=== PATIENT | female | born 1945 | race Caucasian/White ===

== ENCOUNTER 2018-11-17 06:34 | Emergency (ER) | payer MEDICARE, SELFPAY ==
--- NOTE | 2018-11-17 | DI.MRI.S_ITS ---
PROCEDURE: MR ANGIO HEAD WO CON INDICATIONS: VERTIGO TECHNIQUE: Noncontrast axial 3-D [id number] MR angiogram, with 3-dimensional maximum intensity projection (MIP) reformats of the internal carotid arteries and posterior circulation then performed. COMPARISON: [facility], CT, CT HEAD/BRAIN WO CON, 11/17/2018, 6:58. [facility], MR, MR HEAD/BRAIN WO CON, 11/17/2018, 10:27. FINDINGS: Image quality: Excellent. Anterior circulation: Intracranial internal carotid arteries demonstrate normal size and intraluminal flow signal. The flow within the paired anterior cerebral arteries is normal and symmetric. The flow within the middle cerebral arteries is normal and symmetric. The anterior communicating artery appears patent. No focal stenoses, occlusions, or aneurysms. Posterior circulation: Visualized portions of the vertebral arteries demonstrate normal caliber, and join to form a normal appearing basilar artery. The flow within the posterior cerebral arteries is normal and symmetric. No focal stenoses, occlusions, or aneurysms. IMPRESSION: 1. No focal stenosis or occlusion of the central intracranial arteries. Dictated by: Mk Whaley M.D. on 11/17/2018 at 11:25 Approved by: Mk Whaley M.D. on 11/17/2018 at 11:28
[2018-11-17 06:42] VITALS: BP 143/73; PULSE 62; RESP 15; TEMP 37.4; O2SAT 100; BMI 24.8
[2018-11-17 07:04] LABS: Add Manual Diff / Slide Review NO; Basophils Absolute Auto 100 /uL (0-100); Basophils Percent Auto 1.2 % (0-2); Eosinophils Absolute Auto 100 /uL (0-450); Eosinophils Percent Auto 2.1 % (2-4); Hematocrit 41.3 % (36-46); Hemoglobin 13.8 g/dL (12.0-16.0); Lymphocytes Absolute Auto 1400 /uL (1100-4500); Lymphocytes Percent Auto 26.2 % (25-40); Mean Corpuscular HGB Conc 33.4 % (30-36); Mean Corpuscular Hemoglobin 31.5 PG (26-34); Mean Corpuscular Volume 94.5 fL (80-100); Monocytes Absolute Auto 500 /uL (0-900); Monocytes Percent Auto 8.8 % (3-14); Neutrophils Absolute Auto 3300 /uL (1500-7000); Neutrophils Percent Auto 61.7 % (50-75); Platelet Count 207 X10^3/uL (150-400); Red Blood Cell Count 4.37 X10^6/uL (4.0-5.2); Red Cell Distribution Width 13.1 % (11.6-14.8); White Blood Cell Count 5.3 X10^3/uL (4.5-11.0)
[2018-11-17 07:05] LABS: Prothrombin Time 11.2 SECONDS (10.1-12.7)
[2018-11-17 07:07] LABS: PTT Partial Thromboplastin Tim 26 SECONDS (26.4-36.2)
--- NOTE | 2018-11-17 07:07 | ED_ITS ---
HPI - Dizziness General Chief Complaint: Dizziness Stated Complaint: Vertigo Time Seen by Provider: 11/17/18 06:53 Source: patient Mode of arrival: ambulatory Limitations: no limitations History of Present Illness HPI Narrative: Patient is a 73-year-old female here for evaluation of which she thinks is vertigo. She states that this morning she went to get out of bed to go to the bathroom when she had an episode of vertigo. She states she has had vertigo in the past. She states that this felt somewhat like her prior episodes however was not as severe. She cannot specifically say that she thought it was a room spinning sensation however she thinks it was this. She was able to walk to the bathroom without any problems. Went back and got into bed. Still had the symptoms. He came in because she stated that the last time she had vertigo lasted for extended period of time and she wanted to get medications before this happened again. She denied any other associated symptoms to include headache, vision changes, ringing in her ears, palpitations , chest pain or shortness of breath. She has had TIAs in the past. She states that her symptoms associated that were problems with speaking. She has no residual deficits. She has had a history of an AR in the past. She had an angioplasty. No cardiac stents. She does take an 81 mg aspirin on a daily basis but however has stopped this medication recently because she is scheduled to undergo a manipulation under anesthesia for a right total knee arthroplasty complications. Patient states that her symptoms do seem to reoccur when she moves her head however it is not every time she moves her head. The symptoms also occur when she is not moving. Related Data Previous Rx's Medication Instructions Recorded aspirin 81 mg tablet,delayed 81 mg PO DAILY #30 tab 04/07/18 release atenolol 25 mg tablet 25 mg PO DAILY #30 tab 04/07/18 meclizine 25 mg PO BID-TID PRN #20 tab 11/17/18 Allergies Allergy/AdvReac Type Severity Reaction Status Date / Time hydrocodone Allergy Verified 04/07/18 10:43 Review of Systems Constitutional Denies fatigue, Denies fever(s), Denies headache(s), Denies lethargy, Denies malaise and Denies weakness Eyes Denies blurry vision and Denies diplopia ENT Ears, Nose, Mouth, and Throat: Reports vertigo, Reports dizziness, Denies headache(s), Denies hearing loss, Denies neck mass, Denies neck pain, Reports disequilibrium and Denies sinus pressure Cardiovascular Denies chest pain, Denies syncope, Denies palpitations and Denies dyspnea Respiratory Denies cough and Denies dyspnea Gastrointestinal Gastrointestinal: Denies abdominal pain, Denies change in bowel habits, Denies cramping, Denies nausea and Denies vomiting Genitourinary Denies dysuria Musculoskeletal Denies myalgias, Denies arthralgias, Denies neck pain and Denies tingling Integumentary/Breasts Denies lesions and Denies rash Neurologic Denies abnormal speech, Denies behavioral changes, Reports vertigo, Reports dizziness, Denies syncope, Denies headache(s), Denies tingling, Reports disequilibrium and Denies weakness Psychiatric Denies behavioral changes Endocrine Denies fatigue and Denies palpitations Hematologic/Lymphatic Comments: Not on anticoagulation PFSH Medical History Coronary artery disease (Acute) TIA (transient ischemic attack) (Acute) Surgical History H/O total knee replacement (Acute) Social History Smoking Status: Never smoker Social History Smoking Status: Never smoker Exam Initial Vital Signs Initial Vital Signs: Vital Signs Temperature 99.4 F 11/17/18 06:42 Pulse Rate 62 11/17/18 06:42 Respiratory Rate 15 11/17/18 06:42 Blood Pressure 143/73 H 11/17/18 06:42 Pulse Oximetry 100 11/17/18 06:42 Const General: cooperative, healthy appearing, comfortable, well developed, well groomed and No acute distress Orientation: alert, awake and oriented x3 HENMT Head: normal to inspection and normocephalic Ears: TM's normal bilaterally Resp Effort & Inspection: normal respiratory effort Auscultation: clear to auscultation bilaterally Cardio Rate: regular rate Rhythm: regular rhythm Pulses: radial pulses present GI Inspection: non-distended Palpation: soft, No firm and No tender Back/Spine/Pelvis Back: No CVA tenderness Skin Lesions: no lesions Rashes: no rashes Neuro General: alert, awake and oriented x3 Cranial Nerves: CN's II-XI intact bilaterally Cognition: normal cognition Speech: speech normal Motor: muscle tone normal throughout Sensory Exam: no sensory deficits noted Other: Joaquín-Hallpike negative both left and right Extrem General: normal to inspection and capillary refill normal Psych Appearance: grossly normal and well kempt Course Orders Ordered: ED Orders 11/17/18 06:47 Basic Metabolic Panel Stat Complete Blood Count AUTO DIFF Stat Partial Thromboplastin Time Stat Prothrombin Time INR Stat 11/17/18 06:57 EKG-12 Lead Stat 11/17/18 07:10 CT head/brain wo con Stat 11/17/18 07:15 Urine Culture Stat Urine Drug Screen, Rapid Stat Urine Microscopic Stat 11/17/18 07:48 MR head/brain wo con Stat Sodium Chloride (Normal Saline 0.9%) 1,000 mls @ 150 mls/hr IV CONT JESUS Last Admin: 11/17/18 08:40 Dose: 150 mls/hr Discontinued Medications Diazepam (Valium) 5 mg PO NOW ONE Stop: 11/17/18 08:04 Last Admin: 11/17/18 10:08 Dose: 5 mg Vital Signs - 8 hr 11/17/18 06:42 11/17/18 07:23 11/17/18 07:30 Temperature 99.4 F Pulse Rate 62 63 56 L Respiratory Rate 15 14 19 Blood Pressure 143/73 H Blood Pressure [Left Arm] 155/61 H 135/63 Pulse Oximetry 100 97 100 11/17/18 10:00 Temperature Pulse Rate 66 Respiratory Rate 12 Blood Pressure Blood Pressure [Left Arm] 123/60 Pulse Oximetry 100 MDM - Dizziness Lab Data Attestation: I reviewed the patient's lab results. Result diagrams: 11/17/18 06:47 11/17/18 06:47 Lab Results 11/17/18 11/17/18 11/17/18 Range/Units 06:47 06:47 06:47 WBC 5.3 (4.5-11.0) X10^3/uL RBC 4.37 (4.0-5.2) X10^6/uL Hgb 13.8 (12.0-16.0) g/dL Hct 41.3 (36-46) % MCV 94.5 (80-100) fL MCH 31.5 (26-34) PG MCHC 33.4 (30-36) % RDW 13.1 (11.6-14.8) % Plt Count 207 (150-400) X10^3/uL Neut % (Auto) 61.7 (50-75) % Lymph % (Auto) 26.2 (25-40) % Hardin % (Auto) 8.8 (3-14) % Eos % (Auto) 2.1 (2-4) % Baso % (Auto) 1.2 (0-2) % Neut # (Auto) 3300 (1105-1068) /uL Lymph # (Auto) 1400 (9590-8812) /uL Hardin # (Auto) 500 (0-900) /uL Eos # (Auto) 100 (0-450) /uL Baso # (Auto) 100 (0-100) /uL PT 11.2 (10.1-12.7) SECONDS INR 1.0 (0.9-1.3) APTT 26 L (26.4-36.2) SECONDS Sodium 137 (137-145) mmol/L Potassium 3.8 (3.4-5.1) mmol/L Chloride 105 (98-107) mmol/L Carbon Dioxide 24 (22-32) mmol/L BUN 19 H (7-17) mg/dL Creatinine 0.80 (0.52-1.04) mg/dL Estimated GFR > 60.0 (>60) mL/min BUN/Creatinine Ratio 23.8 H (6-22) Glucose 106 (80-110) mg/dL Calcium 9.3 (8.4-10.2) mg/dL Urine RBC (0-5/HPF) Urine WBC (0-5/HPF) Ur Squamous Epith Cells Urine Bacteria (None) Ur Culture Indicated? Urine Opiates Screen (Negative) Ur Oxycodone Screen (Negative) Urine Methadone Screen (Negative) Ur Barbiturates Screen (Negative) U Tricyclic Antidepress (Negative) Ur Phencyclidine Scrn (Negative) Ur Amphetamines Screen (Negative) U Methamphetamines Scrn (Negative) Ur MDMA Scrn (Ecstasy) (Negative) U Benzodiazepines Scrn (Negative) Urine Cocaine Screen (Negative) U Marijuana (THC) Screen (Negative) 11/17/18 11/17/18 Range/Units 07:15 07:15 WBC (4.5-11.0) X10^3/uL RBC (4.0-5.2) X10^6/uL Hgb (12.0-16.0) g/dL Hct (36-46) % MCV (80-100) fL MCH (26-34) PG MCHC (30-36) % RDW (11.6-14.8) % Plt Count (150-400) X10^3/uL Neut % (Auto) (50-75) % Lymph % (Auto) (25-40) % Hardin % (Auto) (3-14) % Eos % (Auto) (2-4) % Baso % (Auto) (0-2) % Neut # (Auto) (5881-2042) /uL Lymph # (Auto) (2687-1367) /uL Hardin # (Auto) (0-900) /uL Eos # (Auto) (0-450) /uL Baso # (Auto) (0-100) /uL PT (10.1-12.7) SECONDS INR (0.9-1.3) APTT (26.4-36.2) SECONDS Sodium (137-145) mmol/L Potassium (3.4-5.1) mmol/L Chloride (98-107) mmol/L Carbon Dioxide (22-32) mmol/L BUN (7-17) mg/dL Creatinine (0.52-1.04) mg/dL Estimated GFR (>60) mL/min BUN/Creatinine Ratio (6-22) Glucose (80-110) mg/dL Calcium (8.4-10.2) mg/dL Urine RBC 0-1/hpf (0-5/HPF) Urine WBC 0-1/hpf (0-5/HPF) Ur Squamous Epith Cells 0-1 /hpf Urine Bacteria Few (2-10) H (None) Ur Culture Indicated? Specimen cultured Urine Opiates Screen Positive H (Negative) Ur Oxycodone Screen Negative (Negative) Urine Methadone Screen Negative (Negative) Ur Barbiturates Screen Negative (Negative) U Tricyclic Antidepress Negative (Negative) Ur Phencyclidine Scrn Negative (Negative) Ur Amphetamines Screen Negative (Negative) U Methamphetamines Scrn Negative (Negative) Ur MDMA Scrn (Ecstasy) Negative (Negative) U Benzodiazepines Scrn Negative (Negative) Urine Cocaine Screen Negative (Negative) U Marijuana (THC) Screen Negative (Negative) Urine Dip Bedside Urine Glucose Negative Bedside Urine Bilirubin - Negative Bedside Urine Ketone - Negative Urine Specific [place] 1.015 Bedside Urine Occult Blood - Negative Bedside Urine pH 7.0 Bedside Urine Protein - Negative Bedside Urine Urobilinogen - Negative Bedside Urine Nitrite - Negative Bedside Urine Leukocytes + [address] scan - head: Radiologist's impression: [address] [id number] [address] Scan Report Signed Patient: María Flynn PMR#: [id number] : 7Acct:[id number] Age/Sex: 73 / FDate of Service: 11/17/18 Loc: ED Accession Number: [id number] Procedure: CT head/brain wo con Ordering Provider: Praful De La Fuente D.O. PROCEDURE: CT HEAD/BRAIN WO CON INDICATIONS: ataxia, dizziness, no injury, on ASA. NO TPA TECHNIQUE: Noncontrast 4.5 mm thick angled axial sections acquired from the foramen magnum to the vertex, with coronal and sagittal reformats. For radiation dose reduction, the following was used: automated exposure control, adjustment of mA and/or kV according to patient size. COMPARISON: None. FINDINGS: Image quality: Excellent. CSF spaces: Basal cisterns are patent. No extra-axial fluid collections. The ventricles are symmetric in size and shape. Brain: No intracranial bleeds or masses. There is cerebral volume loss for age , with resultant ventricular and sulcal prominence. There are periventricular and deep white matter chronic small vessel ischemic changes. Chronic, small, bilateral basal ganglia lacunar infarcts versus prominent perivascular spaces. There is intracranial internal carotid artery and vertebral artery atherosclerosis. Skull and face: Calvarium and visualized facial bones appear intact, without suspicious lesions. Sinuses: Visualized sinuses and mastoids are clear. IMPRESSION: No acute intracranial disease process. Dictated by: Hannah Bardales MD, PhD on 11/17/2018 at 7:47 Approved by: Hannah Bardales MD, PhD on 11/17/2018 at 7:49 MRI - head: Radiologist's impression: [address] [address] Magnetic Resonance Report Signed Patient: María Flynn PMR#: [id number] : 7Acct:[id number] Age/Sex: 73 / FDate of Service: 11/17/18 Loc: ED Accession Number: [id number] Procedure: MR head/brain wo con Ordering Provider: Mal Blake D.O. PROCEDURE: MR HEAD/BRAIN WO CON INDICATIONS: vertigo TECHNIQUE: Non-contrast axial T1 spin echo, axial T2 fast spin echo, sagittal and axial FLAIR, coronal T2 fast spin echo, axial gradient echo, axial diffusion and ADC through the brain. COMPARISON: [facility], CT, CT HEAD/BRAIN WO CON, 11/17/2018, 6:58. FINDINGS: Image quality: Excellent. CSF spaces: Ventricles appear symmetric in size and shape. There is minimal cerebral volume loss with prominence of the sulci. Basal cisterns are patent. No extra- axial fluid collections. Brain: No intracranial hemorrhage, mass, or mass effect. Diffusion-weighted images demonstrate no acute infarcts. There are bilateral scattered foci of subcortical and periventricular white matter T2 hyperintensity consistent with [id number] chronic small vessel ischemic changes. There is a small ovoid T2 hyperintense structure measuring up to 0.8 cm inferior to the left basal ganglia consistent with a small choroidal fissure cyst, prominent perivascular Virchow-Levon space, or sequelae of a prior lacunar infarct. There is no corresponding restricted diffusion. Faulkner/ white matter interface is preserved. Brainstem appears normal. Normal intravascular flow voids are present. Skull and face: Calvarial bone marrow is normal in signal. Orbits are normal. Sinuses: Sinuses demonstrate mild mucosal thickening within the ethmoid and sphenoid sinuses.. IMPRESSION: 1. No evidence of infarct or other acute intracranial abnormality. 2. Mild to moderate chronic white matter small vessel ischemic changes and minimal cerebral volume loss. 3. Small cystic focus inferior to the left basal ganglia compatible with a choroidal fissure cyst, a prominent Virchow-Levon space, or sequela of a prior small lacunar infarct. Dictated by: Mk Whaley M.D. on 11/17/2018 at 11:20 ECG Data Attestation: I personally reviewed and interpreted this ECG as follows: Prior ECG tracings: not available for review Interpretation: Sinus bradycardia Ventricular rate of 54 Normal axis Normal QRS Normal QTC No ST T wave changes MDM Narrative Medical decision making narrative: Patient without symptoms here in the emergency department. MRI shows no signs of a stroke. Given her history of vertigo and the lack of other definitive diagnosis I do feel like this is a peripheral vertigo. Will send home with meclizine. Patient was given care instructions. She was given return instructions. Patient expressed understanding and agreement with plan. Discharge Plan Departure Patient Disposition: Home Clinical Impression: Vertigo Instructions: Vertigo (Alternative Therapy), DI for Vertigo Activity Restrictions/Additional Instructions: Take her medication as needed as directed. I do recommend you find it primary care doctor in the area. Be careful with changing positions such as going from lying to sitting or sitting to standing. Return to the emergency department for any new or worsening symptoms Prescriptions: New meclizine 25 mg tablet 25 mg PO BID-TID PRN (Reason: motion sickness) Qty: 20 RF: 0 No Action atenolol 25 mg tablet 25 mg PO DAILY Qty: 30 RF: 0 aspirin [Adult Aspirin Regimen] 81 mg tablet,delayed release (DR/EC) 81 mg PO DAILY Qty: 30 RF: 0
[2018-11-17 07:09] LABS: BUN Creatinine Ratio 23.8 (6-22); Blood Urea Nitrogen 19 mg/dL (7-17); Calcium 9.3 mg/dL (8.4-10.2); Carbon Dioxide 24 mmol/L (22-32); Chloride 105 mmol/L (98-107); Estimated Glomerular Filt Rate > 60.0 mL/min (>60); Glucose 106 mg/dL (80-110); HEMOLYSIS < 15 (0-50); Potassium 3.8 mmol/L (3.4-5.1); Sodium 137 mmol/L (137-145)
--- NOTE | 2018-11-17 07:10 | DI.CT.S_ITS ---
PROCEDURE: CT HEAD/BRAIN WO CON INDICATIONS: ataxia, dizziness, no injury, on ASA. NO TPA TECHNIQUE: Noncontrast 4.5 mm thick angled axial sections acquired from the foramen magnum to the vertex, with coronal and sagittal reformats. For radiation dose reduction, the following was used: automated exposure control, adjustment of mA and/or kV according to patient size. COMPARISON: None. FINDINGS: Image quality: Excellent. CSF spaces: Basal cisterns are patent. No extra-axial fluid collections. The ventricles are symmetric in size and shape. Brain: No intracranial bleeds or masses. There is cerebral volume loss for age, with resultant ventricular and sulcal prominence. There are periventricular and deep white matter chronic small vessel ischemic changes. Chronic, small, bilateral basal ganglia lacunar infarcts versus prominent perivascular spaces. There is intracranial internal carotid artery and vertebral artery atherosclerosis. Skull and face: Calvarium and visualized facial bones appear intact, without suspicious lesions. Sinuses: Visualized sinuses and mastoids are clear. IMPRESSION: No acute intracranial disease process. Dictated by: Hannah Bardales MD, PhD on 11/17/2018 at 7:47 Approved by: Hannah Bardales MD, PhD on 11/17/2018 at 7:49
[2018-11-17 07:23] VITALS: BP 155/61; PULSE 63; RESP 14; O2SAT 97
[2018-11-17 07:30] VITALS: BP 135/63; PULSE 56; RESP 19; O2SAT 100
[2018-11-17 07:32] LABS: Urine Amphetamines Negative (Negative); Urine Barbiturates Negative (Negative); Urine Benzodiazepines Negative (Negative); Urine Cocaine Negative (Negative); Urine MDMA Negative (Negative); Urine Methadone Negative (Negative); Urine Methamphetamines Negative (Negative); Urine Morphine/Opi cutoff 2000 Positive (Negative); Urine Oxycodone Negative (Negative); Urine Phencyclidine Negative (Negative); Urine Tetrahydrocannabinol Negative (Negative); Urine Tricyclic Antidepressant Negative (Negative)
[2018-11-17 07:45] LABS: Bacteria Urine Few (2-10); Culture Indicated Urine Specimen Cultured; RBC Urine 0-1/HPF (0-5/HPF); Squamous Epithelial Cell Urine 0-1 /HPF; WBC Urine 0-1/HPF (0-5/HPF)
--- NOTE | 2018-11-17 07:48 | DI.MRI.S_ITS ---
PROCEDURE: MR HEAD/BRAIN WO CON INDICATIONS: vertigo TECHNIQUE: Non-contrast axial T1 spin echo, axial T2 fast spin echo, sagittal and axial FLAIR, coronal T2 fast spin echo, axial gradient echo, axial diffusion and ADC through the brain. COMPARISON: [facility], CT, CT HEAD/BRAIN WO CON, 11/17/2018, 6:58. FINDINGS: Image quality: Excellent. CSF spaces: Ventricles appear symmetric in size and shape. There is minimal cerebral volume loss with prominence of the sulci. Basal cisterns are patent. No extra-axial fluid collections. Brain: No intracranial hemorrhage, mass, or mass effect. Diffusion-weighted images demonstrate no acute infarcts. There are bilateral scattered foci of subcortical and periventricular white matter T2 hyperintensity consistent with [id number] chronic small vessel ischemic changes. There is a small ovoid T2 hyperintense structure measuring up to 0.8 cm inferior to the left basal ganglia consistent with a small choroidal fissure cyst, prominent perivascular Virchow-Levon space, or sequelae of a prior lacunar infarct. There is no corresponding restricted diffusion. Faulkner/white matter interface is preserved. Brainstem appears normal. Normal intravascular flow voids are present. Skull and face: Calvarial bone marrow is normal in signal. Orbits are normal. Sinuses: Sinuses demonstrate mild mucosal thickening within the ethmoid and sphenoid sinuses.. IMPRESSION: 1. No evidence of infarct or other acute intracranial abnormality. 2. Mild to moderate chronic white matter small vessel ischemic changes and minimal cerebral volume loss. 3. Small cystic focus inferior to the left basal ganglia compatible with a choroidal fissure cyst, a prominent Virchow-Levon space, or sequela of a prior small lacunar infarct. Dictated by: Mk Whaley M.D. on 11/17/2018 at 11:20 Approved by: Mk Whaley M.D. on 11/17/2018 at 11:25
[2018-11-17] MEDS: SODIUM CHLORIDE 0.9% 1,000 ML 150 ML IV (08:40)
--- NOTE | 2018-11-17 08:40 | PC.NURSE ---
Per patient request spoke with her to provide an update of the plan of care for his .
[2018-11-17 10:00] VITALS: BP 123/60; PULSE 66; RESP 12; O2SAT 100
[2018-11-17] MEDS: diazePAM 5 MG TABLET PO (10:08)
[2018-11-17 12:00] VITALS: BP 129/67; PULSE 65; RESP 14; O2SAT 99
== END 2018-11-17 12:01 | disposition home or self-care (01) ==
PROVIDERS: Emergency Medicine; Emergency Provider Emergency Medicine
DX: R42 Dizziness and giddiness (principal)
CPT/HCPCS: 36591; 70450; 70544; 70551; 80048; 80305; 81003; 81015; 85025; 85610; 85730; 87086; 93005; 96360; 96361; 99285

== ENCOUNTER → 2019-03-26 09:29 | Outpatient (CLI) | payer MEDICARE, SELFPAY ==
[2019-03-26 10:54] LABS: Alanine Aminotransferase 15 IU/L (9-52); Albumin 3.9 g/dL (3.5-5.0); Albumin Globulin Ratio 1.5 (1.0-2.8); Alkaline Phosphatase 49 U/L (38-126); Aspartate Aminotransferase 23 IU/L (14-36); BUN Creatinine Ratio 26.3 (6-22); Bilirubin Total 0.8 mg/dL (0.2-1.3); Blood Urea Nitrogen 21 mg/dL (7-17); Calcium 9.2 mg/dL (8.4-10.2); Carbon Dioxide 32 mmol/L (22-32); Chloride 102 mmol/L (98-107); Cholesterol 148 mg/dL (140-199); Estimated Glomerular Filt Rate > 60.0 mL/min (>60); Globulin 2.6 g/dL (1.7-4.1); Glucose 90 mg/dL (80-110); HDL Cholesterol 73 mg/dL (40-60); HEMOLYSIS < 15 (0-50); LDL Cholesterol Calculated 55 mg/dL (<100); Potassium 4.4 mmol/L (3.4-5.1); Sodium 139 mmol/L (137-145); Total Protein 6.5 g/dL (6.3-8.2); Triglycerides 100 mg/dL (35-150)
[2019-03-26 11:08] LABS: Vitamin D 25 Hydroxy (D3) 62.2 ng/mL (30.0-100.0)
== END ==
PROVIDERS: Visit Provider Internal Medicine Cardiovascular Disease
DX: E55.9 Vitamin D deficiency, unspecified (principal); I65.23 Occlusion and stenosis of bilateral carotid arteries; I25.10 Atherosclerotic heart disease of native coronary artery without angina pectoris
CPT/HCPCS: 36415; 80053; 80061; 82306

== ENCOUNTER → 2019-08-29 09:55 | Outpatient (CLI) | payer MEDICARE, SELFPAY ==
--- NOTE | 2019-08-29 | DI.MG.S_ITS ---
BILATERAL DIGITAL SCREENING MAMMOGRAM 3D/2D WITH CAD: 08/29/2019 CLINICAL: Routine screening. Family history of breast cancer. Comparison is made to exams dated: 11/16/2014 mammogram - [facility], 01/17/2016 mammogram, 09/10/2017 mammogram, and 08/27/2018 mammogram - [facility]. The tissue of both breasts is heterogeneously dense. This may lower the sensitivity of mammography. Current study was also evaluated with a Computer Aided Detection (CAD) system. There are possible 0.3 cm grouped fine calcifications in the right breast posterior depth lateral region seen on the craniocaudal view only. These are increased in number. No other significant masses, calcifications, or other findings are seen in either breast. IMPRESSION: INCOMPLETE: NEEDS ADDITIONAL IMAGING EVALUATION The possible 0.3 cm grouped fine calcifications in the right breast are indeterminate. Mediolateral and spot magnification views are recommended. This exam was interpreted at Station ID: [id number]. NOTE: For mammograms, a report in lay terms will be sent to the patient. Approximately 15% of breast malignancies will not be visualized mammographically. In the management of a palpable breast mass, a negative mammogram must not discourage biopsy of a clinically suspicious lesion. Electronically Signed By: Alexandru royal/le:08/31/2019 07:13:47 letter sent: Additional Imaging Needed ACR BI-RADS Category 0: Incomplete [id number]
== END ==
DX: Z12.31 Encounter for screening mammogram for malignant neoplasm of breast (principal); Z80.3 Family history of malignant neoplasm of breast
CPT/HCPCS: 77063; 77067

== ENCOUNTER → 2019-09-15 13:58 | Outpatient (CLI) | payer MEDICARE, SELFPAY ==
--- NOTE | 2019-09-15 | DI.MG.S_ITS ---
UNILATERAL RIGHT DIGITAL DIAGNOSTIC MAMMOGRAM 3D/2D WITH ADDITIONAL VIEWS: 09/15/2019 CLINICAL: Additional evaluation requested from prior study. Comparison is made to exams dated: 08/29/2019 mammogram - [facility], 08/27/2018 mammogram, and 09/10/2017 mammogram - [facility]. The tissue of right breast is heterogeneously dense. This may lower the sensitivity of mammography. Previously identified calcifications in the right breast posterior depth lateral region seen on the craniocaudal view only on comparison screening mammogram of 08/29/19 demonstrate a more punctate morphology on magnification views; these calcifications are less prominent than on comparison screening exam and may have been accentuated by tomosynthesis reconstruction artifact. IMPRESSION: PROBABLY BENIGN Persistent punctate calcifications in the right breast posterior depth lateral region best seen on the craniocaudal view are less prominent than on comparison screening exam and are probably benign. A follow-up diagnostic mammogram in 6 months is recommended to demonstrate stability and to exclude underlying malignancy. The patient was advised to monitor her breasts and to return sooner for reevaluation if she feels anything grow or change in her breasts. This exam was interpreted at Station ID: [id number]. NOTE: For mammograms, a report in lay terms will be sent to the patient. Approximately 15% of breast malignancies will not be visualized mammographically. In the management of a palpable breast mass, a negative mammogram must not discourage biopsy of a clinically suspicious lesion. Electronically Signed By: Christopher Salazar M.D. ecl/:09/15/2019 14:55:05 letter sent: Followup Recommended ACR BI-RADS Category 3: Probably benign [id number]
== END ==
PROVIDERS: Visit Provider Internal Medicine
DX: R92.1 Mammographic calcification found on diagnostic imaging of breast (principal)
CPT/HCPCS: 77065; G0279

== ENCOUNTER → 2020-02-29 12:46 | Outpatient (CLI) | payer MEDICARE, SELFPAY ==
--- NOTE | 2020-02-29 12:49 | DI.MG.S_ITS ---
UNILATERAL RIGHT DIGITAL DIAGNOSTIC MAMMOGRAM 3D/2D SHORT-TERM FOLLOW-UP: 02/29/2020 CLINICAL: Patient returns for a 6 month follow up of the right breast. Comparison is made to exams dated: 09/15/2019 mammogram, 08/29/2019 mammogram - [facility], and 08/27/2018 mammogram - [facility]. The tissue of right breast is heterogeneously dense. This may lower the sensitivity of mammography. There are stable grouped fine punctate calcifications in the right breast at 11 o'clock posterior depth. No other significant masses or calcifications are seen in the breast. IMPRESSION: PROBABLY BENIGN The grouped fine punctate calcifications in the right breast are stable. A follow-up mammogram and possible ultrasound in 6 months is recommended to demonstrate stability. This exam was interpreted at Station ID: [id number]. NOTE: For mammograms, a report in lay terms will be sent to the patient. Approximately 15% of breast malignancies will not be visualized mammographically. In the management of a palpable breast mass, a negative mammogram must not discourage biopsy of a clinically suspicious lesion. Electronically Signed By: Rachel Henderson M.D. lk/:03/01/2020 14:02:23 letter sent: Followup Recommended ACR BI-RADS Category 3: Probably benign [id number]
== END ==
PROVIDERS: PCP Internal Medicine; Referring Provider Internal Medicine; Visit Provider Internal Medicine
DX: R92.8 Other abnormal and inconclusive findings on diagnostic imaging of breast (principal); R92.1 Mammographic calcification found on diagnostic imaging of breast
CPT/HCPCS: 77065; G0279

== ENCOUNTER → 2020-04-29 08:12 | Outpatient (CLI) | payer MEDICARE, SELFPAY ==
[2020-04-29 10:51] LABS: Alanine Aminotransferase 20 IU/L (<35); Albumin 4.1 g/dL (3.5-5.0); Albumin Globulin Ratio 1.6 (1.0-2.8); Alkaline Phosphatase 54 U/L (38-126); Aspartate Aminotransferase 28 IU/L (14-36); BUN Creatinine Ratio 21.1 (6-22); Bilirubin Total 0.7 mg/dL (0.2-1.3); Blood Urea Nitrogen 19 mg/dL (7-17); Calcium 9.6 mg/dL (8.4-10.2); Carbon Dioxide 30 mmol/L (22-32); Chloride 104 mmol/L (98-107); Cholesterol 149 mg/dL (140-199); Estimated Glomerular Filt Rate > 60.0 mL/min (>60); Globulin 2.6 g/dL (1.7-4.1); Glucose 96 mg/dL (80-110); HDL Cholesterol 60 mg/dL (40-60); HEMOLYSIS < 15 (0-50); LDL Cholesterol Calculated 59 mg/dL (<100); Potassium 5.3 mmol/L (3.4-5.1); Sodium 138 mmol/L (137-145); Total Protein 6.7 g/dL (6.3-8.2); Triglycerides 148 mg/dL (35-150)
== END ==
PROVIDERS: PCP Internal Medicine; Referring Provider Internal Medicine; Visit Provider Internal Medicine
DX: R73.03 Prediabetes (principal); E78.5 Hyperlipidemia, unspecified; I10 Essential (primary) hypertension; I65.23 Occlusion and stenosis of bilateral carotid arteries
CPT/HCPCS: 36415; 80053; 80061; 83036; 84443

== ENCOUNTER 2020-06-24 17:53 | Emergency (ER) | payer MEDICARE, SELFPAY ==
[2020-06-24] VITALS (11 sets, daily range): BP systolic 121–164; BP diastolic 58–69; PULSE 69–76; RESP 18; O2SAT 94–98; BMI 26.1
--- NOTE | 2020-06-24 18:05 | ED_ITS ---
HPI - Abdominal Pain General Chief Complaint: Abdominal Pain Stated Complaint: abdominal pain since 2pm Time Seen by Provider: 06/24/20 18:05 Source: patient Mode of arrival: Ambulatory Limitations: no limitations History of Present Illness HPI narrative: 74-year-old woman with a history of an [place], prior TIA hypertension and hyperlipidemia who presents with worsening abdominal pain over the course of today. Awoke with mild low pelvic cramping and this progressed to increasing abdominal pain through the entire abdomen and now is having some sharp pain in the midepigastrium. She has had 3 bowel movements without diarrhea. She has some mild nausea but has not vomited. Abdominal surgeries include tubal ligati on. Related Data Home Medications Medication Instructions Recorded Confirmed aspirin 325 mg PO DAILY 11/17/18 05/25/20 ferrous gluconate 324 mg PO BID 11/17/18 05/25/20 atorvastatin 40 mg tablet 40 mg PO DAILY 12/11/19 05/25/20 Previous Rx's Medication Instructions Recorded atenolol 25 mg tablet 25 mg PO DAILY #30 tab 04/07/18 meclizine 25 mg PO BID-TID PRN #20 tab 11/17/18 benzonatate 100 mg capsule 100 mg PO BID PRN #30 cap 12/11/19 ondansetron 4 mg disintegrating 4 mg PO Q6H PRN #10 tab 05/25/20 tablet ciprofloxacin HCl 500 mg PO BID #14 tab 06/24/20 metronidazole 500 mg PO TID #21 tab 06/24/20 Allergies Allergy/AdvReac Type Severity Reaction Status Date / Time hydrocodone Allergy Verified 06/24/20 17:57 Review of Systems Review of Systems Narrative: Pertinent positive and negative findings as per HPI Remainder of review of systems is otherwise unremarkable for Constitutional: Fevers, chills, weakness ENT: No sore throat, neck pain, ear pain CV: Chest pain, palpitations, dyspnea on exertion Respiratory: Cough, wheeze, dyspnea : Dysuria, hematuria, flank pain MS: Muscle weakness, numbness, joint swelling or warmth Skin: Rashes, nonhealing lesions Neuro: Syncope, dizziness, tingling Patient History Medical History Coronary artery disease (Acute) TIA (transient ischemic attack) (Acute) URI (upper respiratory infection) (Acute) Surgical History H/O total knee replacement (Acute) Social History Smoking Status: Never smoker Smoking Status: Never smoker alcohol intake frequency: 0-2 drinks per day Substance Use Type: does not use Exam Narrative Exam Narrative: General: Healthy appearing, in no acute distress. Able to give a complete and coherent history. Well-nourished well-developed HEENT: Moist mucous membranes, normal sclera with reactive pupils, Neck: No JVD, supple Respiratory: Lungs are clear to auscultation, no wheezing no rales no rhonchi. Full and symmetrical air movement Cardiac: Regular rate and rhythm no murmurs no bruits Abdomen: Mild diffuse tenderness with slight distention, no rebound no guarding and hypoactive bowel tones, no flank pain Skin: Warm and dry, no rashes Neurologic: Grossly neurologically intact with no obvious asymmetries or abnormalities Extremities: No trauma, well perfused Psych: Cooperative, appropriate insight and affect Initial Vital Signs Initial Vital Signs: Vital Signs Pulse Rate 69 06/24/20 17:58 Respiratory Rate 18 06/24/20 17:58 Blood Pressure 141/63 H 06/24/20 17:58 Pulse Oximetry 98 06/24/20 17:58 Course Orders Ordered: ED Orders 06/24/20 18:15 Complete Blood Count AUTO DIFF Stat Comprehensive Metabolic Panel Stat Lipase Stat Partial Thromboplastin Time Stat Prothrombin Time INR Stat 06/24/20 19:05 EKG-12 Lead Stat 06/24/20 19:32 XR abdomen 1V Stat 06/24/20 20:05 CT abdomen pelvis w con Stat Discontinued Medications Hydromorphone HCl (Dilaudid) 0.5 mg IV NOW ONE Stop: 06/24/20 19:32 Last Admin: 06/24/20 19:40 Dose: 0.5 mg Documented by: LORENZO Sodium Chloride (Normal Saline 0.9%) 1,000 mls @ 1,000 mls/hr IV BOLUS ONE Stop: 06/24/20 20:30 Last Infusion: 06/24/20 21:21 Dose: 0 mls/hr Documented by: Infusion: 06/24/20 20:36 Dose: 1,000 mls/hr Documented by: Infusion: 06/24/20 20:00 Dose: 0 mls/hr Documented by: Admin: 06/24/20 19:40 Dose: 1,000 mls/hr Documented by: LORENZO Ondansetron HCl (Zofran) 4 mg IV NOW ONE Stop: 06/24/20 19:32 Last Admin: 06/24/20 19:40 Dose: 4 mg Documented by: LORENZO Vital Signs Vital signs: Vital Signs - 8 hr 06/24/20 17:58 06/24/20 18:55 06/24/20 18:56 Pulse Rate 69 71 70 Respiratory Rate 18 Blood Pressure 141/63 H 121/61 Pulse Oximetry 98 95 95 06/24/20 19:00 06/24/20 19:45 06/24/20 20:02 Pulse Rate 71 73 72 Respiratory Rate Blood Pressure 135/64 Pulse Oximetry 95 96 97 06/24/20 20:03 06/24/20 20:30 06/24/20 21:00 Pulse Rate 73 73 71 Respiratory Rate Blood Pressure 125/58 L Pulse Oximetry 94 98 97 MDM - Abdominal Pain Medical Records Attestation: I reviewed the patient's medical records. Lab Data Attestation: I reviewed the patient's lab results. Result diagrams: 06/24/20 18:15 06/24/20 18:15 Labs: Lab Results 06/24/20 06/24/20 06/24/20 Range/Units 18:15 18:15 18:15 WBC 10.1 (4.5-11.0) X10^3/uL RBC 4.46 (4.0-5.2) X10^6/uL Hgb 14.4 (12.0-16.0) g/dL Hct 41.6 (36-46) % MCV 93.3 (80-100) fL MCH 32.4 (26-34) PG MCHC 34.7 (30-36) % RDW 12.7 (11.6-14.8) % Plt Count 201 (150-400) X10^3/uL Neut % (Auto) 74.6 (50-75) % Lymph % (Auto) 16.0 L (25-40) % [place] % (Auto) 7.7 (3-14) % Eos % (Auto) 1.3 L (2-4) % Baso % (Auto) 0.4 (0-2) % Neut # (Auto) 7500 H (0590-8698) /uL Lymph # (Auto) 1600 (3032-9147) /uL [place] # (Auto) 800 (0-900) /uL Eos # (Auto) 100 (0-450) /uL Baso # (Auto) 0 (0-100) /uL PT 11.2 (10.1-12.7) SECONDS INR 1.0 (0.9-1.3) APTT 29 D (26.4-36.2) SECONDS Sodium 137 (137-145) mmol/L Potassium 4.1 (3.4-5.1) mmol/L Chloride 101 (98-107) mmol/L Carbon Dioxide 32 (22-32) mmol/L BUN 21 H (7-17) mg/dL Creatinine 0.91 (0.52-1.04) mg/dL Estimated GFR > 60.0 (>60) mL/min BUN/Creatinine Ratio 23.1 H (6-22) Glucose 99 (80-110) mg/dL Calcium 9.6 (8.4-10.2) mg/dL Total Bilirubin 0.6 (0.2-1.3) mg/dL AST 29 (14-36) IU/L ALT 19 (<35) IU/L Alkaline Phosphatase 56 (38-126) U/L Total Protein 7.2 (6.3-8.2) g/dL Albumin 4.1 (3.5-5.0) g/dL Globulin 3.1 (1.7-4.1) g/dL Albumin/Globulin Ratio 1.3 (1.0-2.8) Lipase 267 (23-300) U/L Point of care testing: Urine Dip Bedside Urine Glucose Negative Bedside Urine Bilirubin - Negative Bedside Urine Ketone - Negative Urine Specific Jones 1.010 Bedside Urine Occult Blood - Negative Bedside Urine pH 6.5 Bedside Urine Protein - Negative Bedside Urine Urobilinogen - Negative Bedside Urine Nitrite - Negative Bedside Urine Leukocytes - Negative Esterase Imaging Data CT scan - abdomen/pelvis: Attestation: I personally reviewed and interpreted this imaging study as follows: Radiologist's Impression: FINDINGS: Image quality: Excellent. ABDOMEN: Lung bases: Lung bases are clear. Heart size is normal. Solid organs: Liver is normal in size and enhancement. Occasional cystic structures too small to accurately characterize. Gallbladder is unremarkable . Biliary system is non dilated. Pancreas enhances normally. Spleen is normal in size and enhancement. No adrenal nodules. Kidneys demonstrate normal size and enhancement, without hydronephrosis. Sub cm cortical renal cysts bilaterally too small to characterize. Peritoneum and bowel: There is diffuse wall thickening in the distal sigmoid c olon and wall edema. Moderate pericolonic inflammation. There may be an associated inflamed diverticulum along the caudal aspect. There are adjacent small bowel loops in the pelvis, some appear somewhat patulous and contain air-fluid levels and alternate with others which have mildly thickened robles. Scattered diverticula are seen, particularly in the transverse colon. There is an impacted diverticulum in the posterior aspect of the ascending colon. No free fluid or air. Nodes and vessels: No retroperitoneal or mesenteric adenopathy by size criteria. Aorta and inferior vena cava are normal in size. Miscellaneous: No ventral hernias. PELVIS: Genitourinary: Bladder wall thickness is normal. The uterus is normal. Ovarian tissue is not seen. Miscellaneous: No inguinal hernias or adenopathy. Bones: No suspicious bony lesions. No vertebral body compression fractures. IMPRESSION: 1. There is acute inflammation of the mid to distal sigmoid colon compatible w ith colitis. This may be secondary to diverticulitis. 2. There are slightly abnormal loops of distal small bowel demonstrating diffuse wall thickening alternating with mild distention and air-fluid levels. This raises the possibility of inflammatory bowel disease versus enteritis versus a local ileus due to adjacent colon inflammation. 3. Diverticulosis elsewhere throughout the colon. Dictated by: Janelle Paul M.D. on 06/24/2020 at 21:19 Abdominal x-ray: Radiologist's Impression: FINDINGS: Surgical changes and devices: None. Bowel: Bowel gas pattern is normal. Soft tissues: No suspicious abdominal calcifications. Visualized solid organ contours appear normal in size. Bones: No suspicious bony lesions. Minor dextroscoliosis and mild degenerative changes in the hips. IMPRESSION: Nonspecific, nonobstructive bowel gas pattern. Dictated by: Janelle Paul M.D. on 06/24/2020 at 21:18 ECG Data Attestation: I personally reviewed and interpreted this ECG as follows: Interpretation: Sinus rhythm at a rate of 70 PVC, normal intervals, normal axis No acute ST T wave changes MDM Narrative Medical decision making narrative: Labs do not suggest acute infection, acute abdominal x-ray does not suggest an acute bowel obstruction however pain is continuing to increase. Will moved to CT scan CT reveals acute inflammation in the mid to distal sigmoid colon compatible with colitis possible diverticulitis. Diffuse wall thickening through small-bowel with mild distention and air-fluid levels but no overt small-bowel obstruction Patient is feeling much better after pain control and fluids. I suspect that this is a developing diverticulitis however a developing small bowel obstruction is certainly still within the differential. There is no evidence of sepsis, acute coronary syndrome UTI renal stone or other significant surgical pathology in the abdomen Patient will be discharged home with Cipro and Flagyl to treat acute diverticulitis along with instructions to return if she is not improving or is not able to pass stool or air. Patient is safe for home discharge Discharge Plan Departure Patient Disposition: Home Clinical Impression: Diverticulitis Instructions: DI for Diverticulitis Activity Restrictions/Additional Instructions: Thank you for coming in today. Your CT scan looks like you are developing diverticulitis as a cause for your pain. Fortunately there does not look like an acute abscess and there is no evidence of sepsis (bacteria spreading through your body), small-bowel obstruction, gallbladder disease or cardiac issues. You need to complete the course of ciprofloxacin and Flagyl. 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 I hope you feel better Prescriptions: New ciprofloxacin HCl 500 mg tablet 500 mg PO BID Qty: 14 RF: 0 metronidazole 500 mg tablet 500 mg PO TID Qty: 21 RF: 0 No Action atorvastatin 40 mg tablet 40 mg PO DAILY RF: 0 benzonatate [Tessalon Perles] 100 mg capsule 100 mg PO BID PRN (Reason: cough) Qty: 30 RF: 0 atenolol 25 mg tablet 25 mg PO DAILY Qty: 30 RF: 0 ondansetron 4 mg tablet,disintegrating 4 mg PO Q6H PRN (Reason: nausea and vomiting) Qty: 10 RF: 0 meclizine 25 mg tablet 25 mg PO BID-TID PRN (Reason: motion sickness) Qty: 20 RF: 0 aspirin 325 mg tablet 325 mg PO DAILY RF: 0 ferrous gluconate 324 mg (38 mg iron) tablet 324 mg PO BID RF: 0 Referrals: Bashir Villa MD [Primary Care Provider] -
[2020-06-24 19:10] LABS: Add Manual Diff / Slide Review NO; Basophils Absolute Auto 0 /uL (0-100); Basophils Percent Auto 0.4 % (0-2); Eosinophils Absolute Auto 100 /uL (0-450); Eosinophils Percent Auto 1.3 % (2-4); Hematocrit 41.6 % (36-46); Hemoglobin 14.4 g/dL (12.0-16.0); Lymphocytes Absolute Auto 1600 /uL (1100-4500); Mean Corpuscular HGB Conc 34.7 % (30-36); Mean Corpuscular Hemoglobin 32.4 PG (26-34); Mean Corpuscular Volume 93.3 fL (80-100); Monocytes Absolute Auto 800 /uL (0-900); Monocytes Percent Auto 7.7 % (3-14); Neutrophils Absolute Auto 7500 /uL (1500-7000); Neutrophils Percent Auto 74.6 % (50-75); Platelet Count 201 X10^3/uL (150-400); Red Blood Cell Count 4.46 X10^6/uL (4.0-5.2); Red Cell Distribution Width 12.7 % (11.6-14.8); White Blood Cell Count 10.1 X10^3/uL (4.5-11.0)
[2020-06-24 19:12] LABS: Prothrombin Time 11.2 SECONDS (10.1-12.7)
[2020-06-24 19:15] LABS: PTT Partial Thromboplastin Tim 29 SECONDS (26.4-36.2)
[2020-06-24 19:18] LABS: Alanine Aminotransferase 19 IU/L (<35); Albumin 4.1 g/dL (3.5-5.0); Albumin Globulin Ratio 1.3 (1.0-2.8); Alkaline Phosphatase 56 U/L (38-126); Aspartate Aminotransferase 29 IU/L (14-36); BUN Creatinine Ratio 23.1 (6-22); Bilirubin Total 0.6 mg/dL (0.2-1.3); Blood Urea Nitrogen 21 mg/dL (7-17); Calcium 9.6 mg/dL (8.4-10.2); Carbon Dioxide 32 mmol/L (22-32); Chloride 101 mmol/L (98-107); Estimated Glomerular Filt Rate > 60.0 mL/min (>60); Globulin 3.1 g/dL (1.7-4.1); Glucose 99 mg/dL (80-110); HEMOLYSIS 18 (0-50); Lipase 267 U/L (23-300); Potassium 4.1 mmol/L (3.4-5.1); Sodium 137 mmol/L (137-145); Total Protein 7.2 g/dL (6.3-8.2)
--- NOTE | 2020-06-24 19:32 | DI.RAD.S_ITS ---
PROCEDURE: XR ABDOMEN 1V INDICATIONS: abdominal pain and distention TECHNIQUE: One view of the abdomen acquired. COMPARISON: None. FINDINGS: Surgical changes and devices: None. Bowel: Bowel gas pattern is normal. Soft tissues: No suspicious abdominal calcifications. Visualized solid organ contours appear normal in size. Bones: No suspicious bony lesions. Minor dextroscoliosis and mild degenerative changes in the hips. IMPRESSION: Nonspecific, nonobstructive bowel gas pattern. Dictated by: Janelle Paul M.D. on 06/24/2020 at 21:18 Approved by: Janelle Paul M.D. on 06/24/2020 at 21:19
[2020-06-24] MEDS: ONDANSETRON 4 MG/2 ML INJ IV (19:40)
[2020-06-24] MEDS: SODIUM CHLORIDE 0.9% 1,000 ML 1000 ML IV (19:40)
[2020-06-24] MEDS: HYDROMORPHONE 0.5 MG INJ IV (19:40)
--- NOTE | 2020-06-24 20:05 | DI.CT.S_ITS ---
PROCEDURE: CT ABDOMEN PELVIS W CON INDICATIONS: abdominal pain TECHNIQUE: After the administration of intravenous contrast, 5 mm thick sections acquired from the diaphragm to the symphysis. 5 mm coronal and sagittal reformats were acquired. For radiation dose reduction, the following was used: automated exposure control, adjustment of mA and/or kV according to patient size. COMPARISON: None. FINDINGS: Image quality: Excellent. ABDOMEN: Lung bases: Lung bases are clear. Heart size is normal. Solid organs: Liver is normal in size and enhancement. Occasional cystic structures too small to accurately characterize. Gallbladder is unremarkable . Biliary system is non dilated. Pancreas enhances normally. Spleen is normal in size and enhancement. No adrenal nodules. Kidneys demonstrate normal size and enhancement, without hydronephrosis. Sub cm cortical renal cysts bilaterally too small to characterize. Peritoneum and bowel: There is diffuse wall thickening in the distal sigmoid colon and wall edema. Moderate pericolonic inflammation. There may be an associated inflamed diverticulum along the caudal aspect. There are adjacent small bowel loops in the pelvis, some appear somewhat patulous and contain air-fluid levels and alternate with others which have mildly thickened robles. Scattered diverticula are seen, particularly in the transverse colon. There is an impacted diverticulum in the posterior aspect of the ascending colon. No free fluid or air. Nodes and vessels: No retroperitoneal or mesenteric adenopathy by size criteria. Aorta and inferior vena cava are normal in size. Miscellaneous: No ventral hernias. PELVIS: Genitourinary: Bladder wall thickness is normal. The uterus is normal. Ovarian tissue is not seen. Miscellaneous: No inguinal hernias or adenopathy. Bones: No suspicious bony lesions. No vertebral body compression fractures. IMPRESSION: 1. There is acute inflammation of the mid to distal sigmoid colon compatible with colitis. This may be secondary to diverticulitis. 2. There are slightly abnormal loops of distal small bowel demonstrating diffuse wall thickening alternating with mild distention and air-fluid levels. This raises the possibility of inflammatory bowel disease versus enteritis versus a local ileus due to adjacent colon inflammation. 3. Diverticulosis elsewhere throughout the colon. Dictated by: Janelle Paul M.D. on 06/24/2020 at 21:19 Approved by: Janelle Paul M.D. on 06/24/2020 at 21:27
[2020-06-24] MEDS: metroNIDAZOLE 250 MG TABLET 500 MG PO (21:56)
[2020-06-24] MEDS: CIPROFLOXACIN 500 MG TABLET PO (21:56)
== END 2020-06-24 22:05 | disposition home or self-care (01) ==
PROVIDERS: Emergency Provider Emergency Medicine; PCP Internal Medicine
DX: K57.92 Diverticulitis of intestine, part unspecified, without perforation or abscess without bleeding (principal); I10 Essential (primary) hypertension; E78.5 Hyperlipidemia, unspecified
CPT/HCPCS: 36415; 74018; 74177; 80053; 81003; 83690; 85025; 85610; 85730; 93005; 96361; 96374; 96375; 99284; J1170; J2405

== ENCOUNTER → 2020-07-12 12:10 | Outpatient (CLI) | payer MEDICARE, SELFPAY | PROVIDERS: PCP Internal Medicine; Visit Provider Physician Assistant | DX: N89.8 Other specified noninflammatory disorders of vagina (principal) | CPT/HCPCS: 87210 ==

== ENCOUNTER 2020-07-31 15:56 | Emergency (ER) | payer MEDICARE, SELFPAY ==
[2020-07-31 16:02] VITALS: BP 134/73; PULSE 78; RESP 12; TEMP 36.4; O2SAT 97; BMI 26.9
--- NOTE | 2020-07-31 16:05 | PC.NURSE ---
Pain noted to left foot upon waking, no injury or trauma. Some swelling noted, CMS intact. Pain to palpation on left calf. No redness noted, not warm to touch. Flew approx 10 days ago, denies chest pain or SOB
--- NOTE | 2020-07-31 16:06 | DI.US.S_ITS ---
PROCEDURE: US PERIPH VENOUS LOW EXTREM LT INDICATIONS: SWOLLEN LOWER LEG. RECENT FLIGHT TECHNIQUE: Real-time imaging, as well as color and pulse Doppler interrogation, were performed of the lower extremity deep veins from the inguinal ligament to the popliteal fossa. COMPARISON: None. FINDINGS: The common femoral, femoral and popliteal veins are normally compressible, and free of intraluminal thrombus. Color and pulse Doppler demonstrate normal phasic intraluminal flow. There is normal augmentation response to distal compression maneuver. IMPRESSION: Negative for deep venous thrombosis. Dictated by: Fran Frausto M.D. on 07/31/2020 at 15:44 Approved by: Fran Frausto M.D. on 07/31/2020 at 15:44
--- NOTE | 2020-07-31 16:08 | ED.LOWEXIN ---
HPI - Extremity Injury (Lower) <TAM Bergeron - Last Filed: 07/31/20 17:20> General Chief Complaint: Extremity Injury, Lower Stated Complaint: swelling in ankle and lwr Left leg Time Seen by Provider: 07/31/20 16:00 Source: patient and family Mode of arrival: Ambulatory Limitations: no limitations History of Present Illness HPI Narrative: The patient is a 75-year-old female nonsmoker who presents with her for chief complaint of swelling in her left ankle and foot. She states she woke up this morning and had some pain, notice of slightly swollen. Denies any fevers vomiting diarrhea chest pain or shortness of breath. She notes that the bottom of her left foot is painful as well as her left calf. She and her flew recently, traveling to [place] about 10 days ago. Otherwise no immobility, though they note that the flights or long. No personal blood clots. The patient states that a few days ago she had physical therapy evaluation, and was doing exercise machines for the 1st time. Related Data Home Medications Medication Instructions Recorded Confirmed aspirin 325 mg PO DAILY 11/17/18 05/25/20 ferrous gluconate 324 mg PO BID 11/17/18 05/25/20 atorvastatin 40 mg tablet 40 mg PO DAILY 12/11/19 05/25/20 Previous Rx's Medication Instructions Recorded atenolol 25 mg tablet 25 mg PO DAILY #30 tab 04/07/18 meclizine 25 mg PO BID-TID PRN #20 tab 11/17/18 benzonatate 100 mg capsule 100 mg PO BID PRN #30 cap 12/11/19 ondansetron 4 mg disintegrating 4 mg PO Q6H PRN #10 tab 05/25/20 tablet ciprofloxacin HCl 500 mg PO BID #14 tab 06/24/20 metronidazole 500 mg PO TID #21 tab 06/24/20 fluconazole 150 mg tablet 150 mg PO ONCE #1 tab 07/12/20 Allergies Allergy/AdvReac Type Severity Reaction Status Date / Time hydrocodone Allergy Verified 07/31/20 16:04 Review of Systems <TAM Bergeron - Last Filed: 07/31/20 17:20> Review of Systems Narrative: GENERAL: Denies chills, fatigue, malaise, fever, sweats. HEENT: Denies sinus pain, ear pain, sore throat, difficulty swallowing, dizziness. RESPIRATORY: Denies dyspnea, cough, wheezing, hemoptysis, sputum. CARDIOVASCULAR: Denies chest pain, palpitations, orthopnea, edema, GASTROINTESTINAL: Denies nausea, vomiting, abdominal pain, diarrhea, constipation, melena. : Denies dysuria, frequency, incontinence, hematuria, urinary retention. MUSCULOSKELETAL: See HPI SKIN: See HPI NEUROLOGIC: Denies weakness, headache, numbness, change in speech, confusion, seizures, incoordination. PSYCHIATRIC: No concerning psychosocial issues. 12 point review of systems is negative except for those stated above Patient History <TAM Bergeron - Last Filed: 07/31/20 17:20> Medical History Coronary artery disease (Acute) TIA (transient ischemic attack) (Acute) URI (upper respiratory infection) (Acute) Vaginal irritation (Acute) Surgical History H/O total knee replacement (Acute) Social History Smoking Status: Never smoker Smoking Status: Never smoker alcohol intake frequency: 0-2 drinks per day Substance Use Type: does not use Exam <TAM Bergeron - Last Filed: 07/31/20 17:20> Narrative Exam Narrative: GENERAL: This is a well-nourished, well-developed patient, in no acute distress HEAD: Atraumatic. Normocephalic. No temporal or scalp tenderness. EYES: Pupils equal round and reactive. Extraocular motions intact. No scleral icterus. No injection or drainage. ENT: Nose without bleeding, purulent drainage or septal hematoma. Wearing a mask. Airway patent. NECK: Trachea midline. No JVD or lymphadenopathy. Supple, nontender, no meningeal signs. CARDIOVASCULAR: Regular rate and rhythm RESPIRATORY: Clear to auscultation. Breath sounds equal bilaterally. No wheezes, rales, or rhonchi. No cough. No increased respiratory effort. No accessory muscle use. GASTROINTESTINAL: Abdomen soft, non-tender, nondistended. No hepato-splenomegaly, or palpable masses. No guarding. EXTREMITIES: Slight pain to palpation on medial aspect of left malleolus and medial aspect of left lower leg. Positive pedal pulses bilaterally. No palpable edema bilaterally. Moving both legs and feet equally. Cap refill less than 2 seconds all toes. NEURO: AOx3. stable gait. SKIN: No rash or erythema on visible skin Initial Vital Signs Initial Vital Signs: Vital Signs Temperature 97.6 F 07/31/20 16:02 Pulse Rate 78 07/31/20 16:02 Respiratory Rate 12 07/31/20 16:02 Blood Pressure 134/73 07/31/20 16:02 Pulse Oximetry 97 07/31/20 16:02 <Kayy Vanegas DO - Last Filed: 08/05/20 07:49> Initial Vital Signs Initial Vital Signs: Vital Signs Temperature 97.6 F 07/31/20 16:02 Pulse Rate 78 07/31/20 16:02 Respiratory Rate 12 07/31/20 16:02 Blood Pressure 134/73 07/31/20 16:02 Pulse Oximetry 97 07/31/20 16:02 Scores <TAM Bergeron - Last Filed: 07/31/20 17:20> GCS Ovi coma scale eye opening: Spontaneous Ovi coma scale verbal response: [place] coma scale motor response: Obey commands Ovi coma scale total score: 15 Course <TAM Bergeron - Last Filed: 07/31/20 17:20> Orders Ordered: ED Orders 07/31/20 16:06 perip venous low extrem lt Stat Vital Signs Vital signs: Vital Signs - 8 hr 07/31/20 16:02 Temperature 97.6 F Pulse Rate 78 Respiratory Rate 12 Blood Pressure 134/73 Pulse Oximetry 97 <Kayy Vanegas DO - Last Filed: 08/05/20 07:49> Orders Ordered: ED Orders 07/31/20 16:06 US periph venous low extrem lt Stat Vital Signs Vital signs: Vital Signs - 8 hr 07/31/20 16:02 Temperature 97.6 F Pulse Rate 78 Respiratory Rate 12 Blood Pressure 134/73 Pulse Oximetry 97 MDM - Extremity Injury (Lower) <TAM Bergeron - Last Filed: 07/31/20 17:20> Imaging Data US - DVT: Radiologist's Impression: [facility] [address] [place] [id number] Ultrasound Report Signed Patient: Head,María PMR#: [id number] : 7Acct:[id number] Age/Sex: 75 / FDate of Service: 07/31/20 Loc: ED Accession Number: [id number] Procedure: US periph venous low extrem lt Ordering Provider: Chantelle Salazar PROCEDURE: US PERIPH VENOUS LOW EXTREM LT INDICATIONS: SWOLLEN LOWER LEG. RECENT FLIGHT TECHNIQUE: Real-time imaging, as well as color and pulse Doppler interrogation, were performed of the lower extremity deep veins from the inguinal ligament to the popliteal fossa. COMPARISON: None. FINDINGS: The common femoral, femoral and popliteal veins are normally compressible, and free of intraluminal thrombus. Color and pulse Doppler demonstrate normal phasic intraluminal flow. There is normal augmentation response to distal compression maneuver. IMPRESSION: Negative for deep venous thrombosis. Dictated by: Fran Frausto M.D. on 07/31/2020 at 15:44 Approved by: Fran Frausto M.D. on 07/31/2020 at 15:44 [facility] Narrative Medical decision making narrative: The patient is a 75-year-old female who presents with a chief complaint of left lower leg pain and concern for DVT. Given her recent travel to [facility], ultrasound was taken to rule out DVT. This came back negative. I offered further modalities including medications for pain she declined. I discussed at length rest ice compression elevation, jxhk-yjy-mbhgtqk pain medications as needed and able as well as follow-up with primary care provider. Could be musculoskeletal pain related to her recent initiation of exercise with a computer trainer. Otherwise patient has no signs of any systemic illness, is alert interactive, well and nontoxic appearing. Discussed going back to the ER for acute concerns such as chest pain, shortness of breath, concern of heart attack stroke DVT etcetera. Patient has been have no questions or concerns upon discharge and state understanding of return precautions as well as follow-up care. Discharge Plan Departure Patient Disposition: Home Clinical Impression: Foot pain, left, Left leg pain Discharge Date/Time: 07/31/20 17:32 Instructions: How To Perform RICE (Rest, Ice, Compress, Elevate), DI for Foot Pain, DI for Leg Pain Activity Restrictions/Additional Instructions: Thank you for trusting us with your care today. As discussed, your ultrasound shows no evidence of a deep vein thrombosis or clot in her leg. Please use daix-egc-ovkkase medications as needed and able as well as rest ice compression elevation over the next few days. Please follow-up with primary care provider in the next few days. Please come back to the emergency department for any acute concerns such as concern of DVT, heart attack stroke etcetera. Prescriptions: No Action atorvastatin 40 mg tablet 40 mg PO DAILY RF: 0 benzonatate [Tessalon Perles] 100 mg capsule 100 mg PO BID PRN (Reason: cough) Qty: 30 RF: 0 atenolol 25 mg tablet 25 mg PO DAILY Qty: 30 RF: 0 ondansetron 4 mg tablet,disintegrating 4 mg PO Q6H PRN (Reason: nausea and vomiting) Qty: 10 RF: 0 fluconazole [Diflucan] 150 mg tablet 150 mg PO ONCE Qty: 1 RF: 0 ciprofloxacin HCl 500 mg tablet 500 mg PO BID Qty: 14 RF: 0 metronidazole 500 mg tablet 500 mg PO TID Qty: 21 RF: 0 meclizine 25 mg tablet 25 mg PO BID-TID PRN (Reason: motion sickness) Qty: 20 RF: 0 aspirin 325 mg tablet 325 mg PO DAILY RF: 0 ferrous gluconate 324 mg (38 mg iron) tablet 324 mg PO BID RF: 0 Referrals: Bashir Villa MD [Primary Care Provider] - <Kayy Vanegas DO - Last Filed: 08/05/20 07:49> [facility] Nii Attestation: I was immediately available in the department for consultation. Documentation has been reviewed. I agree with assessment and plan.
== END 2020-07-31 17:32 | disposition home or self-care (01) ==
PROVIDERS: Emergency Provider Nurse Practitioner Family; PCP Internal Medicine
DX: M79.605 Pain in left leg (principal); M79.672 Pain in left foot
CPT/HCPCS: 93971; 99283

== ENCOUNTER → 2020-08-23 14:44 | Outpatient (CLI) | payer MEDICARE, SELFPAY ==
--- NOTE | 2020-08-23 | DI.MG.S_ITS ---
BILATERAL DIGITAL DIAGNOSTIC MAMMOGRAM 3D/2D SHORT-TERM FOLLOW-UP: 08/23/2020 CLINICAL: Patient returns for a 6 month follow up of the right breast, due for bilateral exam. Comparison is made to exams dated: 02/29/2020 mammogram, 09/15/2019 mammogram, 08/29/2019 mammogram - [facility], 08/27/2018 mammogram, 09/10/2017 mammogram, and 01/17/2016 mammogram - [facility]. The tissue of both breasts is heterogeneously dense. This may lower the sensitivity of mammography. There are stable grouped fine punctate calcifications in the right breast at 11 o'clock posterior depth. No other significant masses, calcifications, or other findings are seen in either breast. New benign calcifications in the left breast. IMPRESSION: PROBABLY BENIGN Stable grouped fine punctate calcifications in the right breast are probably benign. A follow-up mammogram in 6 months is recommended to demonstrate stability. Exam findings were conveyed to the patient. This exam was interpreted at Station ID: [id number]. NOTE: For mammograms, a report in lay terms will be sent to the patient. Approximately 15% of breast malignancies will not be visualized mammographically. In the management of a palpable breast mass, a negative mammogram must not discourage biopsy of a clinically suspicious lesion. Electronically Signed By: Andrea Anthony M.D. [facility]/:08/23/2020 15:35:15 letter sent: Followup Recommended ACR BI-RADS Category 3: Probably benign 3343F
== END ==
PROVIDERS: PCP Internal Medicine; Referring Provider Internal Medicine; Visit Provider Internal Medicine
DX: R92.8 Other abnormal and inconclusive findings on diagnostic imaging of breast (principal); R92.1 Mammographic calcification found on diagnostic imaging of breast
CPT/HCPCS: 77066; G0279

== ENCOUNTER → 2021-08-21 12:37 | Outpatient (CLI) | payer MEDICARE, SELFPAY ==
--- NOTE | 2021-08-21 | DI.MG.S_ITS ---
BILATERAL DIGITAL DIAGNOSTIC MAMMOGRAM 3D/2D SHORT-TERM FOLLOW-UP: 08/21/2021 CLINICAL: Short term follow up of the right breast, due for bilateral imaging. Comparison is made to exams dated: 08/23/2020 mammogram, 02/29/2020 mammogram, 09/15/2019 mammogram, and 08/29/2019 mammogram - [facility]. The tissue of both breasts is heterogeneously dense. This may lower the sensitivity of mammography. There are stable grouped fine calcifications in the right breast at 11 o'clock middle depth. No other significant masses, calcifications, or other findings are seen in either breast. IMPRESSION: BENIGN There is no mammographic evidence of malignancy. Right breast calcifications are benign given stability of greater than 2 years. A 1 year screening mammogram is recommended. This exam was interpreted at Station ID: [id number]. NOTE: For mammograms, a report in lay terms will be sent to the patient. Approximately 15% of breast malignancies will not be visualized mammographically. In the management of a palpable breast mass, a negative mammogram must not discourage biopsy of a clinically suspicious lesion. Electronically Signed By: Mk magana/:08/21/2021 13:24:50 letter sent: Normal Exam ACR BI-RADS Category 2: Benign Finding(s) 3342F
== END ==
PROVIDERS: PCP Internal Medicine; Referring Provider Internal Medicine; Visit Provider Internal Medicine
DX: R92.1 Mammographic calcification found on diagnostic imaging of breast (principal); R92.8 Other abnormal and inconclusive findings on diagnostic imaging of breast
CPT/HCPCS: 77066; G0279

== ENCOUNTER → 2021-08-30 07:28 | Outpatient (CLI) | payer MEDICARE, SELFPAY ==
[2021-08-30 08:22] LABS: Alanine Aminotransferase 18 IU/L (<35); Albumin 3.9 g/dL (3.5-5.0); Albumin Globulin Ratio 1.6 (1.0-2.8); Alkaline Phosphatase 51 U/L (38-126); Aspartate Aminotransferase 25 IU/L (14-36); BUN Creatinine Ratio 21.6 (6-22); Bilirubin Total 0.7 mg/dL (0.2-1.3); Blood Urea Nitrogen 19 mg/dL (7-17); Calcium 9.2 mg/dL (8.4-10.2); Carbon Dioxide 30 mmol/L (22-32); Chloride 104 mmol/L (98-107); Cholesterol 135 mg/dL (140-199); Estimated Glomerular Filt Rate > 60.0 mL/min (>60); Globulin 2.4 g/dL (1.7-4.1); Glucose 99 mg/dL (80-110); HDL Cholesterol 63 mg/dL (40-60); HEMOLYSIS < 15 (0-50); LDL Cholesterol Calculated 50 mg/dL (<100); Potassium 4.3 mmol/L (3.4-5.1); Sodium 140 mmol/L (137-145); Total Protein 6.3 g/dL (6.3-8.2); Triglycerides 111 mg/dL (35-150)
[2021-08-30 08:56] LABS: Thyroid Stimulating Hormone 2.18 uIU/mL (0.47-4.68)
[2021-08-30 09:16] LABS: Hemoglobin A1C% w Est Avg Glu 5.6 % (4.0-6.0)
== END ==
PROVIDERS: PCP Internal Medicine; Referring Provider Internal Medicine; Visit Provider Internal Medicine
DX: R73.03 Prediabetes (principal); I10 Essential (primary) hypertension; E78.5 Hyperlipidemia, unspecified
CPT/HCPCS: 36415; 80053; 80061; 83036; 84443

== ENCOUNTER 2022-06-24 15:27 | Observation (INO) | payer MEDICARE, SELFPAY ==
--- NOTE | 2022-06-24 09:51 | DI.MRI.S_ITS ---
PROCEDURE: MR HEAD/BRAIN WO CON INDICATIONS: sudden onset confusion TECHNIQUE: Non-contrast axial T1 spin echo, axial T2 fast spin echo, sagittal and axial FLAIR, coronal T2 fast spin echo, axial gradient echo, axial diffusion and ADC through the brain. COMPARISON: Located Within [facility], CT, CT STROKE, 06/24/2022, 15:59. Located Within [facility], CT, CT HEAD/BRAIN WO CON, 11/17/2018, 6:58. Located Within [facility], MR, MR HEAD/BRAIN WO CON, 11/17/2018, 10:27. FINDINGS: Image quality: Excellent. CSF spaces: Ventricles appear symmetric in size and shape. Basal cisterns are patent. No extra-axial fluid collections. Brain: No intracranial bleeds or mass effects. There is cerebral volume loss for age. There are periventricular and deep white matter chronic small vessel ischemic changes. Brainstem appears normal. Diffusion-weighted images show no acute ischemic insults. No chronic ischemic insults. Normal intravascular flow voids are present. Relatively prominent perivascular spaces are noted. Skull and face: Calvarial bone marrow is normal in signal. Orbits are normal. Note is made of bilateral lens replacements. Incidental note is made of hyperostosis frontalis. This is not considered to be pathologic in a woman of this age. Sinuses: Sinuses and mastoids are clear. IMPRESSION: No imaging explanation is found for this patient's presenting symptoms. No findings of acute or subacute infarction can be seen. Dictated by: Fran Frausto M.D. on 06/25/2022 at 8:58 Approved by: Fran Frausto M.D. on 06/25/2022 at 9:01
--- NOTE | 2022-06-24 15:37 | DI.CT.S_ITS ---
PROCEDURE: CT STROKE INDICATIONS: expressive aphasia resolved TECHNIQUE: Noncontrast 4.5 mm thick angled axial sections acquired from the foramen magnum to the vertex, with coronal reformats. For radiation dose reduction, the following was used: automated exposure control, adjustment of mA and/or kV according to patient size. COMPARISON: [facility], CT, CT HEAD/BRAIN WO CON, 11/17/2018, 6:58. FINDINGS: Image quality: Excellent. CSF spaces: Basal cisterns are patent. No extra-axial fluid collections. The ventricles are symmetric in size and shape. Brain: No intracranial bleeds or masses. There is cerebral volume loss for age, with resultant ventricular and sulcal prominence. There are periventricular and deep white matter chronic small vessel ischemic changes. There is intracranial internal carotid artery atherosclerosis. Skull and face: Calvarium and visualized facial bones appear intact, without suspicious lesions. Sinuses: Visualized sinuses and mastoids are clear. IMPRESSION: 1. CT head without acute intracranial abnormalities or acute calvarial fractures. 2. Age-related senescent changes and sequela of chronic small vessel ischemic disease. Findings were discussed with Dr. Angeles at 1624 hrs. This study fulfills neurological imaging criteria for inclusion or exclusion of acute stroke therapies based on available published neurological guidelines. Dictated by: Alexandru Barreto M.D. on 06/24/2022 at 16:21 Approved by: Alexandru Barreto M.D. on 06/24/2022 at 16:25
--- NOTE | 2022-06-24 15:37 | DI.CT.S_ITS ---
PROCEDURE: CT ANGIO HEAD AND NECK INDICATIONS: expressive aphasia resolved TECHNIQUE: After the administration of intravenous contrast, 1 mm thick sections acquired from the aortic arch through the [place] of [place]. Post-contrast 4.5 mm thick sections then re-acquired from the foramen magnum to the vertex. 3-dimensional qfmmrfu-uvrckyakc-wbrjcukqib (MIP) and/or volume rendering reformats were acquired of the central intracranial vasculature and neck separately. For radiation dose reduction, the following was used: automated exposure control, adjustment of mA and/or kV according to patient size. COMPARISON: [facility], CT, CT STROKE, 06/24/2022, 15:59. FINDINGS: Image quality: Excellent. BRAIN: CSF spaces: Ventricles are normal in size and shape. Basal cisterns are patent. No extra-axial fluid collections. Brain: No midline shift. No acute intracranial hemorrhage or mass effect. Scattered hypodensities are seen in the subcortical and periventricular white matter bilaterally. There is mild cerebral and cerebellar parenchymal volume loss. Skull and face: Calvarium and facial bones appear intact, without suspicious lesions. Orbits appear normal. Sinuses: Sinuses and mastoids are clear. HEAD CT ANGIOGRAPHY: Anterior circulation: Intracranial internal carotid demonstrate mild atherosclerotic calcifications without hemodynamically significant stenosis. The flow within the paired anterior cerebral arteries is normal and symmetric. The flow within the middle cerebral arteries is normal and symmetric. The anterior communicating artery is seen. No aneurysms are seen. Posterior circulation: Mild focal calcified atherosclerosis at the proximal intracranial left vertebral artery without significant stenosis. Visualized portions of the vertebral arteries demonstrate normal caliber, and join to form a normal appearing basilar artery. Flow within the posterior cerebral arteries is normal and symmetric. No aneurysms are seen. NECK CT ANGIOGRAPHY: Carotid system: The great vessels demonstrate a conventional anatomy as they arise from the aortic arch. The origins of the common carotid arteries appear patent. The common carotid arteries demonstrate normal caliber and courses. The bifurcation regions are both widely patent. The internal carotid arteries demonstrate normal calibers and courses. Posterior circulation: The origins of the vertebral arteries both appear widely patent. The more superior extracranial portions of both vertebral arteries also demonstrate normal courses and calibers. They join to form a normal appearing basilar artery. Soft tissues: Visualized neck soft tissues demonstrate no suspicious abnormalities. Bones: No suspicious bony lesions. Mild multilevel degenerative changes in the spine. IMPRESSION: 1. No acute intracranial abnormality. 2. No hemodynamically significant arterial stenosis or large vessel occlusion within the head or neck. Any quantitative measurements of stenosis were performed using NASCET criteria. Dictated by: Reji Mason M.D. on 06/24/2022 at 15:28 Approved by: Reji Mason M.D. on 06/24/2022 at 15:39
[2022-06-24 15:53] VITALS: BP 126/75; PULSE 65; RESP 20; TEMP 36.8; O2SAT 98
[2022-06-24 16:12] LABS: Prothrombin Time 11.5 SECONDS (10.1-12.7)
[2022-06-24 16:14] LABS: PTT Partial Thromboplastin Tim 29 SECONDS (26-36)
[2022-06-24 16:15] LABS: BUN Creatinine Ratio 22.2 (6-22); Blood Urea Nitrogen 20 mg/dL (7-17); Calcium 9.2 mg/dL (8.4-10.2); Carbon Dioxide 26 mmol/L (22-32); Chloride 102 mmol/L (98-107); Creatine Kinase 116 U/L (30-135); Estimated Glomerular Filt Rate > 60 mL/min (>60); Glucose 114 mg/dL (80-110); Potassium 4.4 mmol/L (3.4-5.1); Sodium 136 mmol/L (137-145)
[2022-06-24 16:26] LABS: Troponin I < 0.012 ng/mL (0.01-0.034)
[2022-06-24 16:29] LABS: CKMB % Relative Index 0.7 % (1.5-5.0); Creatine Kinase MB 0.82 ng/mL (<2.37); HEMOLYSIS 24 (0-50)
--- NOTE | 2022-06-24 16:49 | ED_ITS ---
HPI - Neuro Symptoms/Deficit General Chief Complaint: Neuro Symptoms/Deficit Stated Complaint: HX of TIA, just had another episode Time Seen by Provider: 06/24/22 15:37 Source: patient and family Mode of arrival: Family Vehicle Limitations: no limitations History of Present Illness HPI Narrative: This is a 76-year-old female patient has a history of prior TIAs, [place] in 2001 with angioplasty, hypertension, dyslipidemia. Patient states that her last TIA was approximately 10 years ago and she was worked up at [facility]. Patient states she had a 40 minute episode that started about 2:45 p.m. today of squiggly vision, when she tried to read CC written sentences she could not really understand them and she and her family noted expressive aphasia. Patient states she is had a mild headache since, no persistent vision changes, no chest pain, no shortness of breath, no nausea or vomiting, no numbness, tingling or weakness appreciated. She is chronic issues with constipation and a rectocele, she denies any acute urinary changes. Patient states she is on an aspirin 81 mg daily but took 324 mg aspirin total today. Patient states she is had a right knee surgery and broke both of her wrists and had repairs, no allergies to drugs. No tobacco, occasional alcohol, no illicit. She is had upper EEG and colonoscopy in the past several years and found to have a hiatal hernia, Schatzki rings and polyps in her stomach as well as hemorrhoids. Patient states her primary care is through [facility] and is Dr. David Lynn. On Anticoagulants: No Related Data Home Medications Medication Instructions Recorded Confirmed aspirin 325 mg tablet 325 mg PO DAILY 11/17/18 01/09/21 ferrous gluconate 324 mg (38 mg 324 mg PO BID 11/17/18 01/09/21 iron) tablet atorvastatin 40 mg tablet 40 mg PO DAILY 12/11/19 01/09/21 Previous Rx's Medication Instructions Recorded atenolol 25 mg tablet 25 mg PO DAILY #30 tabs 04/07/18 meclizine 25 mg tablet 25 mg PO BID-TID PRN motion 11/17/18 sickness #20 tabs benzonatate 100 mg capsule 100 mg PO BID PRN cough #30 caps 12/11/19 (Shonna Villareal) ondansetron 4 mg disintegrating 4 mg PO Q6H PRN nausea and 05/25/20 tablet vomiting #10 tabs ciprofloxacin HCl 500 mg tablet 500 mg PO BID #14 tabs 06/24/20 metronidazole 500 mg tablet 500 mg PO TID #21 tabs 06/24/20 fluconazole 150 mg tablet 150 mg PO ONCE #1 tab 07/12/20 (Diflucan) Allergies Allergy/AdvReac Type Severity Reaction Status Date / Time hydrocodone Allergy Verified 01/09/21 18:23 Review of Systems Review of Systems ROS Unobtainable: All systems reviewed & are unremarkable except as noted in HPI and below Hematologic/Lymphatic On Anticoagulants: No Patient History Medical History Coronary artery disease TIA (transient ischemic attack) URI (upper respiratory infection) Vaginal irritation Surgical History H/O total knee replacement Social History Smoking Status: Never smoker Smoking Status: Never smoker alcohol intake frequency: 0-2 drinks per day Substance Use Type: does not use Exam Narrative Exam Narrative: GEN: well nourished, well appearing female, alert and oriented x 3, patient appears to be in mild distress. HEENT: Atraumatic, pupils are equal round reactive to light, extraocular movements are intact, nares are clear. Throat is clear without any exudates, erythema, tonsillar enlargement or uvular deviation, no facial droop. HEART: Regular rate and rhythm without murmur, clicks, rubs. Pulses are equal in upper and lower extremities LUNGS:Lungs clear to auscultation, no wheezes, rales, crackles, chest moves symmetrically ABD:bowel sounds normal, soft, non-tender, no guarding, rebound, rigidity, no masses noted, no hepatosplenomegaly :No CVA tenderness MSCL: Non-tender, no muscle atrophy, muscles strength 5/5 upper and lower extremities, full range of motion, normal gait NEURO:CN 2-12 intact, sensation normal, reflexes 2/4 upper and lower extremities. finger nose finger test normal, heel hernandez test normal, no dysarthria, normal speech. SKIN: No rash, erythema or other skin changes Initial Vital Signs Initial Vital Signs: Vital Signs Temperature 98.3 F 06/24/22 15:53 Pulse Rate 65 06/24/22 15:53 Respiratory Rate 20 06/24/22 15:53 Blood Pressure 126/75 06/24/22 15:53 Pulse Oximetry 98 06/24/22 15:53 Oxygen Delivery Method 06/24/22 15:53 Scores NIH Stroke Scale Level of Conciousness: Alert, keenly responsive Ask month/age: Answers both questions correctly. Open/close eyes, close hand: Performs both tasks correctly Best gaze horizontal: Normal Visual dunlap: No visual loss Facial palsy: Normal symetrical movement Left arm drift: No drift for full 10 sec Right arm drift: No drift for full 10 sec Left leg drift: No drift for full 5 sec Right leg drift: No drift for full 5 sec Limb ataxia: Absent Sensory on face/arms/legs: Normal, no sensory loss Best language: No aphasia, normal Dysarthria: Normal Extinction or inattention: No abnormality Total NIH Stroke scale score: 0 Course Orders Ordered: ED Orders 06/24/22 15:[address] angio head and neck Stat EKG-12 Lead Stat 06/24/22 15:40 A1C [Hemoglobin A1C% w Est Avg Glu] Urgent Basic Metabolic Panel Stat Lipid Panel Urgent Magnesium Urgent Partial Thromboplastin Time Stat Prothrombin Time INR Stat TSH w/ Reflex to FT4 Urgent Troponin & CK Cardiac Panel Stat 06/24/22 16:30 COVID19 -Nasal RAPID/Pre-Proc Stat Urine Drug Screen, Rapid Stat 06/24/22 16:41 Complete Blood Count AUTO DIFF Stat 06/24/22 18:22 EC echo doppler complete Urgent 06/25/22 05:00 BMP [Basic Metabolic Panel] DAILY CBC Auto Diff [Complete Blood Count AUTO DIFF] DAILY 06/26/22 05:00 BMP [Basic Metabolic Panel] DAILY CBC Auto Diff [Complete Blood Count AUTO DIFF] DAILY 06/27/22 05:00 BMP [Basic Metabolic Panel] DAILY CBC Auto Diff [Complete Blood Count AUTO DIFF] DAILY Acetaminophen (Acetaminophen 325 Mg Tablet) 650 mg PO Q6HR PRN PRN Reason: Fever Aspirin (Aspirin Ec 81 Mg Tablet) 81 mg PO DAILY JESUS Atorvastatin Calcium (Atorvastatin 20 Mg Tablet) 40 mg PO BEDTIME JESUS Sodium Chloride (Normal Saline 0.9%) 1,000 mls @ 150 mls/hr IV CONT JESUS Last Admin: 06/24/22 17:59 Dose: 150 mls/hr Documented By: ALPHONSO Labetalol HCl (Labetalol 20 Mg/4 Ml Syringe) 5 mg IV Q4HR PRN PRN Reason: if SBP >220 or DBP >110 Vital Signs Vital signs: Vital Signs - 8 hr 06/24/22 15:53 06/24/22 18:00 Temperature 98.3 F 98.3 F Pulse Rate 65 68 Respiratory Rate 20 18 Blood Pressure 126/75 126/58 L Pulse Oximetry 98 99 Oxygen Delivery Method Room Air Room Air MDM - Neuro Symptoms/Deficit Lab Data Result diagrams: 06/24/22 16:41 06/24/22 15:40 Labs: Lab Results 06/24/22 06/24/22 06/24/22 Range/Units 15:40 15:40 15:40 WBC Cancelled RBC Cancelled Hgb Cancelled Hct Cancelled MCV Cancelled MCH Cancelled MCHC Cancelled RDW Cancelled Plt Count Cancelled Neut % (Auto) Cancelled Lymph % (Auto) Cancelled [place] % (Auto) Cancelled Eos % (Auto) Cancelled Baso % (Auto) Cancelled Neut # (Auto) Cancelled Lymph # (Auto) Cancelled [place] # (Auto) Cancelled Eos # (Auto) Cancelled Baso # (Auto) Cancelled PT 11.5 (10.1-12.7) SECONDS INR 1.0 (0.9-1.3) APTT 29 (26-36) SECONDS Sodium 136 L (137-145) mmol/L Potassium 4.4 (3.4-5.1) mmol/L Chloride 102 (98-107) mmol/L Carbon Dioxide 26 (22-32) mmol/L BUN 20 H (7-17) mg/dL Creatinine 0.90 (0.52-1.04) mg/dL Estimated GFR > 60 (>60) mL/min BUN/Creatinine Ratio 22.2 H (6-22) Glucose 114 H (80-110) mg/dL Hemoglobin A1c (4.0-6.0) % Calcium 9.2 (8.4-10.2) mg/dL Magnesium (1.6-2.3) mg/dL Total Creatine Kinase 116 (30-135) U/L CK-MB (CK-2) 0.82 (<2.37) ng/mL CK-MB (CK-2) Rel Index 0.7 L (1.5-5.0) % Troponin I < 0.012 (0.01-0.034) ng/mL Triglycerides (35-150) mg/dL Cholesterol (140-199) mg/dL LDL Cholesterol, Calc (<100) mg/dL HDL Cholesterol (40-60) mg/dL U Opiates 300ng/mL cut (Negative) Ur Oxycodone Screen (Negative) Urine Methadone Screen (Negative) Ur Barbiturates Screen (Negative) U Tricyclic Antidepress (Negative) Ur Phencyclidine Scrn (Negative) Ur Amphetamines Screen (Negative) U Methamphetamines Scrn (Negative) Ur MDMA Scrn (Ecstasy) (Negative) U Benzodiazepines Scrn (Negative) Urine Cocaine Screen (Negative) U Marijuana (THC) Screen (Negative) SARS-CoV-2 (PCR) (Negative) 06/24/22 06/24/22 06/24/22 Range/Units 15:40 15:40 15:40 WBC RBC Hgb Hct MCV MCH MCHC RDW Plt Count Neut % (Auto) Lymph % (Auto) [place] % (Auto) Eos % (Auto) Baso % (Auto) Neut # (Auto) Lymph # (Auto) [place] # (Auto) Eos # (Auto) Baso # (Auto) PT (10.1-12.7) SECONDS INR (0.9-1.3) APTT (26-36) SECONDS Sodium (137-145) mmol/L Potassium (3.4-5.1) mmol/L Chloride (98-107) mmol/L Carbon Dioxide (22-32) mmol/L BUN (7-17) mg/dL Creatinine (0.52-1.04) mg/dL Estimated GFR (>60) mL/min BUN/Creatinine Ratio (6-22) Glucose (80-110) mg/dL Hemoglobin A1c 5.8 (4.0-6.0) % Calcium (8.4-10.2) mg/dL Magnesium 2.0 (1.6-2.3) mg/dL Total Creatine Kinase (30-135) U/L CK-MB (CK-2) (<2.37) ng/mL CK-MB (CK-2) Rel Index (1.5-5.0) % Troponin I (0.01-0.034) ng/mL Triglycerides 169 H (35-150) mg/dL Cholesterol 164 (140-199) mg/dL LDL Cholesterol, Calc 64 (<100) mg/dL HDL Cholesterol 66 H (40-60) mg/dL U Opiates 300ng/mL cut (Negative) Ur Oxycodone Screen (Negative) Urine Methadone Screen (Negative) Ur Barbiturates Screen (Negative) U Tricyclic Antidepress (Negative) Ur Phencyclidine Scrn (Negative) Ur Amphetamines Screen (Negative) U Methamphetamines Scrn (Negative) Ur MDMA Scrn (Ecstasy) (Negative) U Benzodiazepines Scrn (Negative) Urine Cocaine Screen (Negative) U Marijuana (THC) Screen (Negative) SARS-CoV-2 (PCR) (Negative) 06/24/22 06/24/22 06/24/22 Range/Units 16:30 16:30 16:41 WBC 5.9 RBC 4.40 Hgb 14.3 Hct 40.8 MCV 92.8 MCH 32.5 MCHC 35.1 RDW 12.3 Plt Count 193 Neut % (Auto) 63.9 Lymph % (Auto) 25.9 [place] % (Auto) 7.5 Eos % (Auto) 2.0 Baso % (Auto) 0.7 Neut # (Auto) 3800 Lymph # (Auto) 1500 [place] # (Auto) 400 Eos # (Auto) 100 Baso # (Auto) 0 PT (10.1-12.7) SECONDS INR (0.9-1.3) APTT (26-36) SECONDS Sodium (137-145) mmol/L Potassium (3.4-5.1) mmol/L Chloride (98-107) mmol/L Carbon Dioxide (22-32) mmol/L BUN (7-17) mg/dL Creatinine (0.52-1.04) mg/dL Estimated GFR (>60) mL/min BUN/Creatinine Ratio (6-22) Glucose (80-110) mg/dL Hemoglobin A1c (4.0-6.0) % Calcium (8.4-10.2) mg/dL Magnesium (1.6-2.3) mg/dL Total Creatine Kinase (30-135) U/L CK-MB (CK-2) (<2.37) ng/mL CK-MB (CK-2) Rel Index (1.5-5.0) % Troponin I (0.01-0.034) ng/mL Triglycerides (35-150) mg/dL Cholesterol (140-199) mg/dL LDL Cholesterol, Calc (<100) mg/dL HDL Cholesterol (40-60) mg/dL U Opiates 300ng/mL cut Negative (Negative) Ur Oxycodone Screen Negative (Negative) Urine Methadone Screen Negative (Negative) Ur Barbiturates Screen Negative (Negative) U Tricyclic Antidepress Negative (Negative) Ur Phencyclidine Scrn Negative (Negative) Ur Amphetamines Screen Negative (Negative) U Methamphetamines Scrn Negative (Negative) Ur MDMA Scrn (Ecstasy) Negative (Negative) U Benzodiazepines Scrn Negative (Negative) Urine Cocaine Screen Negative (Negative) U Marijuana (THC) Screen Negative (Negative) SARS-CoV-2 (PCR) Negative (Negative) Point of Care Testing Glucose POC 114 Urine Dip Bedside Urine Glucose Negative Bedside Urine Bilirubin - Negative Bedside Urine Ketone - Negative Urine Specific [place] 1.010 Bedside Urine Occult Blood - Negative Bedside Urine pH 6.0 Bedside Urine Protein - Negative Bedside Urine Urobilinogen - Negative Bedside Urine Nitrite - Negative Bedside Urine Leukocytes - Negative Esterase Imaging Data CT scan - head: Radiologist's Impression: [address] [address] [address] Scan Report Signed Patient: María Flynn MR#: [id number] : 1945 Acct:[id number] Age/Sex: 76 / F Date of Service: 06/24/22 Loc: ED Accession Number: [id number] ?? Procedure: CT Stroke Ordering Provider: Chantelle Angeles D.O. PROCEDURE:? CT STROKE ? INDICATIONS:? expressive aphasia resolved ? TECHNIQUE:? Noncontrast 4.5 mm thick angled axial sections acquired from the foramen magnum to the vertex, with coronal reformats.? For radiation dose reduction, the following was used:? automated exposure control, adjustment of mA and/or kV according to patient size.? ? COMPARISON:? [facility], CT, CT HEAD/BRAIN WO CON, 11/17/2018, 6:58. ? FINDINGS:? Image quality:? Excellent.? ? CSF spaces:? Basal cisterns are patent.? No extra-axial fluid collections.? The ventricles are symmetric in size and shape.? ? Brain:? No intracranial bleeds or masses.? There is cerebral volume loss for age, with resultant ventricular and sulcal prominence.? There are periventricular and deep white matter chronic small vessel ischemic changes.? There is intracranial internal carotid artery atherosclerosis.? ? Skull and face:? Calvarium and visualized facial bones appear intact, without suspicious lesions.? ? Sinuses:? Visualized sinuses and mastoids are clear.? ? IMPRESSION:? 1. CT head without acute intracranial abnormalities or acute calvar ial fractures. ? 2. Age-related senescent changes and sequela of chronic small vessel ischemic disease. ? Findings were discussed with Dr. Angeles at 1624 hrs. ? ? This study fulfills neurological imaging criteria for inclusion or exclusion of acute stroke therapies based on available published neurological guidelines.? ? ? Dictated by: Alexandru Barreto M.D. on 06/24/2022 at 16:21 ? ? Approved by: Alexandru Barreto M.D. on 06/24/2022 at 16:25?? CTA - brain/neck: Radiologist's Impression: [address] [address] [address] Scan Report Signed Patient: María Flynn MR#: [id number] : 1945 Acct:[id number] Age/Sex: 76 / F Date of Service: 06/24/22 Loc: ED Accession Number: [id number] ?? Procedure: CT angio head and neck Ordering Provider: Chantelle Angeles D.O. PROCEDURE:? CT ANGIO HEAD AND NECK ? INDICATIONS:? expressive aphasia resolved ? TECHNIQUE:? After the administration of intravenous contrast, 1 mm thick sections acquired from the aortic arch through the [place] of [place].? Post-contrast 4.5 mm thick sections then re-acquired from the foramen magnum to the vertex.? 3-dimensional eorgqpw-jpiggajek-ahnswixpxb (MIP) and/or volume rendering reformats were acquired of the central intracranial vasculature and neck separately. For radiation dose reduction, the following was used:? automated exposure control, adjustment of mA and/or kV according to patient size.? ? COMPARISON:? [facility], CT, CT STROKE, 06/24/2022, 15:59. ? FINDINGS:? Image quality:? Excellent.? ? BRAIN:? CSF spaces:? Ventricles are normal in size and shape.? Basal cisterns are patent.? No extra-axial fluid collections.? ? Brain:? No midline shift.? No acute intracranial hemorrhage or mass effect.? Scattered hypodensities are seen in the subcortical and periventricular white matter bilaterally.? There is mild cerebral and cerebellar parenchymal volume loss. ? Skull and face:? Calvarium and facial bones appear intact, without suspicious lesions.? Orbits appear normal.? ? Sinuses:? Sinuses and mastoids are clear.? ? HEAD CT ANGIOGRAPHY:? Anterior circulation:? Intracranial internal carotid demonstrate mild a therosclerotic calcifications without hemodynamically significant stenosis.? The flow within the paired anterior cerebral arteries is normal and symmetric.? The flow within the middle cerebral arteries is normal and symmetric.? The anterior communicating artery is seen.? No aneurysms are seen.? ? Posterior circulation:? Mild focal calcified atherosclerosis at the proximal intracranial left vertebral artery without significant stenosis.? Visualized portions of the vertebral arteries demonstrate normal caliber, and join to form a normal appearing basilar artery.? Flow within the posterior cerebral arteries is normal and symmetric.? No aneurysms are seen.? ? NECK CT ANGIOGRAPHY:? Carotid system:? The great vessels demonstrate a conventional anatomy as they arise from the aortic arch.? The origins of the common carotid arteries appear patent.? The common carotid arteries demonstrate normal caliber and courses.? The bifurcation regions are both widely patent.? The internal carotid arteries demonstrate normal calibers and courses.? ? Posterior circulation:? The origins of the vertebral arteries both appear widely patent.? The more superior extracranial portions of both vertebral arteries also demonstrate normal courses and calibers.? They join to form a normal appearing basilar artery.? ? Soft tissues:? Visualized neck soft tissues demonstrate no suspicious abnormalities.? ? Bones:? No suspicious bony lesions.? Mild multilevel degenerative changes in the spine. ? ? IMPRESSION:? 1. No acute intracranial abnormality. 2. No hemodynamically significant arterial stenosis or large vessel occlusion within the head or neck.? ? Any quantitative measurements of stenosis were performed using NASCET criteria.? ? ? Dictated by: Reji Mason M.D. on 06/24/2022 at 15:28 ? ? Approved by: Reji Mason M.D. on 06/24/2022 at 15:39?? ECG Data Attestation: I personally reviewed and interpreted this ECG as follows: Interpretation: Sinus rhythm, rate of 65 RI 148 QRS 86 QTC of 453. No acute ST changes appreciated. MDM Narrative Medical decision making narrative: This is a 76-year-old female prior history of TIAs remotely, known coronary disease with angioplasty, she is on a baby aspirin but no other anticoagulants who had approximately 45 minutes of expressive aphasia, some vision change that resolved. Patient is not a tPA candidate her NIH is 0 symptoms have resolved, she was within the time frame. CT angiography does not show any occlusion and is not a code IR candidate. Patient is not particularly hypertensive no other lab, EKG or abnormalities that would explain her symptoms today. Discussed with Dr. Carson who accepts for observation. Discharge Plan Departure Patient Disposition: Admitted as Observation Clinical Impression: TIA (transient ischemic attack) Admit Date/Time: 06/24/22 18:58 Admit Provider: Abdulaziz Carson
[2022-06-24 17:07] LABS: COVID19 -Nasal RAPID Negative (Negative)
[2022-06-24 17:16] LABS: UR Morphine/Opiate cutoff 300 Negative (Negative); Ur Creatinine Normal (Normal); Ur Specific Gravity Normal (Normal); Urine Amphetamines Negative (Negative); Urine Barbiturates Negative (Negative); Urine Benzodiazepines Negative (Negative); Urine Cocaine Negative (Negative); Urine MDMA Negative (Negative); Urine Methadone Negative (Negative); Urine Methamphetamines Negative (Negative); Urine Oxycodone Negative (Negative); Urine Phencyclidine Negative (Negative); Urine Tetrahydrocannabinol Negative (Negative); Urine Tricyclic Antidepressant Negative (Negative); Urine pH Normal (Normal)
[2022-06-24 17:38] LABS: Add Manual Diff / Slide Review NO; Basophils Absolute Auto 0 /uL (0-100); Basophils Percent Auto 0.7 % (0-2); Eosinophils Absolute Auto 100 /uL (0-450); Hematocrit 40.8 % (36-46); Hemoglobin 14.3 g/dL (12.0-16.0); Lymphocytes Absolute Auto 1500 /uL (1100-4500); Lymphocytes Percent Auto 25.9 % (25-40); Mean Corpuscular HGB Conc 35.1 % (30-36); Mean Corpuscular Hemoglobin 32.5 PG (26-34); Mean Corpuscular Volume 92.8 fL (80-100); Monocytes Absolute Auto 400 /uL (0-900); Monocytes Percent Auto 7.5 % (3-14); Neutrophils Absolute Auto 3800 /uL (1500-7000); Neutrophils Percent Auto 63.9 % (50-75); Platelet Count 193 X10^3/uL (150-400); Red Cell Distribution Width 12.3 % (11.6-14.8); White Blood Cell Count 5.9 X10^3/uL (4.5-11.0)
[2022-06-24] MEDS: SODIUM CHLORIDE 0.9% 1,000 ML 150 ML IV (17:59)
[2022-06-24 18:00] VITALS: BP 126/58; PULSE 68; RESP 18; TEMP 36.8; O2SAT 99
--- NOTE | 2022-06-24 18:22 | DI.ECHO.S_ITS ---
[facility]---------+ [facility] +---------+ : : [address] : : : : [id number] : : : : Phone: [phone]+ Echocardiogram Report + + :Name: DARIA POLO Study Date: 06/25/2022 Height: 69 in : :[facility] ReadingLocation: Weight: 182 lb : : Gender: Female BSA: 2.0 m2 : :: 1945 Age: 76 yrs BP: 126/75 mmHg: :Reason For Study: TIA : :Ordering Physician: Bridgette, : :Chantelle Performed By: Will Jo : :Referring: Chantelle Angeles : + + Interpretation Summary The study quality was technically difficult. Normal left ventricle size with ejection fraction 50-55%. Mild hypokinesis of anterior wall and septum. Mild aortic valve sclerosis. Mild tricuspid regurgitation. Procedure: A two-dimensional transthoracic echocardiogram with color flow and Doppler was performed. The study quality was technically difficult. There is no prior echocardiogram noted for this patient. Left Ventricle: The left ventricle is normal in size and wall thickness. The ejection fraction is estimated to be 50-55%. There is anterior wall mild hypokinesis. There is septal wall mild hypokinesis. There are no other obvious focal wall motion abnormalities. Diastolic parameters suggest probable normal left ventricular diastolic function and normal filling pressures. Right Ventricle: The right ventricle is normal in size and function. Atria: Both atria are normal in size. The interatrial septum grossly appears intact with no obvious evidence for an atrial septal defect. Injection of contrast documented no interatrial shunt. Mitral Valve: The mitral valve is normal in structure and function. There is no mitral regurgitation noted. Aortic Valve: There is mild aortic valve sclerosis. No aortic regurgitation is present. Tricuspid Valve: The tricuspid valve is normal in structure and function. There is mild tricuspid regurgitation. The right ventricular systolic pressure is estimated to be at least 22 mmHg based on an estimated right atrial pressure of 3 mm Hg. Pulmonic Valve: The pulmonic valve is not well seen, but is grossly normal. There is a trace or physiologic amount of pulmonic regurgitation. Great Vessels: The aortic root is normal size. The dimensions of the ascending aorta are normal. The IVC is of normal diameter and collapses greater than 50% with a sniff. This suggests a low right atrial pressure of 3 mm Hg. Pericardium/ Pleura There is no pericardial effusion. There is no pleural effusion. MMode/2D Measurements & Calculations LVIDd: 5.4 cm LVOT diam: 2.0 cm LVIDs: 3.7 cm Ao root diam: 2.7 cm FS: 31.4 % asc Aorta Diam: 3.2 cm IVSd: 0.89 cm LVPWd: 0.74 cm LV watson. diameter/BSA (cm/m^2): 2.7 LV sys. diameter/BSA (cm/m^2): 1.9 LA A2 area: 13.8 cm2 RA long axis: 4.5 cm LA A4 area: 10.7 cm2 LA length (vol): 4.5 cm LA vol: 27.5 ml LA vol index: 13.9 ml/m2 TAPSE_phl: 2.2 cm Doppler Measurements & Calculations Ao V2 max: 116.0 cm/sec LVOT Max Kvng: 86.8 cm/sec Ao V2 mean: 75.9 cm/sec LV V1 max P.0 mmHg Ao max P.0 mmHg LV V1 VTI: 19.6 cm Ao mean P.0 mmHg RACHEL(I,D): 2.8 cm2 Ao V2 VTI: 22.3 cm RACHEL(V,D): 2.4 cm2 sev ratio: 0.88 RACHEL indexed to BSA (cm^2/m^2): 1.4 MV E max kvng: 81.8 cm/sec TR max kvng: 220.0 cm/sec MV A max kvng: 90.0 cm/sec TR max P.4 mmHg MV E/A: 0.91 Med Peak E' Kvng: 6.0 cm/sec E/E' med: 13.6 Lat Peak E' Kvng: 10.3 cm/sec E/E' lat: 7.9 E/e' average: 10.8 MV dec time: 0.24 sec SV(LVOT): 61.6 ml AV VR_phl: 0.75 RACHEL(VTI)/BSA_phl: 1.4 MV P1/2t-pr_phl: 69.0 msec Electronically signed by: Jayy Brown on Reading Physician:06/25/2022 01:32 PM
[2022-06-24 18:51] LABS: Cholesterol 164 mg/dL (140-199); HDL Cholesterol 66 mg/dL (40-60); LDL Cholesterol Calculated 64 mg/dL (<100); Triglycerides 169 mg/dL (35-150)
[2022-06-24 18:53] LABS: Hemoglobin A1C% w Est Avg Glu 5.8 % (4.0-6.0)
[2022-06-24 19:24] LABS: TSH w/ Reflex to FT4 2.48 uIU/mL (0.47-4.68)
[2022-06-24 19:27] VITALS: BMI 26.7
[2022-06-24 20:24] VITALS: BP 133/61; PULSE 68; RESP 18; TEMP 36.3; O2SAT 95
[2022-06-24] MEDS: ACETAMINOPHEN 325 MG TABLET 650 MG PO (21:44)
[2022-06-24] MEDS: ATORVASTATIN 20 MG TABLET 40 MG PO (21:44)
[2022-06-24] MEDS: atenoloL 50 MG TABLET 12.5 MG PO (22:37)
--- NOTE | 2022-06-25 02:08 | PM.HP.1 ---
History of Present Illness History of Present Illness Date Patient Seen: 06/24/22 Time Patient Seen: 18:21 Chief complaint: HX of TIA, just had another episode Narrative: María Flynn is a florencia is a 76-year-old female with a history of prior TIAs, [place] in 2001 with angioplasty, CAD, hypertension, dyslipidemia.? Patient states that her last TIA was approximately 10 years ago and she was worked up at [facility].? Patient states she had a 40 minute episode that started about 2:45 p.m. today of squiggly vision, when she tried to read written sentences she could not really understand them, in her head she knew what she wanted to say but was unable to verbally express her thoughts, she and her family noted expressive aphasia.? Patient states she is had a mild headache since, no persistent vision changes, no chest pain, no shortness of breath, upper respiratory symptoms, no nausea or vomiting, no numbness, tingling or weakness appreciated.? She is chronic issues with constipation and a rectocele, she denies any acute urinary changes.? Patient states she is on an aspirin 81 mg daily but took 324 mg aspirin total today.? No tobacco, occasional alcohol, no illicit.? She is had upper EEG and colonoscopy in the past several years and found to have a hiatal hernia, Schatzki rings and polyps in her stomach as well as hemorrhoids.? Patient states her primary care is through [facility] and is Dr. David Lynn. Patient's symptoms had resolved for the time she presented to the ED. Upon admit to the floor patient is completely asymptomatic although she does continue to have a mild headache. Patient denies is issues with balance, coordination, ambulation, swallowing, dexterity, recent illness injury falls or trauma. NIH:0 Vitals temp 98.3?, BP 126/58, HR 68, RR 18, O2 saturation 99% on room air. Patient's CBC CMP and liver panel are unremarkable. Patient's tox screen and COVID are negative. A1c 5.8, magnesium normal at 2.0, initial troponin negative. Patient's triglycerides 169, HDL 66, TSH is within normal limits. Patient's head neck CT is negative for any acute intracranial processes. Patient's CTA of head neck are negative for any acute processes. Patient's EKG sinus rhythm with a rate of [address] or T-wave changes. Patient admitted for altered mental status rule out TIA. Patient History Medical History Coronary artery disease TIA (transient ischemic attack) URI (upper respiratory infection) Vaginal irritation Surgical History H/O total knee replacement Family & Social History Family History (Updated 06/25/22 @ 02:17 by TAM Mai) Mother Congenital heart disease Family/Other Cancer Social History: household members spouse Prior Living Arrangements House Safety & Behavioral: Feels Safe in Current Yes Environment Been Physically Hurt or No Threatened By a Person Tobacco & Substance use: Smoking Status Never smoker alcohol intake frequency 0-2 drinks per day Substance Use Type does not use Meds Home Medications and Allergies Home Medications Medication Instructions Recorded Confirmed Type aspirin 325 mg tablet 81 mg PO DAILY 11/17/18 06/24/22 History atorvastatin 40 mg tablet 40 mg PO DAILY 12/11/19 06/24/22 History benzonatate 100 mg capsule 100 mg PO BID PRN cough #30 caps 12/11/19 06/24/22 Rx (Tessalon Mono) ciprofloxacin HCl 500 mg tablet 500 mg PO BID #14 tabs 06/24/20 06/24/22 Rx atenolol 25 mg tablet 12.5 mg PO DAILY 06/24/22 06/24/22 History Allergies Allergy/AdvReac Type Severity Reaction Status Date / Time hydrocodone Allergy Verified 01/09/21 18:23 Review of Systems Review of Systems Narrative: All 12 point systems reviewed with the patient and are negative except otherwise documented. Exam Vital Signs (past 8 hours): - 06/24/22 20:24 Temperature 97.4 F L Pulse Rate 68 Respiratory Rate 18 Blood Pressure 133/61 Pulse Oximetry 95 Oxygen Flow Rate 0 Oxygen Delivery Method Room Air Oxygen Flow Rate 0 Narrative Exam Narrative: General: Patient is a well-developed, well-nourished in no distress at this time. HEENT: Normocephalic, atraumatic, extraocular muscles intact, oral pharynx is clear and mucous membranes are moist. Neck is supple and symmetric, trachea is midline, no adenopathy, no thyroid enlargement, nontender, no masses palpated. Negative for JVD Chest: Normal AP diameter and contour without kyphoscoliosis, no nasal flaring, retractions, or tachypneic labored Lungs: Auscultation of all lung dunlap are clear slightly coarse in bilateral bases without adventitious sounds, wheezes, rhonchi, or rales. Cardio: S1 & S2 with regular rate and rhythm without murmur, rubs, or gallops, no carotid bruit, no cardiac pulsations present. Abdomen: Soft nontender, negative for organomegaly, or masses. Bowel sounds are present in all 4 quadrants without guarding or rebound, no CVA tenderness. Musculoskeletal: Muscle strength and tone are equal within normal limits, no deformity, crepitus, effusions, cyanosis, clubbing or edema present. Full range of motion intact radial and pedal pulses are normal. Skin: Warm dry and intact without rashes, ulcerations or petechiae. Neuro: Alert and orientated x3, strength is +5/5 in all extremities, sensation to touch intact, no gross deficits noted of cranial nerves. NIH:0 Psych: Patient has a well-kept appearance, appropriate affect, mental status attitude thought context and judgment are appropriate for age. Objective Labs Result Diagrams: 06/24/22 16:41 06/24/22 15:40 Labs: Laboratory Results - last 24 hr 06/24/22 06/24/22 06/24/22 15:40 15:40 15:40 WBC Cancelled RBC Cancelled Hgb Cancelled Hct Cancelled MCV Cancelled MCH Cancelled MCHC Cancelled RDW Cancelled Plt Count Cancelled Neut % (Auto) Cancelled Lymph % (Auto) Cancelled [place] % (Auto) Cancelled Eos % (Auto) Cancelled Baso % (Auto) Cancelled Neut # (Auto) Cancelled Lymph # (Auto) Cancelled [place] # (Auto) Cancelled Eos # (Auto) Cancelled Baso # (Auto) Cancelled PT 11.5 INR 1.0 APTT 29 Sodium 136 L Potassium 4.4 Chloride 102 Carbon Dioxide 26 BUN 20 H Creatinine 0.90 Estimated GFR > 60 BUN/Creatinine Ratio 22.2 H Glucose 114 H Hemoglobin A1c Calcium 9.2 Magnesium Total Creatine Kinase 116 CK-MB (CK-2) 0.82 CK-MB (CK-2) Rel Index 0.7 L Troponin I < 0.012 Triglycerides Cholesterol LDL Cholesterol, Calc HDL Cholesterol TSH U Opiates 300ng/mL cut Ur Oxycodone Screen Urine Methadone Screen Ur Barbiturates Screen U Tricyclic Antidepress Ur Phencyclidine Scrn Ur Amphetamines Screen U Methamphetamines Scrn Ur MDMA Scrn (Ecstasy) U Benzodiazepines Scrn Urine Cocaine Screen U Marijuana (THC) Screen SARS-CoV-2 (PCR) 06/24/22 06/24/22 06/24/22 15:40 15:40 15:40 WBC RBC Hgb Hct MCV MCH MCHC RDW Plt Count Neut % (Auto) Lymph % (Auto) [place] % (Auto) Eos % (Auto) Baso % (Auto) Neut # (Auto) Lymph # (Auto) [place] # (Auto) Eos # (Auto) Baso # (Auto) PT INR APTT Sodium Potassium Chloride Carbon Dioxide BUN Creatinine Estimated GFR BUN/Creatinine Ratio Glucose Hemoglobin A1c 5.8 Calcium Magnesium Total Creatine Kinase CK-MB (CK-2) CK-MB (CK-2) Rel Index Troponin I Triglycerides 169 H Cholesterol 164 LDL Cholesterol, Calc 64 HDL Cholesterol 66 H TSH 2.48 U Opiates 300ng/mL cut Ur Oxycodone Screen Urine Methadone Screen Ur Barbiturates Screen U Tricyclic Antidepress Ur Phencyclidine Scrn Ur Amphetamines Screen U Methamphetamines Scrn Ur MDMA Scrn (Ecstasy) U Benzodiazepines Scrn Urine Cocaine Screen U Marijuana (THC) Screen SARS-CoV-2 (PCR) 06/24/22 06/24/22 06/24/22 15:40 16:30 16:30 WBC RBC Hgb Hct MCV MCH MCHC RDW Plt Count Neut % (Auto) Lymph % (Auto) [place] % (Auto) Eos % (Auto) Baso % (Auto) Neut # (Auto) Lymph # (Auto) [place] # (Auto) Eos # (Auto) Baso # (Auto) PT INR APTT Sodium Potassium Chloride Carbon Dioxide BUN Creatinine Estimated GFR BUN/Creatinine Ratio Glucose Hemoglobin A1c Calcium Magnesium 2.0 Total Creatine Kinase CK-MB (CK-2) CK-MB (CK-2) Rel Index Troponin I Triglycerides Cholesterol LDL Cholesterol, Calc HDL Cholesterol TSH U Opiates 300ng/mL cut Negative Ur Oxycodone Screen Negative Urine Methadone Screen Negative Ur Barbiturates Screen Negative U Tricyclic Antidepress Negative Ur Phencyclidine Scrn Negative Ur Amphetamines Screen Negative U Methamphetamines Scrn Negative Ur MDMA Scrn (Ecstasy) Negative U Benzodiazepines Scrn Negative Urine Cocaine Screen Negative U Marijuana (THC) Screen Negative SARS-CoV-2 (PCR) Negative 06/24/22 16:41 WBC 5.9 RBC 4.40 Hgb 14.3 Hct 40.8 MCV 92.8 MCH 32.5 MCHC 35.1 RDW 12.3 Plt Count 193 Neut % (Auto) 63.9 Lymph % (Auto) 25.9 [place] % (Auto) 7.5 Eos % (Auto) 2.0 Baso % (Auto) 0.7 Neut # (Auto) 3800 Lymph # (Auto) 1500 [place] # (Auto) 400 Eos # (Auto) 100 Baso # (Auto) 0 PT INR APTT Sodium Potassium Chloride Carbon Dioxide BUN Creatinine Estimated GFR BUN/Creatinine Ratio Glucose Hemoglobin A1c Calcium Magnesium Total Creatine Kinase CK-MB (CK-2) CK-MB (CK-2) Rel Index Troponin I Triglycerides Cholesterol LDL Cholesterol, Calc HDL Cholesterol TSH U Opiates 300ng/mL cut Ur Oxycodone Screen Urine Methadone Screen Ur Barbiturates Screen U Tricyclic Antidepress Ur Phencyclidine Scrn Ur Amphetamines Screen U Methamphetamines Scrn Ur MDMA Scrn (Ecstasy) U Benzodiazepines Scrn Urine Cocaine Screen U Marijuana (THC) Screen SARS-CoV-2 (PCR) Assessment & Plan Assessment & Plan narrative: María Flynn is a florencia is a 76-year-old female with a history of prior TIAs, [place] in 2001 with angioplasty, CAD, hypertension, dyslipidemia, who is admitted for neurological deficit, rule out TIA. 1. Neurological deficit, expressive aphasia/changes in vision/confusion, acute, transient, in the setting of HX of TIA, present on admission-resolved -NIH:0 -MRI, echo ordered for tomorrow-ordered 2 mg p.o. Ativan to be given 30 minutes prior to patient's MRI due to her severe claustrophobia. -continue patient's Lipitor, ASA -trend troponin -patient's cholesterol panel triglycerides 169, HDL 66, rest within normal limits -TSH normal -NIH per shift. -BMP & CBC in am -Tele 2. Coronary artery disease secondary to hyperlipidemia, chronic, present on admission-controlled -continue Lipitor -triglycerides 169, total cholesterol 164, LDL 64, HDL 66 3. Essential hypertension, chronic, present on admission -well controlled BP 126/58 -continue atenolol Code status:DNI -Limited Surrogate decision maker: Spouse Joon RED PCR:Negative DVT/VTE prophylaxis:Lovenox & SCDs Disposition: Patient admitted for observation rule out TIA, expected length of stay less than 2 midnights. I have utilized all available immediate resources to obtain, update, or review the patient's current medications. I confirmed that the patient's advanced care plan is present, Code status is documented and/or surrogate decision maker is listed in the patient's medical record. Time Spent With Patient Critical Care time: I spent a total of [] minutes of critical care time on this patient's care today; this time is exclusive of procedural time. Quality VTE Deep Vein Thrombosis/Pulmonary Embolism Present on Admission: No
[2022-06-25 06:00] VITALS: BP 107/51; PULSE 62; RESP 16; TEMP 36.7; O2SAT 97
[2022-06-25 07:03] LABS: Add Manual Diff / Slide Review NO; Basophils Absolute Auto 0 /uL (0-100); Basophils Percent Auto 0.9 % (0-2); Eosinophils Absolute Auto 100 /uL (0-450); Hematocrit 40.1 % (36-46); Hemoglobin 13.8 g/dL (12.0-16.0); Lymphocytes Absolute Auto 1500 /uL (1100-4500); Lymphocytes Percent Auto 29.8 % (25-40); Mean Corpuscular HGB Conc 34.3 % (30-36); Mean Corpuscular Volume 93.2 fL (80-100); Monocytes Absolute Auto 400 /uL (0-900); Monocytes Percent Auto 8.9 % (3-14); Neutrophils Absolute Auto 2900 /uL (1500-7000); Neutrophils Percent Auto 57.4 % (50-75); Platelet Count 177 X10^3/uL (150-400); Red Blood Cell Count 4.31 X10^6/uL (4.0-5.2); Red Cell Distribution Width 12.6 % (11.6-14.8)
[2022-06-25 07:20] LABS: BUN Creatinine Ratio 20.5 (6-22); Blood Urea Nitrogen 18 mg/dL (7-17); Calcium 8.6 mg/dL (8.4-10.2); Carbon Dioxide 30 mmol/L (22-32); Chloride 103 mmol/L (98-107); Estimated Glomerular Filt Rate > 60 mL/min (>60); Glucose 101 mg/dL (80-110); HEMOLYSIS < 15 (0-50); Potassium 4.1 mmol/L (3.4-5.1); Sodium 140 mmol/L (137-145)
[2022-06-25] MEDS: LORazepam 1 MG TABLET 2 MG PO (07:34)
[2022-06-25 08:00] VITALS: BP 123/63; PULSE 62; RESP 17; TEMP 35.7; O2SAT 96
[2022-06-25 11:51] VITALS: BP 113/55; PULSE 67; RESP 17; TEMP 35.9; O2SAT 98
--- NOTE | 2022-06-25 14:33 | CM.DANOTE ---
Patient is a 76 yo female who was admitted on 06/24/22 for TIA r/o. Pt has [facility] for insurance and her PCP is Daisy and also Dr. David Lynn at [facility]. EMR was reviewed. Per MD, pt with hx of TIA and admitted for TIA r/o and to have MRI/Echo and possible stress test. Pt has no prior hx of admissions. No PT/OT needs at this time as pt is independent in room with ambulation. SW met briefly bedside with pt and explained role and she confirms that she lives in [place] with her spouse and is active and independent at baseline. Pt's DPOA is her spouse Joon and denied any hx of HH or SNF. Pt used to work at [email or web address] and has good medical knowledge and understanding and does not anticipate any needs pending test results and is hopeful for d/c to home when medically stable. Plan: SW to follow closely for test results and likely stress test today pending availability to confirm safe plan of home and any further identified needs. ANT Liao Discharge Planning/Care Management Advanced directive, confirm from FAMILY Start: 06/24/22 20:24 Freq: Q24H Status: Active Protocol: Document 06/24/22 20:24 SH (Rec: 06/24/22 22:15 [id number]) Advance Directive, confirm on record Time 20:30 Person contacted patient Copy received No CM Discharge Assessment Start: 06/25/22 14:31 Freq: Status: Active Protocol: Document 06/25/22 14:31 BF (Rec: 06/25/22 14:33 BF [id number]) Discharge Planning Assessment Assigned Medical Or Surgical Instrument Maker ANT Knight DPOA/Assigned Designee Name spouse Joon Contact Information [phone] Advance Directives? Yes Advance Directives on File No: Will bring in. History Provided By Patient,Medical Record Has Patient been admitted in last 30 No days? Prior Living Arrangements House Household Members spouse Type of transporation used prior to Drives own vehicle admit Independent with ADL's Yes Is patient alert and oriented? Yes Caregiver for Another No Barriers to Discharge No Discharge Plan Home Transportation Arrangement spouse likely to transport at d/c Referrals Initiated None needed Whiteboard Updated in Patient Room with Yes name and ext. # of Medical Or Surgical Instrument Maker Review Status In Process Please Provide Date Initial DC 06/25/22 Assessment Was Performed Next Review Type Continued Stay Review
[2022-06-25 16:00] VITALS: BP 116/59; PULSE 68; RESP 18; TEMP 35.8; O2SAT 97
--- NOTE | 2022-06-25 17:22 | PC.NURSE ---
Discharge Note Patient A&O, VSS, RA, no complaints of pain/discomfort. Patient/ agreeable to discharge plan, all questions/concerns addressed. PIV/TELE discontinued. Patient able to dress self and pack all belongings. Patient reminded to car pick up driver prescriptions at preferred pharmacy. Patient taken down via wheelchair to POV.
--- NOTE | 2022-06-25 17:27 | P.DS_ITS ---
History of Present Illness History of Present Illness Chief complaint: HX of TIA, just had another episode Narrative: 76-year-old female with a history of prior TIAs, [place] in 2002 with angioplasty, CAD, hypertension, dyslipidemia.? Patient states that her last TIA was approximately 10 years ago and she was worked up at [facility].? Patient states she had a 40 minute episode that started about 2:45 p.m. today of squiggly vision, when she tried to read written sentences she could not really understand them, in her head she knew what she wanted to say but was unable to verbally express her thoughts, she and her family noted expressive aphasia.? Patient states she is had a mild headache since, no persistent vision changes, no chest pain, no shortness of breath, upper respiratory symptoms, no nausea or vomiting, no numbness, tingling or weakness appreciated.? She is chronic issues with constipation and a rectocele, she denies any acute urinary changes.? Patient states she is on an aspirin 81 mg daily but took 324 mg aspirin total today.?? No tobacco, occasional alcohol, no illicit.? She is had upper EEG and colonoscopy in the past several years and found to have a hiatal hernia, Schatzki rings and polyps in her stomach as well as hemorrhoids.? Patient states her primary care is through [facility] and is Dr. David Lynn.? Patient's symptoms had resolved for the time she presented to the ED. Upon admit to the floor patient is completely asymptomatic although she does continue to have a mild headache.? Patient denies is issues with balance, coordination, ambulation, swallowing, dexterity, recent illness injury falls or trauma. NIH:0 Vitals temp 98.3?, BP 126/58, HR 68, RR 18, O2 saturation 99% on room air.? Patient's CBC CMP and liver panel are unremarkable.? Patient's tox screen and COVID are negative.? A1c 5.8, magnesium normal at 2.0, initial troponin negative.? Patient's triglycerides 169, HDL 66, TSH is within normal limits.? Patient's head neck CT is negative for any acute intracranial processes.? Patient's CTA of head neck are negative for any acute processes.? Patient's EKG sinus rhythm with a rate of [address] or T-wave changes.? Patient admitted for altered mental status rule out TIA. Discharge Providers Provider Date of admission: 06/24/22 18:58 Discharge Date: 06/25/22 Primary care physician: Bashir Villa Discharge provider: Lei Killian MD Summary Hospital Course Discharge Diagnosis: 1. Transient ischemic attack 2. History of CAD, status post PTCA Brain CTA: no stenosis or occlusion MRI: Scattered small-vessel disease, no old or new CVA ECHO: nl LVEF, mild hypokinesis anterior wall and septum, mild TR Hospital Course: Patient was admitted with approximately 40 minute episode of severe aphasia and altered vision. Symptoms did not recur in the hospital. MRI did not show evidence of acute stroke. Telemetry was normal. Echo showed mild hypokinesis anterior wall and septum probably old from prior cardiac event. I added clopidogrel to her daily low-dose aspirin. Recommended she take dual anti- platelet therapy for 2 months then drop the aspirin. Also advised she get Zio patch done to rule out occult atrial fibrillation. Status at Discharge Cognitive/behavioral status at discharge: oriented Functional status at discharge: independent ambulation Overall status at discharge: patient is back to baseline Exam Vital Signs (past 8 hours): - 06/25/22 11:51 06/25/22 16:00 Temperature 96.6 F L 96.4 F L Pulse Rate 67 68 Respiratory Rate 17 18 Blood Pressure 113/55 L 116/59 L Pulse Oximetry 98 97 Oxygen Flow Rate 0 0 Oxygen Delivery Method Room Air Oxygen Flow Rate 0 Narrative Exam Narrative: General: Alert and cooperative NAD Neurological: Speech and affect, moving all extremities well Objective Labs Result Diagrams: 06/25/22 06:30 06/25/22 06:30 Labs: Laboratory Results - last 24 hr 06/24/22 06/24/22 06/24/22 15:40 15:40 15:40 WBC RBC Hgb Hct MCV MCH MCHC RDW Plt Count Neut % (Auto) Lymph % (Auto) [place] % (Auto) Eos % (Auto) Baso % (Auto) Neut # (Auto) Lymph # (Auto) [place] # (Auto) Eos # (Auto) Baso # (Auto) Sodium Potassium Chloride Carbon Dioxide BUN Creatinine Estimated GFR BUN/Creatinine Ratio Glucose Hemoglobin A1c 5.8 Calcium Magnesium Triglycerides 169 H Cholesterol 164 LDL Cholesterol, Calc 64 HDL Cholesterol 66 H TSH 2.48 06/24/22 06/24/22 06/25/22 15:40 16:41 06:30 WBC 5.9 5.0 RBC 4.40 4.31 Hgb 14.3 13.8 Hct 40.8 40.1 MCV 92.8 93.2 MCH 32.5 32.0 MCHC 35.1 34.3 RDW 12.3 12.6 Plt Count 193 177 Neut % (Auto) 63.9 57.4 Lymph % (Auto) 25.9 29.8 [place] % (Auto) 7.5 8.9 Eos % (Auto) 2.0 3.0 Baso % (Auto) 0.7 0.9 Neut # (Auto) 3800 2900 Lymph # (Auto) 1500 1500 [place] # (Auto) 400 400 Eos # (Auto) 100 100 Baso # (Auto) 0 0 Sodium Potassium Chloride Carbon Dioxide BUN Creatinine Estimated GFR BUN/Creatinine Ratio Glucose Hemoglobin A1c Calcium Magnesium 2.0 Triglycerides Cholesterol LDL Cholesterol, Calc HDL Cholesterol TSH 06/25/22 06:30 WBC RBC Hgb Hct MCV MCH MCHC RDW Plt Count Neut % (Auto) Lymph % (Auto) [place] % (Auto) Eos % (Auto) Baso % (Auto) Neut # (Auto) Lymph # (Auto) [place] # (Auto) Eos # (Auto) Baso # (Auto) Sodium 140 Potassium 4.1 Chloride 103 Carbon Dioxide 30 BUN 18 H Creatinine 0.88 Estimated GFR > 60 BUN/Creatinine Ratio 20.5 Glucose 101 Hemoglobin A1c Calcium 8.6 Magnesium Triglycerides Cholesterol LDL Cholesterol, Calc HDL Cholesterol TSH [facility] Medical History Coronary artery disease TIA (transient ischemic attack) URI (upper respiratory infection) Vaginal irritation Surgical History H/O total knee replacement Family History (Updated 06/25/22 @ 02:17 by TAM Mai) Mother Congenital heart disease Family/Other Cancer Social History household members: spouse Smoking Status: Never smoker Discharge Plan Discharge Plan Patient Disposition: Home Provider Discharge Comment: You were evaluated for TIA. Brain MRI showed small vessel changes, not anything too concerning, no evidence of old or recent stroke. Brain angiogram did not show any plaque occlusion. ECHO showed mild hypokinesis of septum and anterior wall, mild tricuspid leakage (nothing concerning). Please have ZIO patch arranged as outpatient to rule out occult afib. I recommend taking clopidogrel and low dose aspirin daily for 2 months then dropping the aspirin. If you have afib then you will need different type of blood thinner. Discharge orders & Medications Prescriptions: New clopidogrel 75 mg tablet 75 mg PO DAILY Qty: 30 1RF Continued atorvastatin 40 mg tablet 40 mg PO DAILY atenolol 25 mg tablet 12.5 mg PO DAILY aspirin 81 mg 81 mg PO DAILY Follow up/Referrals: Bashir Villa MD [Primary Care Provider] - Diet/Activity/Treatments Diet: Regular Visit Report/Discharge Packet Instructions: Ambulatory Cardiac Monitoring, Clopidogrel Discharge Data Primary Care Provider: Bashir Villa Attending Provider: Abdulaziz Carson VTE Deep Vein Thrombosis/Pulmonary Embolism Present on Admission: No
== END 2022-06-25 17:20 | disposition home or self-care (01) ==
LOC: ED 18:13 → AC 18:59
PROVIDERS: Admitting Provider Student in an Organized Health Care Education/Training Program; Emergency Provider Emergency Medicine; PCP Internal Medicine; Referring Provider Emergency Medicine; Visit Provider Student in an Organized Health Care Education/Training Program
DX: H53.9 Unspecified visual disturbance (principal); G45.9 Transient cerebral ischemic attack, unspecified; R47.01 Aphasia; R29.700 NIHSS score 0; Z86.73 Personal history of transient ischemic attack (TIA), and cerebral infarction without residual deficits; I10 Essential (primary) hypertension; I25.10 Atherosclerotic heart disease of native coronary artery without angina pectoris; E78.5 Hyperlipidemia, unspecified; Z79.82 Long term (current) use of aspirin; Z20.822 Contact with and (suspected) exposure to COVID-19
CPT/HCPCS: 36415; 70450; 70496; 70498; 70551; 80048; 80061; 80305; 81003; 82550; 82553; 82962; 83036; 83735; 84443; 84484; 85025; 85610; 85730; 87635; 93005; 93306; 99284; C9803; G0378; Q9967

== ENCOUNTER → 2022-09-17 13:07 | Outpatient (CLI) | payer MEDICARE, SELFPAY ==
--- NOTE | 2022-09-17 | DI.MG.S_ITS ---
BILATERAL DIGITAL SCREENING MAMMOGRAM 3D/2D WITH CAD: 09/17/2022 CLINICAL: Routine screening. Family history of breast cancer. Comparison is made to exams dated: 08/23/2020 mammogram, 08/21/2021 mammogram, 08/29/2019 mammogram - [facility], and 08/27/2018 mammogram - [facility]. Both breasts are heterogeneously dense, which may obscure small masses (category c / 51-75% glandular tissue). Current study was also evaluated with a Computer Aided Detection (CAD) system. There are benign calcifications in the left breast. No significant masses, calcifications, or other findings are seen in either breast. There has been no significant interval change. IMPRESSION: BENIGN There is no mammographic evidence of malignancy. A 1 year screening mammogram is recommended. Based on the Tyrer Cuzick model (a risk assessment model) the patient's lifetime risk is 5.8% and her 10 year risk is 5.8%. According to the ACR, ACS, and NCCN guidelines, an annual breast MRI exam along with mammogram is recommended if the patient's lifetime risk is 20% or greater. This exam was interpreted at Station ID: [id number]. NOTE: For mammograms, a report in lay terms will be sent to the patient. Approximately 15% of breast malignancies will not be visualized mammographically. In the management of a palpable breast mass, a negative mammogram must not discourage biopsy of a clinically suspicious lesion. Electronically Signed By: Andrea renteria/le:09/17/2022 17:31:14 letter sent: Normal Exam ACR BI-RADS Category 2: Benign Finding(s) [id number]
== END ==
PROVIDERS: PCP Internal Medicine; Referring Provider Internal Medicine; Visit Provider Internal Medicine
DX: Z12.31 Encounter for screening mammogram for malignant neoplasm of breast (principal); Z80.3 Family history of malignant neoplasm of breast
CPT/HCPCS: 77063; 77067

== ENCOUNTER 2023-01-27 11:11 | Emergency (ER) | payer OTHER, SELFPAY ==
[2023-01-27] VITALS (7 sets, daily range): BP systolic 123–137; BP diastolic 57–74; PULSE 57–63; RESP 16; TEMP 36.6; O2SAT 95–98; BMI 26.9
--- NOTE | 2023-01-27 13:12 | ED.HA ---
HPI - Headache General Chief Complaint: Headache Stated Complaint: possible occular migraine, headache, vision proble Time Seen by Provider: 01/27/23 12:12 Source: patient and family Mode of arrival: Ambulatory Limitations: no limitations History of Present Illness HPI Narrative: Patient is a 77-year-old female. 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 She has not had any issues since then. 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 She states that on Saturday she had an episode where she describes changes to her vision. Was not a vision loss but more like jagged edges in her vision. It did appear to be both sides but then she developed a right-sided headache. Those symptoms resolved but then returned again this morning. At the time of my evaluation the vision changes have completely resolved but she was still having a right-sided headache however it had improved since its onset. She reports no changes to her lower extremity neuropathy but she did not have any upper extremity neurologic symptoms. No chest pain. No shortness of breath. She did take some Tylenol last evening for the headache but nothing this morning Related Data Home Medications Medication Instructions Recorded Confirmed atorvastatin 40 mg tablet 40 mg PO DAILY 12/11/19 06/24/22 atenolol 25 mg tablet 12.5 mg PO DAILY 06/24/22 06/24/22 aspirin 81 mg PO DAILY 06/25/22 06/25/22 Previous Rx's Medication Instructions Recorded clopidogrel 75 mg tablet 75 mg PO DAILY #30 tabs 06/25/22 idolebsgtd-tuyxoriztdtqu-nncqlyns 1 cap PO Q4-6H PRN pain #14 caps 01/27/23 50 mg-300 mg-40 mg capsule (Fioricet) Allergies Allergy/AdvReac Type Severity Reaction Status Date / Time hydrocodone Allergy Verified 01/09/21 18:23 Review of Systems Review of Systems ROS Unobtainable: All systems reviewed & are unremarkable except as noted in HPI and below Patient History Medical History Coronary artery disease TIA (transient ischemic attack) URI (upper respiratory infection) Vaginal irritation Surgical History H/O total knee replacement Family History (Updated 06/25/22 @ 02:17 [facility] Mother Congenital heart disease Family/Other Cancer Social History household members: spouse Smoking Status: Never smoker Smoking Status: Never smoker alcohol intake frequency: 0-2 drinks per day Substance Use Type: does not use Exam Initial Vital Signs Initial Vital Signs: Vital Signs Temperature 97.8 F 01/27/23 11:33 Pulse Rate 57 L 01/27/23 11:33 Respiratory Rate 16 01/27/23 11:33 Blood Pressure 128/60 01/27/23 11:33 Pulse Oximetry 97 01/27/23 11:33 Oxygen Delivery Method Room Air 01/27/23 11:33 Const General: cooperative, comfortable and No ill appearing HENMT Head: normal to inspection and normocephalic Mouth: oral mucosae normal Eyes Periorbital: periorbital findings normal Pupils: PERRL EOM: EOM intact bilaterally Resp Effort & Inspection: normal respiratory effort Auscultation: clear to auscultation bilaterally Cardio Rate: regular rate Rhythm: regular rhythm GI Inspection: normal to inspection Skin General: no rashes or lesions noted Neuro General: patient alert, patient awake, patient oriented x3 and moves all extremities Cranial Nerves: CN's II-XI intact bilaterally Cognition: normal cognition Speech: speech normal Gait: normal gait Sensory Exam: no sensory deficits noted Extrem General: normal to inspection and capillary refill normal Psych Appearance: grossly normal and well kempt Course Orders Ordered: ED Orders 01/27/23 12:39 Basic Metabolic Panel Stat Complete Blood Count AUTO DIFF Stat 01/27/23 13:14 CT head/brain wo con Stat Discontinued Medications Ketorolac Tromethamine (Ketorolac 30 Mg/Ml Vial) 30 mg IV NOW ONE Stop: 01/27/23 13:16 Last Admin: 01/27/23 14:05 Dose: 30 mg Documented By: JANET Vital Signs Vital signs: Vital Signs - 8 hr 01/27/23 11:33 01/27/23 14:08 01/27/23 14:08 Temperature 97.8 F Pulse Rate 57 L 63 Respiratory Rate 16 Blood Pressure 128/60 137/74 Pulse Oximetry 97 98 Oxygen Delivery Method Room Air 01/27/23 14:30 01/27/23 14:31 01/27/23 14:31 Temperature Pulse Rate 63 63 Respiratory Rate Blood Pressure 128/65 Pulse Oximetry 96 95 Oxygen Delivery Method 01/27/23 14:40 01/27/23 14:40 01/27/23 14:41 Temperature Pulse Rate 59 L 61 Respiratory Rate Blood Pressure 134/62 Pulse Oximetry 98 97 Oxygen Delivery Method 01/27/23 14:41 01/27/23 15:07 Temperature Pulse Rate 57 L Respiratory Rate 16 Blood Pressure 123/57 L 123/57 L Pulse Oximetry 97 Oxygen Delivery Method Room Air MDM - Headache Lab Data Attestation: I reviewed the patient's lab results. 01/27/23 12:39 01/27/23 12:39 Labs: Lab Results 01/27/23 01/27/23 Range/Units 12:39 12:39 WBC 5.4 (4.5-11.0) X10^3/uL RBC 4.33 (4.0-5.2) X10^6/uL Hgb 14.1 (12.0-16.0) g/dL Hct 40.4 (36-46) % MCV 93.1 (80-100) fL MCH 32.5 (26-34) PG MCHC 34.9 (30-36) % RDW 12.5 (11.6-14.8) % Plt Count 185 (150-400) X10^3/uL Neut % (Auto) 67.1 (50-75) % Lymph % (Auto) 22.6 L (25-40) % [place] % (Auto) 6.9 (3-14) % Eos % (Auto) 2.4 (2-4) % Baso % (Auto) 1.0 (0-2) % Neut # (Auto) 3600 (6498-3529) /uL Lymph # (Auto) 1200 (5329-3325) /uL [place] # (Auto) 400 (0-900) /uL Eos # (Auto) 100 (0-450) /uL Baso # (Auto) 100 (0-100) /uL Sodium 137 (137-145) mmol/L Potassium 4.3 (3.4-5.1) mmol/L Chloride 107 (98-107) mmol/L Carbon Dioxide 26 (22-32) mmol/L BUN 15 (7-17) mg/dL Creatinine 0.78 (0.52-1.04) mg/dL Estimated GFR > 60 (>60) mL/min BUN/Creatinine Ratio 19.2 (6-22) Glucose 106 (80-110) mg/dL Calcium 8.6 (8.4-10.2) mg/dL Imaging Data CT scan - head: Radiologist's Impression: PROCEDURE:? CT HEAD/BRAIN WO CON ? INDICATIONS:? headache with visual changes ? TECHNIQUE:? Noncontrast 4.5 mm thick angled axial sections acquired from the foramen magnum to the vertex, with coronal and sagittal reformats.? For radiation dose reduction, the following was used:? automated exposure control, adjustment of mA and/or kV according to patient size.? ? COMPARISON:? [facility], CT, CT HEAD/BRAIN WO CON, 11/17/2018, 6:58. ? FINDINGS:? Image quality:? Excellent.? ? CSF spaces:? Basal cisterns are patent.? No extra-axial fluid collections.? The ventricles are symmetric in size and shape.? ? Brain:? No intracranial bleeds or masses.? There is cerebral volume loss for age, with resultant ventricular and sulcal prominence.? There are periventricular and deep white matter chronic small vessel ischemic changes.? There is intracranial internal carotid artery atherosclerosis.? ? Skull and face:? Calvarium and visualized facial bones appear intact, without suspicious lesions.? ? Sinuses:? Visualized sinuses and mastoids are clear.? ? IMPRESSION:? 1. No acute intracranial abnormality. 2. Cerebral volume loss and small vessel ischemic changes.? MDM Narrative Medical decision making narrative: Patient had no visual changes by the time that I had observed her. She had a unremarkable neurologic exam and normal cranial nerves. Her head CT is unremarkable. She states that even during her time here her headache actually improved but was not completely gone. I have low suspicion for CVA/TIA. Low suspicion for intracranial hemorrhage. She does have a neurologist that she sees. Will send her home with a prescription for Fioricet to take if her symptoms return however I did talk with her that she needed to talk with her neurologist about the headaches and she was given very specific return precautions. With her and her expressed understanding and agreement with plan. Discharge Plan Departure Patient Disposition: Home Clinical Impression: Headache, Transient vision disturbance Instructions: DI for Headache Activity Restrictions/Additional Instructions: I do recommend that you continue to take all of your medications as directed. Tomorrow contact your primary doctor and also your neurologist for follow-up. Return to the emergency department for new or worsening symptoms. Prescriptions: New mobdakbkli-czzjmzsfwuffu-kjuq [Fioricet] 50-300-40 mg capsule 1 cap PO Q4-6H PRN (Reason: pain) Qty: 14 0RF No Action atorvastatin 40 mg tablet 40 mg PO DAILY atenolol 25 mg tablet 12.5 mg PO DAILY aspirin 81 mg 81 mg PO DAILY clopidogrel 75 mg tablet 75 mg PO DAILY Qty: 30 1RF Referrals: David Lynn MD [Primary Care Provider] - Stand Alone Forms: Patient Portal/API
--- NOTE | 2023-01-27 13:14 | DI.CT.S_ITS ---
PROCEDURE: CT HEAD/BRAIN WO CON INDICATIONS: headache with visual changes TECHNIQUE: Noncontrast 4.5 mm thick angled axial sections acquired from the foramen magnum to the vertex, with coronal and sagittal reformats. For radiation dose reduction, the following was used: automated exposure control, adjustment of mA and/or kV according to patient size. COMPARISON: [facility], CT, CT HEAD/BRAIN WO CON, 11/17/2018, 6:58. FINDINGS: Image quality: Excellent. CSF spaces: Basal cisterns are patent. No extra-axial fluid collections. The ventricles are symmetric in size and shape. Brain: No intracranial bleeds or masses. There is cerebral volume loss for age, with resultant ventricular and sulcal prominence. There are periventricular and deep white matter chronic small vessel ischemic changes. There is intracranial internal carotid artery atherosclerosis. Skull and face: Calvarium and visualized facial bones appear intact, without suspicious lesions. Sinuses: Visualized sinuses and mastoids are clear. IMPRESSION: 1. No acute intracranial abnormality. 2. Cerebral volume loss and small vessel ischemic changes. Dictated by: Malik Crawford M.D. on 01/27/2023 at 13:59 Approved by: Malik Crawford M.D. on 01/27/2023 at 14:01
[2023-01-27 13:21] LABS: Add Manual Diff / Slide Review NO; Basophils Absolute Auto 100 /uL (0-100); Eosinophils Absolute Auto 100 /uL (0-450); Eosinophils Percent Auto 2.4 % (2-4); Hematocrit 40.4 % (36-46); Hemoglobin 14.1 g/dL (12.0-16.0); Lymphocytes Absolute Auto 1200 /uL (1100-4500); Lymphocytes Percent Auto 22.6 % (25-40); Mean Corpuscular HGB Conc 34.9 % (30-36); Mean Corpuscular Hemoglobin 32.5 PG (26-34); Mean Corpuscular Volume 93.1 fL (80-100); Monocytes Absolute Auto 400 /uL (0-900); Monocytes Percent Auto 6.9 % (3-14); Neutrophils Absolute Auto 3600 /uL (1500-7000); Neutrophils Percent Auto 67.1 % (50-75); Platelet Count 185 X10^3/uL (150-400); Red Blood Cell Count 4.33 X10^6/uL (4.0-5.2); Red Cell Distribution Width 12.5 % (11.6-14.8); White Blood Cell Count 5.4 X10^3/uL (4.5-11.0)
[2023-01-27 13:26] LABS: BUN Creatinine Ratio 19.2 (6-22); Blood Urea Nitrogen 15 mg/dL (7-17); Calcium 8.6 mg/dL (8.4-10.2); Carbon Dioxide 26 mmol/L (22-32); Chloride 107 mmol/L (98-107); Estimated Glomerular Filt Rate > 60 mL/min (>60); Glucose 106 mg/dL (80-110); HEMOLYSIS < 15 (0-50); Potassium 4.3 mmol/L (3.4-5.1); Sodium 137 mmol/L (137-145)
[2023-01-27] MEDS: KETOROLAC 30 MG/ML VIAL IV (14:05)
== END 2023-01-27 15:10 | disposition home or self-care (01) ==
PROVIDERS: Emergency Provider Emergency Medicine; PCP Internal Medicine
DX: R51.9 Headache, unspecified (principal); H53.9 Unspecified visual disturbance
CPT/HCPCS: 36415; 70450; 80048; 85025; 96374; 99284; J1885

== ENCOUNTER 2023-02-08 02:38 | Emergency (ER) | payer OTHER, SELFPAY ==
[2023-02-08 02:56] VITALS: BP 142/95; PULSE 63; RESP 18; TEMP 36.5; O2SAT 98; BMI 27.3
--- NOTE | 2023-02-08 03:07 | ED.BACK ---
HPI - Back Pain/Injury General Chief Complaint: Back Pain/Injury Stated Complaint: back pain Time Seen by Provider: 02/08/23 02:58 Source: patient History of Present Illness HPI Narrative: Patient is a 77-year-old female history of hyperlipidemia hypertension coronary artery disease, migraine presenting today with sudden onset of left flank pain. She reports she did nothing strenuous today she is getting ready for a trip so she was packing and doing laundry. When getting ready for bed she started noticing some left flank pain. It is not radiating. However throughout the night as progressively gotten worse. Some of it does seem to be positional she is slightly nauseous at times but no vomiting. No painful frequent urination no hematuria. Related Data Home Medications Medication Instructions Recorded Confirmed atorvastatin 40 mg tablet 40 mg PO DAILY 12/11/19 06/24/22 atenolol 25 mg tablet 12.5 mg PO DAILY 06/24/22 06/24/22 aspirin 81 mg PO DAILY 06/25/22 06/25/22 Previous Rx's Medication Instructions Recorded clopidogrel 75 mg tablet 75 mg PO DAILY #30 tabs 06/25/22 xzzvbuttrw-eoqiefuzqaicr-xdzqqrzd 1 cap PO Q4-6H PRN pain #14 caps 01/27/23 50 mg-300 mg-40 mg capsule (Fioricet) hydrocodone 5 mg-acetaminophen 325 1 tab PO Q6H PRN pain #10 tabs 02/08/23 mg tablet Allergies Allergy/AdvReac Type Severity Reaction Status Date / Time hydrocodone Allergy Verified 01/09/21 18:23 Review of Systems Review of Systems ROS Unobtainable: All systems reviewed & are unremarkable except as noted in HPI and below Patient History Medical History (Updated 02/08/23 @ 04:28 by Kayy Vanegas DO) Coronary artery disease TIA (transient ischemic attack) URI (upper respiratory infection) Vaginal irritation Surgical History H/O total knee replacement Family History Mother Congenital heart disease Family/Other Cancer Social History household members: spouse Smoking Status: Never smoker Smoking Status: Never smoker alcohol intake frequency: 0-2 drinks per day Substance Use Type: does not use Exam Initial Vital Signs Initial Vital Signs: Vital Signs Temperature 97.7 F 02/08/23 02:56 Pulse Rate 63 02/08/23 02:56 Respiratory Rate 18 02/08/23 02:56 Blood Pressure 142/95 H 02/08/23 02:56 Pulse Oximetry 98 02/08/23 02:56 Oxygen Delivery Method Room Air 02/08/23 02:56 GENERAL: Alert pleasant 77-year-old female appears uncomfortable and in no acute distress. HEENT: Head atraumatic,EOMI, pupils reactive, face symmetric, moist mucous membranes CARDIOVASCULAR: Regular rate and rhythm without murmurs, rubs or gallops. RESPIRATORY: Breath sounds equal bilaterally, no wheezes rales or rhonchi. ABDOMEN: Soft, nontender. Normoactive bowel sounds all 4 quadrants. No guarding or rebound. : A left CVA tenderness EXTREMITIES: Normal range of motion, no clubbing or edema. Neurovascularly intact NEUROLOGICAL: Alert and oriented x4. SKIN: Warm, dry, no laceration, no petechiae, no rashes or lesions. Course Orders Ordered: ED Orders 02/08/23 02:58 Urinalysis and Microscopic Stat Urine Culture Stat 02/08/23 03:05 EKG-12 Lead Stat 02/08/23 03:13 CT abdomen pelvis w con Stat 02/08/23 03:18 Complete Blood Count AUTO DIFF Stat Comprehensive Metabolic Panel Stat Discontinued Medications Ketorolac Tromethamine (Ketorolac 30 Mg/Ml Vial) 15 mg IV NOW ONE Stop: 02/08/23 03:14 Last Admin: 02/08/23 03:26 Dose: 15 mg Documented By: KIARRA Ondansetron HCl (Ondansetron 4 Mg/2 Ml Inj) 4 mg IV NOW ONE Stop: 02/08/23 03:14 Last Admin: 02/08/23 03:26 Dose: 4 mg Documented By: KIARRA Vital Signs Vital signs: Vital Signs - 8 hr 02/08/23 02:56 02/08/23 05:15 Temperature 97.7 F 97.8 F Pulse Rate 63 68 Respiratory Rate 18 16 Blood Pressure 142/95 H 132/74 Pulse Oximetry 98 98 Oxygen Delivery Method Room Air Room Air MDM - Back Pain/Injury Lab Data 02/08/23 03:18 02/08/23 03:18 Labs: Lab Results 02/08/23 02/08/23 02/08/23 Range/Units 02:58 03:18 03:18 WBC 6.6 (4.5-11.0) X10^3/uL RBC 4.19 (4.0-5.2) X10^6/uL Hgb 13.8 (12.0-16.0) g/dL Hct 39.0 (36-46) % MCV 93.2 (80-100) fL MCH 32.9 (26-34) PG MCHC 35.3 (30-36) % RDW 13.0 (11.6-14.8) % Plt Count 199 (150-400) X10^3/uL Neut % (Auto) 61.5 (50-75) % Lymph % (Auto) 25.8 (25-40) % [place] % (Auto) 8.5 (3-14) % Eos % (Auto) 3.5 (2-4) % Baso % (Auto) 0.7 (0-2) % Neut # (Auto) 4100 (2393-7303) /uL Lymph # (Auto) 1700 (7295-5686) /uL [place] # (Auto) 600 (0-900) /uL Eos # (Auto) 200 (0-450) /uL Baso # (Auto) 0 (0-100) /uL Sodium 136 L (137-145) mmol/L Potassium 4.2 (3.4-5.1) mmol/L Chloride 104 (98-107) mmol/L Carbon Dioxide 30 (22-32) mmol/L BUN 23 H (7-17) mg/dL Creatinine 0.91 (0.52-1.04) mg/dL Estimated GFR > 60 (>60) mL/min BUN/Creatinine Ratio 25.3 H (6-22) Glucose 104 (80-110) mg/dL Calcium 8.9 (8.4-10.2) mg/dL Total Bilirubin 0.3 (0.2-1.3) mg/dL AST 25 (14-36) IU/L ALT 25 (<35) IU/L Alkaline Phosphatase 56 (38-126) U/L Total Protein 6.9 (6.3-8.2) g/dL Albumin 3.9 (3.5-5.0) g/dL Globulin 3.0 (1.7-4.1) g/dL Albumin/Globulin Ratio 1.3 (1.0-2.8) Urine Color Yellow Urine Appearance Clear Urine pH 5.5 (4.5-8.0) Ur Specific [place] <=1.005 (1.000-1.035) Urine Protein Negative (Negative) Urine Glucose (UA) Negative (Negative) g/dL Urine Ketones Negative (NEGATIVE) Urine Occult Blood Trace-intact (Negative) Urine Nitrate Negative (Negative) Urine Bilirubin Negative (NEGATIVE) Urine Urobilinogen 0.2 (0.2) E.U./dL Ur Leukocyte Esterase 1+ H (NEGATIVE) Urine RBC 0-1/hpf (0-5/HPF) Urine WBC 0-1/hpf (0-5/HPF) Ur Squamous Epith Cells 0-1 /hpf (0-5/HPF) Ur Transition Epith Cell 0-1/hpf (0-5/HPF) Urine Bacteria None seen (None) Ur Culture Indicated? Specimen cultured Imaging Data CT scan - abdomen/pelvis: Radiologist's Impression: Preliminary report: No evidence of colitis diverticulitis bowel obstruction obstructive uropathy or acute appendicitis. No CT to explain left flank ECG Data Interpretation: Normal sinus rhythm rate 54 MS 132 QRS 88 QTC 4 3 T changes no T-wave inversions MDM Narrative Medical decision making narrative: Patient presents with sudden onset of left flank pain. She denies any injury. She is had some bouts of nausea or vomiting. Pain is actually worse with certain positions. Her pain improved with Toradol. She is no leukocytosis anemia or thrombocytopenia. Significant electrolyte abnormalities or TAN. EKG does not show any signs of ischemia. CT did not find any cause of her pain. I do not suspect dissection it is definitely worse with palpation and movement. I suspect a muscle spasm. She has no hematuria or sign of infection. Overall him better and feels ready able to home. Discharge Plan Departure Patient Disposition: Home Clinical Impression: Back muscle spasm Instructions: DI for Back Spasm Activity Restrictions/Additional Instructions: *You have been diagnosed with back spasm *What to do: At this time increase activity as tolerated, try heating pad light stretches light activity. *Continue to take medications as directed Motrin 600 mg every 6 hours if needed for ljcq-qr-pospvihc pain Tylenol 650 mg every 4-6 hours if needed for mhwk-uw-hfpxnwfh [place] 1 tablet every 6 hours needed for severe *Follow up with your primary care provider in 2-3 days or call [phone] *Return to ER if you should have increasing pain change in urination or stool weakness in lower extremities or any new, worsening or concerning symptoms CONTROLLED SUBSTANCE DISCHARGE (Narcotoic/benzodiazepine/Flexeril/Phenergan) 1. You have been prescribed narcotic medications, it does have acetaminophen/Tylenol/paracetamol in it, DO NOT TAKE MORE THAN 4,00mg in 24 hours of Tylenol. TRAMADOL DOES NOT CONTAIN TYLENOL 2. Please understand that we cannot provide further refills of narcotics, benzodiazepines or controlled substances through the ED and her pain management will need to be through your provider. 3. While on these medications you cannot drive or operate heavy machinery. 4. You cannot sign legal documents or perform any duties such as this. 5. As long as you're taking opiate pain medications he should also be taking a stool softener such as Colace, Dulcolax, MiraLAX or prune juice, to help avoid constipation. Prescriptions: New hydrocodone-acetaminophen 5-325 mg tablet 1 tab PO Q6H PRN (Reason: pain) Qty: 10 0RF No Action atorvastatin 40 mg tablet 40 mg PO DAILY atenolol 25 mg tablet 12.5 mg PO DAILY aspirin 81 mg 81 mg PO DAILY clopidogrel 75 mg tablet 75 mg PO DAILY Qty: 30 1RF varpxvqlcy-zsfqclkjptiov-gute [Fioricet] 50-300-40 mg capsule 1 cap PO Q4-6H PRN (Reason: pain) Qty: 14 0RF Referrals: David Lynn MD [Primary Care Provider] - Stand Alone Forms: Patient Portal/API
[2023-02-08 03:13] LABS: Appearance Urine UA CLEAR; Bilirubin Urine UA NEGATIVE (NEGATIVE); Color Urine UA YELLOW; Glucose Urine UA NEGATIVE (Negative); Ketones Urine UA NEGATIVE (NEGATIVE); Leukocyte Esterase Urine UA 1+ (NEGATIVE); Nitrite Urine UA NEGATIVE (Negative); Occult Blood Urine UA TRACE-INTACT (Negative); Protein Urine UA NEGATIVE (Negative); Specific Gravity Urine UA <=1.005 (1.000-1.035); Urobilinogen Urine UA 0.2 E.U./dL (0.2)
--- NOTE | 2023-02-08 03:13 | DI.CT.S_ITS ---
PROCEDURE: CT ABDOMEN PELVIS W CON INDICATIONS: left flank pain TECHNIQUE: After the administration of intravenous contrast, axial sections acquired from the lung bases to the pubic symphysis. Coronal and sagittal reformats were performed. For radiation dose reduction, the following was used: automated exposure control, adjustment of mA and/or kV according to patient size. COMPARISON: [facility], CT, CT ABDOMEN PELVIS W CON, 06/24/2020, 20:10. FINDINGS: Image quality: Excellent. Lung bases: Minimal bibasilar atelectasis. Small hiatal hernia. Heart: Heart size is normal. ABDOMEN: Liver: Unremarkable. Small focal hypodensity in the liver adjacent to the gallbladder fossa likely representing a cyst or hemangioma. Gallbladder: Unremarkable Biliary ducts: Unremarkable. Pancreas: Unremarkable. Spleen: Unremarkable. Adrenal Glands: Unremarkable. Kidneys and Ureters: Kidneys are symmetric in size and enhancement, and there is no obstructive uropathy. No perinephric inflammatory changes. Ureters are normal in course and caliber. Small bilateral renal hypodensities which are too small to accurately characterize but statistically represent simple renal cysts. Stomach and Bowel: Stomach, small bowel loops, and colon are unremarkable. Normal appendix. Scattered colonic diverticula without acute inflammation. Peritoneum: No abnormal intraperitoneal fluid. No free air. Ventral Wall: No hernias. Abdominal Nodes: No retroperitoneal or mesenteric adenopathy by size criteria. Vessels: Scattered atherosclerotic calcifications of the abdominal aorta and iliac vessels without aneurysmal dilatation. The inferior vena cava appears patent. PELVIS: Pelvic Organs: Unremarkable. Bladder: Unremarkable. Pelvic Nodes: No enlarged lymph nodes. Miscellaneous: No hernias are seen. Bones: No acute vertebral body compression fractures. Multilevel spondylitic changes throughout the imaged spine. No suspicious osseous lesions. IMPRESSION: 1. CT abdomen and pelvis without acute abnormalities to explain patient's symptoms. 2. Colonic diverticulosis without evidence for acute diverticulitis. 3. No evidence for obstructive uropathy. 4. Atherosclerosis. 5. Small hiatal hernia. No significant discrepancy with the night clerk auditor radiology preliminary report. Dictated by: Alexandru Barreto M.D. on 02/08/2023 at 8:43 Approved by: Alexandru Barreto M.D. on 02/08/2023 at 8:54
[2023-02-08 03:16] LABS: pH Urine UA 5.5 (4.5-8.0)
[2023-02-08 03:20] LABS: Bacteria Urine None Seen; Culture Indicated Urine Specimen Cultured; RBC Urine 0-1/HPF (0-5/HPF); Squamous Epithelial Cell Urine 0-1 /HPF (0-5/HPF); Transitional Epi Cells Urine 0-1/HPF (0-5/HPF); WBC Urine 0-1/HPF (0-5/HPF)
[2023-02-08] MEDS: KETOROLAC 30 MG/ML VIAL 15 MG IV (03:26)
[2023-02-08] MEDS: ONDANSETRON 4 MG/2 ML INJ IV (03:26)
[2023-02-08 03:31] LABS: Add Manual Diff / Slide Review NO; Basophils Absolute Auto 0 /uL (0-100); Basophils Percent Auto 0.7 % (0-2); Eosinophils Absolute Auto 200 /uL (0-450); Eosinophils Percent Auto 3.5 % (2-4); Hemoglobin 13.8 g/dL (12.0-16.0); Lymphocytes Absolute Auto 1700 /uL (1100-4500); Lymphocytes Percent Auto 25.8 % (25-40); Mean Corpuscular HGB Conc 35.3 % (30-36); Mean Corpuscular Hemoglobin 32.9 PG (26-34); Mean Corpuscular Volume 93.2 fL (80-100); Monocytes Absolute Auto 600 /uL (0-900); Monocytes Percent Auto 8.5 % (3-14); Neutrophils Absolute Auto 4100 /uL (1500-7000); Neutrophils Percent Auto 61.5 % (50-75); Platelet Count 199 X10^3/uL (150-400); Red Blood Cell Count 4.19 X10^6/uL (4.0-5.2); White Blood Cell Count 6.6 X10^3/uL (4.5-11.0)
[2023-02-08 03:37] LABS: Alanine Aminotransferase 25 IU/L (<35); Albumin 3.9 g/dL (3.5-5.0); Albumin Globulin Ratio 1.3 (1.0-2.8); Alkaline Phosphatase 56 U/L (38-126); Aspartate Aminotransferase 25 IU/L (14-36); BUN Creatinine Ratio 25.3 (6-22); Bilirubin Total 0.3 mg/dL (0.2-1.3); Blood Urea Nitrogen 23 mg/dL (7-17); Calcium 8.9 mg/dL (8.4-10.2); Carbon Dioxide 30 mmol/L (22-32); Chloride 104 mmol/L (98-107); Estimated Glomerular Filt Rate > 60 mL/min (>60); Glucose 104 mg/dL (80-110); HEMOLYSIS < 15 (0-50); Potassium 4.2 mmol/L (3.4-5.1); Sodium 136 mmol/L (137-145); Total Protein 6.9 g/dL (6.3-8.2)
[2023-02-08 05:15] VITALS: BP 132/74; PULSE 68; RESP 16; TEMP 36.6; O2SAT 98
== END 2023-02-08 05:17 | disposition home or self-care (01) ==
PROVIDERS: Emergency Provider Emergency Medicine; PCP Internal Medicine
DX: M62.830 Muscle spasm of back (principal); R10.9 Unspecified abdominal pain
CPT/HCPCS: 36415; 74177; 80053; 81001; 85025; 87086; 93005; 93010; 96374; 96375; 99284; J1885; J2405; Q9967

== ENCOUNTER → 2023-07-24 08:43 | Outpatient (CLI) | payer OTHER, SELFPAY ==
[2023-07-24 10:24] LABS: Alanine Aminotransferase 22 IU/L (<35); Albumin 3.9 g/dL (3.5-5.0); Albumin Globulin Ratio 1.4 (1.0-2.8); Alkaline Phosphatase 55 U/L (38-126); Aspartate Aminotransferase 25 IU/L (14-36); BUN Creatinine Ratio 25.8 (6-22); Bilirubin Total 0.4 mg/dL (0.2-1.3); Blood Urea Nitrogen 24 mg/dL (7-17); Calcium 9.3 mg/dL (8.4-10.2); Carbon Dioxide 29 mmol/L (22-32); Chloride 103 mmol/L (98-107); Cholesterol 169 mg/dL (140-199); Estimated Glomerular Filt Rate > 60 mL/min (>60); Globulin 2.7 g/dL (1.7-4.1); Glucose 96 mg/dL (80-110); HDL Cholesterol 67 mg/dL (40-60); HEMOLYSIS < 15 (0-50); LDL Cholesterol Calculated 77 mg/dL (<100); Potassium 4.5 mmol/L (3.4-5.1); Sodium 137 mmol/L (137-145); Total Protein 6.6 g/dL (6.3-8.2); Triglycerides 125 mg/dL (35-150)
== END ==
PROVIDERS: PCP Internal Medicine; Referring Provider Internal Medicine Cardiovascular Disease; Visit Provider Internal Medicine Cardiovascular Disease
DX: I25.10 Atherosclerotic heart disease of native coronary artery without angina pectoris (principal)
CPT/HCPCS: 36415; 80053; 80061

== ENCOUNTER → 2023-10-02 13:53 | Outpatient (CLI) | payer OTHER, SELFPAY | PROVIDERS: PCP Family Medicine; Visit Provider Nurse Practitioner Family | DX: R10.9 Unspecified abdominal pain (principal) | CPT/HCPCS: 87086 ==

== ENCOUNTER → 2023-10-02 14:18 | Outpatient (CLI) | payer OTHER, SELFPAY ==
--- NOTE | 2023-10-02 14:19 | DI.RAD.S_ITS ---
PROCEDURE: XR RIBS LT MIN 3V W CXR1V INDICATIONS: Left rib pain TECHNIQUE: 2 views of the left ribs were acquired, along with a single view chest. COMPARISON: None. FINDINGS: Surgical changes and devices: None. Bones and chest wall: No fractures or dislocations. No suspicious bony lesions. Overlying soft tissues appear unremarkable. Lungs and pleura: No pleural effusions or pneumothorax. Lungs appear clear. Mediastinum: Mediastinal contours appear normal. Heart size is normal. IMPRESSION: No displaced rib fracture or pneumothorax. Dictated by: Natalia Francois M.D. on 10/02/2023 at 17:40 Approved by: Natalia Francois M.D. on 10/02/2023 at 17:40
== END ==
PROVIDERS: PCP Family Medicine; Referring Provider Nurse Practitioner Family; Visit Provider Nurse Practitioner Family
DX: R07.81 Pleurodynia (principal); R10.9 Unspecified abdominal pain
CPT/HCPCS: 71101; 87086

== ENCOUNTER → 2023-11-18 14:53 | Outpatient (CLI) | payer OTHER, SELFPAY ==
[2023-10-09 10:55] VITALS: BMI 26.7
--- NOTE | 2023-11-18 | DI.MG.S_ITS ---
BILATERAL DIGITAL SCREENING MAMMOGRAM 3D/2D WITH CAD: 11/18/2023 CLINICAL: Routine screening. Family history of breast cancer. Comparison is made to exams dated: 09/17/2022 mammogram, 08/21/2021 mammogram, and 08/23/2020 mammogram - [facility]. Both breasts are heterogeneously dense, which may obscure small masses (category c / 51-75% glandular tissue). Current study was also evaluated with a Computer Aided Detection (CAD) system. There are benign calcifications in the left breast. No significant masses, calcifications, or other findings are seen in either breast. There has been no significant interval change. IMPRESSION: BENIGN There is no mammographic evidence of malignancy. A 1 year screening mammogram is recommended. Based on the Tyrer Cuzick model (a risk assessment model) the patient's lifetime risk is 5.3% and her 10 year risk is 0.0%. According to the ACR, ACS, and NCCN guidelines, an annual breast MRI exam along with mammogram is recommended if the patient's lifetime risk is 20% or greater. This exam was interpreted at Station ID: [id number]. NOTE: For mammograms, a report in lay terms will be sent to the patient. Approximately 15% of breast malignancies will not be visualized mammographically. In the management of a palpable breast mass, a negative mammogram must not discourage biopsy of a clinically suspicious lesion. Electronically Signed By: Rachel briones/le:11/18/2023 15:53:56 letter sent: Normal Exam ACR BI-RADS Category 2: Benign Finding(s) 3342F
== END ==
PROVIDERS: PCP Family Medicine; Referring Provider Family Medicine; Visit Provider Family Medicine
DX: Z12.31 Encounter for screening mammogram for malignant neoplasm of breast (principal); Z80.3 Family history of malignant neoplasm of breast; R92.333 Mammographic heterogeneous density, bilateral breasts
CPT/HCPCS: 77063; 77067

== ENCOUNTER → 2024-04-24 09:04 | Outpatient (CLI) | payer MEDICARE, SELFPAY ==
[2023-10-09 10:55] VITALS: BMI 26.7
[2024-04-24 11:05] LABS: HEMOLYSIS < 15 (0-50)
[2024-04-24 11:23] LABS: Total Iron Binding Capacity 258 ug/dL (265-497)
[2024-04-24 11:29] LABS: Hemoglobin A1C% w Est Avg Glu 6.1 % (4.0-6.0)
[2024-04-24 12:04] LABS: Vitamin B12 Reflex MMA if <400 357 pg/mL (239-931)
[2024-04-24 16:22] LABS: Alanine Aminotransferase 20 IU/L (<35); Albumin Globulin Ratio 1.5 (1.0-2.8); Alkaline Phosphatase 64 U/L (38-126); Aspartate Aminotransferase 29 IU/L (14-36); BUN Creatinine Ratio 19.1 (6-22); Bilirubin Total 0.7 mg/dL (0.2-1.3); Blood Urea Nitrogen 17 mg/dL (7-17); Calcium 9.3 mg/dL (8.4-10.2); Carbon Dioxide 28 mmol/L (22-32); Chloride 108 mmol/L (98-107); Estimated Glomerular Filt Rate > 60 mL/min (>60); Globulin 2.6 g/dL (1.7-4.1); Glucose 98 mg/dL (80-110); Sodium 142 mmol/L (137-145); Total Protein 6.6 g/dL (6.3-8.2)
[2024-04-24 16:28] LABS: Potassium 5.5 mmol/L (3.4-5.1)
== END ==
PROVIDERS: PCP Family Medicine; Referring Provider Family Medicine; Visit Provider Family Medicine
DX: G25.81 Restless legs syndrome (principal); R73.03 Prediabetes; I83.90 Asymptomatic varicose veins of unspecified lower extremity
CPT/HCPCS: 36415; 80053; 82607; 83036; 83540; 83550; 83735; 83921

== ENCOUNTER → 2024-05-01 16:22 | Outpatient (CLI) | payer MEDICARE, SELFPAY ==
[2023-10-09 10:55] VITALS: BMI 26.7
--- NOTE | 2024-05-01 16:23 | DI.US.S_ITS ---
PROCEDURE: US PELVIC COMPLETE INDICATIONS: prior reported cyst, persistent pelvic pressure/cramping TECHNIQUE: Real-time scanning was performed of the pelvic organs, with image documentation. Additional endovaginal scanning was necessary due to incomplete visualization of the adnexal and endometrial structures by transabdominal scanning. COMPARISON: None. FINDINGS: Uterus: Uterus is anteverted and normal in size at 7.4 x 2.3 x 3.9 cm. The myometrium is heterogeneous with areas of echogenic foci suggestive of parenchymal calcifications. No discrete uterine fibroid is seen. The endometrium measures 1-2 mm combined thickness. No endometrial mass . Small amount of fluid is noted within endocervical canal. Ovaries: Bilateral ovaries are not visualized due to overlying bowel gas. No adnexal masses are seen. Other: No pathologic free abdominal or pelvic fluid. IMPRESSION: 1. Heterogeneous myometrium with full side of parenchymal calcification. No discrete uterine fibroids. 2. Thin endometrium without endometrial mass. Small amount of fluid within endocervical canal. 3. Bilateral ovaries are not visualized. No adnexal mass. We strive to produce accurate, complete, and clear reports of imaging services. To assist us in improving patient care, this report was composed using standard report templates and voice recognition software. Therefore, it may contain abnormal punctuation, insertions and/or omissions. Occasional wrong-word or sound-alike substitutions may occur. Though we review the report and make efforts to correct it, we do recommend that the report be read carefully in proper context to recognize any text inaccuracies. Dictated by: Won Reyes M.D. on 05/01/2024 at 23:43 Approved by: Won Reyes M.D. on 05/01/2024 at 23:45
== END ==
PROVIDERS: PCP Family Medicine; Referring Provider Family Medicine; Visit Provider Family Medicine
DX: R10.2 Pelvic and perineal pain (principal)
CPT/HCPCS: 76856

== ENCOUNTER → 2024-05-04 16:00 | Outpatient (CLI) | payer MEDICARE, SELFPAY ==
[2023-10-09 10:55] VITALS: BMI 26.7
[2024-05-04 17:21] LABS: Add Manual Diff / Slide Review NO; Basophils Absolute Auto 100 /uL (0-100); Basophils Percent Auto 1.1 % (0-2); Eosinophils Absolute Auto 300 /uL (0-450); Eosinophils Percent Auto 4.9 % (2-4); Hematocrit 38.4 % (36-46); Hemoglobin 13.4 g/dL (12.0-16.0); Lymphocytes Absolute Auto 1500 /uL (1100-4500); Lymphocytes Percent Auto 25.2 % (25-40); Mean Corpuscular HGB Conc 34.8 % (30-36); Mean Corpuscular Hemoglobin 32.5 PG (26-34); Mean Corpuscular Volume 93.2 fL (80-100); Monocytes Absolute Auto 400 /uL (0-900); Monocytes Percent Auto 6.3 % (3-14); Neutrophils Absolute Auto 3600 /uL (1500-7000); Neutrophils Percent Auto 62.5 % (50-75); Platelet Count 215 X10^3/uL (150-400); Red Blood Cell Count 4.12 X10^6/uL (4.0-5.2); Red Cell Distribution Width 12.9 % (11.6-14.8); White Blood Cell Count 5.8 X10^3/uL (4.5-11.0)
== END ==
PROVIDERS: PCP Family Medicine; Referring Provider Family Medicine; Visit Provider Family Medicine
DX: D50.9 Iron deficiency anemia, unspecified (principal)
CPT/HCPCS: 36415; 85025

== ENCOUNTER → 2024-08-31 10:19 | Outpatient (CLI) | payer OTHER, SELFPAY ==
[2023-10-09 10:55] VITALS: BMI 26.7
[2024-08-31 11:07] LABS: Hemoglobin A1C% w Est Avg Glu 5.8 % (4.0-6.0)
[2024-08-31 11:23] LABS: HEMOLYSIS < 15 (0-50); Iron 126 ug/dL (37-170)
[2024-08-31 11:27] LABS: C-Reactive Protein Quant < 0.5 mg/dL (<1.0)
[2024-08-31 11:33] LABS: Percent Iron Saturation 44 % (15-50); Total Iron Binding Capacity 287 ug/dL (265-497); Transferrin 232 mg/dL (206-381)
[2024-08-31 11:58] LABS: Ferritin 83 ng/mL (11-264)
== END ==
PROVIDERS: PCP Family Medicine; Referring Provider Family Medicine; Visit Provider Family Medicine
DX: R79.0 Abnormal level of blood mineral (principal); R73.03 Prediabetes
CPT/HCPCS: 36415; 82728; 83036; 83540; 83550; 86140

== ENCOUNTER → 2024-09-30 11:04 | Outpatient (CLI) | payer OTHER, SELFPAY ==
[2023-10-09 10:55] VITALS: BMI 26.7
--- NOTE | 2024-09-30 11:05 | DI.RAD.S_ITS ---
PROCEDURE: XR FOOT RT MIN 3V INDICATIONS: bruising of unknown origin TECHNIQUE: 3 views of the foot were acquired. COMPARISON: None. FINDINGS: Diffuse osseous demineralization. Subacute versus chronic 5th digit proximal phalangeal head and shaft fracture with intra-articular extension to the IP joint. The 5th digit middle and distal phalanges are fused. Mild cortical hyperostosis of the 2nd-4th metatarsal shafts, which may be secondary to prior stress fractures. Otherwise, no acute fracture or dislocation. Mild scattered midfoot osteoarthritis. IMPRESSION: Subacute versus chronic 5th digit proximal phalangeal head/after actor. Please correlate with point tenderness. Dictated by: Jose Ballesteros M.D. on 09/30/2024 at 19:53 Approved by: Joes Ballesteros M.D. on 09/30/2024 at 19:56
== END ==
PROVIDERS: PCP Family Medicine; Referring Provider Family Medicine; Visit Provider Family Medicine
DX: S92.511A Displaced fracture of proximal phalanx of right lesser toe(s), initial encounter for closed fracture (principal); S90.30XA Contusion of unspecified foot, initial encounter; M19.071 Primary osteoarthritis, right ankle and foot; M89.8X7 Other specified disorders of bone, ankle and foot; R23.3 Spontaneous ecchymoses; X58.XXXA Exposure to other specified factors, initial encounter
CPT/HCPCS: 73630

== ENCOUNTER → 2024-10-27 12:07 | Outpatient (CLI) | payer MEDICARE, SELFPAY ==
[2023-10-09 10:55] VITALS: BMI 26.7
[2024-10-27 13:36] LABS: Alanine Aminotransferase 22 IU/L (<35); Albumin 4.2 g/dL (3.5-5.0); Albumin Globulin Ratio 1.8 (1.0-2.8); Alkaline Phosphatase 62 U/L (38-126); Aspartate Aminotransferase 28 IU/L (14-36); BUN Creatinine Ratio 19.8 (6-22); Bilirubin Total 0.4 mg/dL (0.2-1.3); Blood Urea Nitrogen 20 mg/dL (7-17); Calcium 9.5 mg/dL (8.4-10.2); Carbon Dioxide 29 mmol/L (22-32); Chloride 103 mmol/L (98-107); Cholesterol 154 mg/dL (140-199); Estimated Glomerular Filt Rate 57 mL/min (>60); Globulin 2.4 g/dL (1.7-4.1); Glucose 103 mg/dL (80-110); HDL Cholesterol 74 mg/dL (40-60); HEMOLYSIS < 15 (0-50); LDL Cholesterol Calculated 48 mg/dL (<100); Potassium 4.7 mmol/L (3.4-5.1); Sodium 136 mmol/L (137-145); Total Protein 6.6 g/dL (6.3-8.2); Triglycerides 161 mg/dL (35-150)
[2024-10-27 13:47] LABS: LDL Cholesterol Direct 49 mg/dL (<100)
== END ==
PROVIDERS: PCP Family Medicine; Referring Provider Internal Medicine Cardiovascular Disease; Visit Provider Internal Medicine Cardiovascular Disease
DX: E78.00 Pure hypercholesterolemia, unspecified (principal); I25.10 Atherosclerotic heart disease of native coronary artery without angina pectoris
CPT/HCPCS: 36415; 80053; 80061; 83721

== ENCOUNTER 2024-11-16 01:49 | Emergency (ER) | payer MEDICARE, SELFPAY ==
[2023-10-09 10:55] VITALS: BMI 26.7
[2024-11-16] VITALS (9 sets, daily range): BP systolic 116–134; BP diastolic 55–72; PULSE 57–64; RESP 16–20; TEMP 37.1; O2SAT 93–98; BMI 26.9
--- NOTE | 2024-11-16 02:23 | ED_ITS ---
HPI - Back Pain/Injury General Chief Complaint: Back Pain/Injury Stated Complaint: back pain Time Seen by Provider: 11/16/24 01:52 Source: patient History of Present Illness HPI Narrative: 79-year-old female presents for left-sided mid back pain. Patient states that she has traveled recently and ever since returning she was had pain in her back. It was worse at night and when performing twisting activities. She took some ibuprofen before bed, but was awoken around midnight with worsening pain it was unable to go back to sleep. Denies injury, Related Data Home Medications Medication Instructions Recorded Confirmed atorvastatin 40 mg tablet 40 mg PO DAILY 12/11/19 09/24/24 atenolol 25 mg tablet 12.5 mg PO DAILY 06/24/22 09/24/24 aspirin 81 mg PO DAILY 06/25/22 09/24/24 cholecalciferol (vitamin D3) 25 25 mcg PO DAILY 08/15/23 09/24/24 mcg (1,000 unit) tablet omega-3 fatty acids 1,250 mg 1,250 mg PO DAILY 08/15/23 09/24/24 capsule Previous Rx's Medication Instructions Recorded cluveposzu-hgjqndjrgnshc-xxiyizbg 1 cap PO Q4-6H PRN pain #14 caps 01/27/23 50 mg-300 mg-40 mg capsule (Fioricet) pramipexole 0.125 mg tablet 0.125 mg PO BEDTIME #30 tabs 04/06/24 sumatriptan succinate 25 mg tablet See Rx Instructions PO .COMPLEX 09/24/24 #30 tabs cyclobenzaprine 10 mg tablet 10 mg PO BEDTIME PRN muscle spasm 11/16/24 #10 tabs methylprednisolone 4 mg tablets in See Rx Instructions PO .COMPLEX 11/16/24 a dose pack (Medrol (Rangel)) #21 ea Allergies Allergy/AdvReac Type Severity Reaction Status Date / Time No Known Allergies Allergy Verified 09/24/24 15:19 Patient History Medical History Hyperkalemia Diarrhea Sprain of right thumb Left wrist fracture Pustule of nostril Vaginal irritation TIA (transient ischemic attack) Coronary artery disease Surgical History H/O total knee replacement Family History Mother Congenital heart disease Family/Other Cancer Social History household members: spouse Smoking Status: Never smoker Smoking Status: Never smoker alcohol intake frequency: 0-2 drinks per day Exam Initial Vital Signs Initial Vital Signs: Vital Signs Temperature 98.8 F 11/16/24 01:57 Pulse Rate 60 11/16/24 01:57 Respiratory Rate 16 11/16/24 01:57 Blood Pressure 129/64 11/16/24 01:57 Pulse Oximetry 97 11/16/24 01:57 Oxygen Delivery Method Room Air 11/16/24 01:57 Const: Awake, alert, no acute distress, nontoxic appearing Cardiac: regular rate, regular rhythm RESP: unlabored, speaking in complete sentences without dyspnea MSK back: No midline tenderness, full range of motion, left-sided paraspinal tenderness lower thoracic/upper lumbar spine Skin: Warm, Dry, intact, no rashes Neuro: AO x3, CN II-XII grossly intact, moves all extremities Course Orders Ordered: ED Orders 11/16/24 03:37 EKG-12 Lead Stat 11/16/24 03:40 CBC Auto Diff [Complete Blood Count AUTO DIFF] Stat CMP [Comprehensive Metabolic Panel] Stat D Dimer Stat Troponin & CK Cardiac Panel Stat Discontinued Medications Diazepam (Diazepam 10 Mg/2 Ml Syringe) 3 mg IV NOW ONE Stop: 11/16/24 02:12 Last Admin: 11/16/24 02:27 Dose: 3 mg Documented By: JAYLENE Acetaminophen (Ofirmev) 1,000 mg in 100 mls @ 400 mls/hr IV NOW ONE Stop: 11/16/24 02:25 Last Infusion: 11/16/24 02:45 Dose: Infused Documented By: Admin: 11/16/24 02:27 Dose: 400 mls/hr Documented By: JAYLENE Ketorolac Tromethamine (Ketorolac 30 Mg/Ml Vial) 15 mg IV NOW ONE Stop: 11/16/24 02:14 Last Admin: 11/16/24 02:27 Dose: 15 mg Documented By: JAYLENE Lidocaine (Lidocaine 5% Patch) 1 each TOP NOW ONE Stop: 11/16/24 02:12 Last Admin: 11/16/24 02:26 Dose: 1 each Documented By: LS Vital Signs Vital signs: Vital Signs - 8 hr 11/16/24 01:57 11/16/24 02:08 11/16/24 02:30 Temperature 98.8 F Pulse Rate 60 58 L 60 Respiratory Rate 16 Blood Pressure 129/64 Pulse Oximetry 97 95 95 Oxygen Delivery Method Room Air 11/16/24 03:00 11/16/24 03:27 11/16/24 03:27 Temperature Pulse Rate 59 L 64 Respiratory Rate Blood Pressure 120/58 L Pulse Oximetry 93 98 Oxygen Delivery Method 11/16/24 03:30 11/16/24 03:30 11/16/24 03:46 Temperature Pulse Rate 57 L Respiratory Rate Blood Pressure 116/55 L 134/72 Pulse Oximetry 97 Oxygen Delivery Method 11/16/24 03:46 Temperature Pulse Rate 59 L Respiratory Rate 20 Blood Pressure Pulse Oximetry 97 Oxygen Delivery Method Room Air MDM - Back Pain/Injury Differential Diagnosis Differential diagnosis: Likely lumbar radiculopathy, strain of lumbar region and thoracic back pain Lab Data 11/16/24 03:40 11/16/24 03:40 Labs: Lab Results 11/16/24 Range/Units 03:40 WBC 4.7 (4.5-11.0) X10^3/uL RBC 4.31 (4.0-5.2) X10^6/uL Hgb 13.9 (12.0-16.0) g/dL Hct 40.5 (36-46) % MCV 93.9 (80-100) fL MCH 32.2 (26-34) PG MCHC 34.3 (30-36) % RDW 12.8 (11.6-14.8) % Plt Count 181 (150-400) X10^3/uL Neut % (Auto) 58.2 (50-75) % Lymph % (Auto) 23.3 L (25-40) % [place] % (Auto) 11.2 (3-14) % Eos % (Auto) 6.3 H (2-4) % Baso % (Auto) 1.0 (0-2) % Neut # (Auto) 2700 (2635-1858) /uL Lymph # (Auto) 1100 (4172-5564) /uL [place] # (Auto) 500 (0-900) /uL Eos # (Auto) 300 (0-450) /uL Baso # (Auto) 0 (0-100) /uL D-Dimer 730 H (<500) ng/ml Sodium 137 (137-145) mmol/L Potassium 4.2 (3.4-5.1) mmol/L Chloride 106 (98-107) mmol/L Carbon Dioxide 25 (22-32) mmol/L BUN 22 H (7-17) mg/dL Creatinine 0.82 (0.52-1.04) mg/dL Estimated GFR > 60 (>60) mL/min BUN/Creatinine Ratio 26.8 H (6-22) Glucose 103 (80-110) mg/dL Calcium 8.9 (8.4-10.2) mg/dL Total Bilirubin 0.3 (0.2-1.3) mg/dL AST 27 (14-36) IU/L ALT 20 (<35) IU/L Alkaline Phosphatase 51 (38-126) U/L Total Creatine Kinase 113 (30-135) U/L Troponin I < 0.012 (0.01-0.034) ng/mL Total Protein 6.2 L (6.3-8.2) g/dL Albumin 3.7 (3.5-5.0) g/dL Globulin 2.5 (1.7-4.1) g/dL Albumin/Globulin Ratio 1.5 (1.0-2.8) Urine Dip Bedside Urine Glucose Negative Bedside Urine Bilirubin - Negative Bedside Urine Ketone - Negative Urine Specific [place] 1.02 Bedside Urine Occult Blood - Negative Bedside Urine pH 6 Bedside Urine Protein - Negative Bedside Urine Urobilinogen - Negative Bedside Urine Nitrite - Negative Bedside Urine Leukocytes - Negative Esterase ECG Data Interpretation: Sinus bradycardia at 51 beats per minute. Normal NE. No ST T wave changes MDM Narrative Medical decision making narrative: Paraspinal lower thoracic/upper lumbar pain. Pain is reproducible to palpation and worse with motion. Suspect musculoskeletal etiology. IV established, medications for pain ordered. Patient reassessed, she states that her pain is improved but it was still a 4/10. She states that she was concerned that it may be something else. When she had a heart attack the only symptom was something as similar as bad indigestion. She was worried that it may be either a kidney stone or something to do with her heart. Point of care urinalysis shows no blood or signs of infection. Patient states that she would like to defer extra costs by not doing any imaging, but accepts laboratory work. Laboratory work reviewed, WBC count 4.7, hemoglobin 13.9, platelet count 181, sodium 137, potassium 4.2, creatinine 0.82, normal liver enzymes, troponin undetectable. D-dimer 730, which is technically elevated but within acceptable limits when adjusted for age. Patient informed of all lab findings at bedside. Patient states that she was relieved to know that her heart enzymes are normal. She was counseled to continue to take Tylenol and ibuprofen as needed for discomfort. She was advised to do gentle activity and stretching exercises to help with her back. Short course of muscle relaxers sent for as needed nighttime use with caution taken to avoid risk of falls. Medrol Dosepak ordered as well. Discharge Plan Departure Patient Disposition: Home Clinical Impression: Back spasm Instructions: DI for Back Spasm Activity Restrictions/Additional Instructions: Your laboratory work today showed normal kidney function, undetectable heart enzymes (a good thing!) And no sign of blood clots. Your urine was clear of infection or blood. Alternate Tylenol and ibuprofen per label instructions for pain. A muscle relaxer has been prescribed that you may take at night to help relieve your muscles and help you sleep. A short steroid taper has also been sent to your pharmacy. The muscle relaxers may cause drowsiness so do not take them with alcohol or before driving. Prescriptions: New cyclobenzaprine 10 mg tablet 10 mg PO BEDTIME PRN (Reason: muscle spasm) Qty: 10 0RF methylprednisolone [Medrol (Rangel)] 4 mg tablets,dose pack See Rx Instructions .ROUTE .COMPLEX Qty: 21 0RF Rx Instructions: for 6 days No Action atorvastatin 40 mg tablet 40 mg PO DAILY pramipexole 0.125 mg tablet 0.125 mg PO BEDTIME Qty: 30 0RF Rx Instructions: Initial: 0.125 mg once daily 2 to 3 hours before bedtime. Daily dose may be increased based on response and tolerability to 0.25 mg after 4 to 7 days. omega-3 fatty acids 1,250 mg capsule 1,250 mg PO DAILY cholecalciferol (vitamin D3) 25 mcg (1,000 unit) tablet 25 mcg PO DAILY sumatriptan succinate 25 mg tablet See Rx Instructions PO .COMPLEX Qty: 30 0RF Rx Instructions: take 1 tab at onset of headache; if no relief may repeat 1 tab after at least 2 hrs; max = 4 tabs/24 hr PO atenolol 25 mg tablet 12.5 mg PO DAILY aspirin 81 mg 81 mg PO DAILY hkyeqrasyw-vhirvycncnhmv-[id number] [Fioricet] 50-300-40 mg capsule 1 cap PO Q4-6H PRN (Reason: pain) Qty: 14 0RF Referrals: Lana Hays DO [Primary Care Provider] - Stand Alone Forms: Patient Portal/API/Survey
[2024-11-16] MEDS: LIDOCAINE 5% PATCH 1 EACH TOP (02:26)
[2024-11-16] MEDS: diazePAM 10 MG/2 ML SYRINGE 3 MG IV (02:27)
[2024-11-16] MEDS: ACETAMINOPHEN IV 1,000 MG/100 ML VIAL 400 MG IV (02:27)
[2024-11-16] MEDS: KETOROLAC 30 MG/ML VIAL 15 MG IV (02:27)
--- NOTE | 2024-11-16 03:44 | EKG_ITS ---
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
--- NOTE | 2024-11-16 03:45 | PC.NURSE ---
Labs drawn from existing IV line without difficulty
[2024-11-16 03:53] LABS: Add Manual Diff / Slide Review NO; Basophils Absolute Auto 0 /uL (0-100); Eosinophils Absolute Auto 300 /uL (0-450); Eosinophils Percent Auto 6.3 % (2-4); Hematocrit 40.5 % (36-46); Hemoglobin 13.9 g/dL (12.0-16.0); Lymphocytes Absolute Auto 1100 /uL (1100-4500); Lymphocytes Percent Auto 23.3 % (25-40); Mean Corpuscular HGB Conc 34.3 % (30-36); Mean Corpuscular Hemoglobin 32.2 PG (26-34); Mean Corpuscular Volume 93.9 fL (80-100); Monocytes Absolute Auto 500 /uL (0-900); Monocytes Percent Auto 11.2 % (3-14); Neutrophils Absolute Auto 2700 /uL (1500-7000); Neutrophils Percent Auto 58.2 % (50-75); Platelet Count 181 X10^3/uL (150-400); Red Blood Cell Count 4.31 X10^6/uL (4.0-5.2); Red Cell Distribution Width 12.8 % (11.6-14.8); White Blood Cell Count 4.7 X10^3/uL (4.5-11.0)
[2024-11-16 04:03] LABS: Alanine Aminotransferase 20 IU/L (<35); Albumin 3.7 g/dL (3.5-5.0); Albumin Globulin Ratio 1.5 (1.0-2.8); Alkaline Phosphatase 51 U/L (38-126); Aspartate Aminotransferase 27 IU/L (14-36); BUN Creatinine Ratio 26.8 (6-22); Bilirubin Total 0.3 mg/dL (0.2-1.3); Blood Urea Nitrogen 22 mg/dL (7-17); Calcium 8.9 mg/dL (8.4-10.2); Carbon Dioxide 25 mmol/L (22-32); Chloride 106 mmol/L (98-107); Creatine Kinase 113 U/L (30-135); Estimated Glomerular Filt Rate > 60 mL/min (>60); Globulin 2.5 g/dL (1.7-4.1); Glucose 103 mg/dL (80-110); HEMOLYSIS 28 (0-50); Potassium 4.2 mmol/L (3.4-5.1); Sodium 137 mmol/L (137-145); Total Protein 6.2 g/dL (6.3-8.2)
[2024-11-16 04:14] LABS: D Dimer 730 ng/ml (<500); Troponin I < 0.012 ng/mL (0.01-0.034)
== END 2024-11-16 04:41 | disposition home or self-care (01) ==
PROVIDERS: Emergency Provider Emergency Medicine; PCP Family Medicine
DX: M62.830 Muscle spasm of back (principal); I25.2 Old myocardial infarction; I25.10 Atherosclerotic heart disease of native coronary artery without angina pectoris; R00.1 Bradycardia, unspecified
CPT/HCPCS: 80053; 81003; 82550; 84484; 85025; 85379; 93005; 96365; 96375; 99283; 99284; J0134; J1885; J3360

== ENCOUNTER → 2024-12-02 15:27 | Outpatient (CLI) | payer MEDICARE, SELFPAY ==
[2023-10-09 10:55] VITALS: BMI 26.7
--- NOTE | 2024-12-02 15:28 | DI.MG.S_ITS ---
BILATERAL DIGITAL SCREENING MAMMOGRAM 3D/2D WITH CAD: 12/02/2024 CLINICAL: Routine screening. Family history of breast cancer. Comparison is made to exams dated: 11/18/2023 mammogram, 09/17/2022 mammogram, and 08/21/2021 mammogram - [facility]. The breasts are heterogeneously dense, which may obscure small masses (category c / 51-75% glandular tissue). Current study was also evaluated with a Computer Aided Detection (CAD) system. There are benign calcifications in the left breast. No significant masses, calcifications, or other findings are seen in either breast. There has been no significant interval change. IMPRESSION: BENIGN There is no mammographic evidence of malignancy. A 1 year screening mammogram is recommended. Based on the Tyrer Cuzick model (a risk assessment model) the patient's lifetime risk is 4.8% and her 10 year risk is 0.0%. According to the ACR, ACS, and NCCN guidelines, an annual breast MRI exam along with mammogram is recommended if the patient's lifetime risk is 20% or greater. This exam was interpreted at Station ID: [id number]. NOTE: For mammograms, a report in lay terms will be sent to the patient. Approximately 15% of breast malignancies will not be visualized mammographically. In the management of a palpable breast mass, a negative mammogram must not discourage biopsy of a clinically suspicious lesion. Electronically Signed By: Alexandru royal/le:12/03/2024 07:24:44 letter sent: Normal Exam ACR BI-RADS Category 2: Benign
== END ==
PROVIDERS: PCP Family Medicine; Referring Provider Family Medicine; Visit Provider Family Medicine
DX: Z12.31 Encounter for screening mammogram for malignant neoplasm of breast (principal); Z80.3 Family history of malignant neoplasm of breast; R92.333 Mammographic heterogeneous density, bilateral breasts
CPT/HCPCS: 77063; 77067

== ENCOUNTER 2025-01-13 08:35 | Emergency (ER) | payer MEDICARE, SELFPAY ==
[2023-10-09 10:55] VITALS: BMI 26.7
[2025-01-13] VITALS (14 sets, daily range): BP systolic 132–181; BP diastolic 55–79; PULSE 62–80; RESP 12–27; TEMP 36.9; O2SAT 94–98; BMI 25.8
--- NOTE | 2025-01-13 08:46 | EKG_ITS ---
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
--- NOTE | 2025-01-13 09:06 | DI.CT.S_ITS ---
PROCEDURE: CT HEAD/BRAIN WO CON INDICATIONS: numbness left side now resolved TECHNIQUE: Noncontrast 4.5 mm thick angled axial sections acquired from the foramen magnum to the vertex, with coronal and sagittal reformats. For radiation dose reduction, the following was used: automated exposure control, adjustment of mA and/or kV according to patient size. COMPARISON: [facility], CT, CT HEAD/BRAIN WO CON, 01/27/2023, 13:23. FINDINGS: Image quality: Diagnostic. CSF spaces: Basal cisterns are patent. No extra-axial fluid collections. The ventricles are symmetric in size and shape. Brain: No intracranial bleeds or masses. There is cerebral volume loss for age, with resultant ventricular and sulcal prominence. There are periventricular and deep white matter chronic small vessel ischemic changes. There is intracranial internal carotid artery atherosclerosis. Skull and face: Calvarium and visualized facial bones appear intact, without suspicious lesions. Sinuses: Visualized sinuses and mastoids are clear. IMPRESSION: 1. CT head without acute intracranial abnormalities or acute calvarial fractures. 2. Age-related senescent changes and sequela of chronic small vessel ischemic disease. Dictated by: Alexandru Barreto M.D. on 01/13/2025 at 9:30 Approved by: Alexandru Barreto M.D. on 01/13/2025 at 9:35
[2025-01-13 09:21] LABS: Add Manual Diff / Slide Review NO; Basophils Absolute Auto 100 /uL (0-100); Basophils Percent Auto 1.1 % (0-2); Eosinophils Absolute Auto 400 /uL (0-450); Eosinophils Percent Auto 7.5 % (2-4); Hematocrit 40.4 % (36-46); Hemoglobin 14.1 g/dL (12.0-16.0); Lymphocytes Absolute Auto 1100 /uL (1100-4500); Lymphocytes Percent Auto 21.6 % (25-40); Mean Corpuscular HGB Conc 34.8 % (30-36); Mean Corpuscular Hemoglobin 32.1 PG (26-34); Mean Corpuscular Volume 92.3 fL (80-100); Monocytes Absolute Auto 400 /uL (0-900); Monocytes Percent Auto 7.9 % (3-14); Neutrophils Absolute Auto 3300 /uL (1500-7000); Neutrophils Percent Auto 61.9 % (50-75); Platelet Count 227 X10^3/uL (150-400); Red Blood Cell Count 4.38 X10^6/uL (4.0-5.2); White Blood Cell Count 5.3 X10^3/uL (4.5-11.0)
[2025-01-13 09:22] LABS: Prothrombin Time 11.3 SECONDS (9.4-12.5)
--- NOTE | 2025-01-13 09:22 | ED_ITS ---
HPI - Neuro Symptoms/Deficit General Chief Complaint: Neuro Symptoms/Deficit Stated Complaint: Left hand tingling, Numb moving up arm Time Seen by Provider: 01/13/25 09:06 Source: patient and family Mode of arrival: Ambulatory History of Present Illness HPI Narrative: Patient is a 79-year-old female history of TIA coronary artery disease hypertension hyperlipidemia presenting today with left-sided numbness. Reports it started around 8:00 a.m. initially started in her fingertips went upper left arm into her neck and her face. He then went down into her leg. Lasted for 10- 15 minutes and has completely resolved. She had no weakness no difficulty speaking no slurring of speech or any other symptoms. Related Data Home Medications Medication Instructions Recorded Confirmed atorvastatin 40 mg tablet 40 mg PO DAILY 12/11/19 09/24/24 atenolol 25 mg tablet 12.5 mg PO DAILY 06/24/22 09/24/24 aspirin 81 mg PO DAILY 06/25/22 09/24/24 cholecalciferol (vitamin D3) 25 25 mcg PO DAILY 08/15/23 09/24/24 mcg (1,000 unit) tablet omega-3 fatty acids 1,250 mg 1,250 mg PO DAILY 08/15/23 09/24/24 capsule Previous Rx's Medication Instructions Recorded aafkxbwmjc-bisgmjyomtrgq-jpfdizbv 1 cap PO Q4-6H PRN pain #14 caps 01/27/23 50 mg-300 mg-40 mg capsule (Fioricet) pramipexole 0.125 mg tablet 0.125 mg PO BEDTIME #30 tabs 04/06/24 sumatriptan succinate 25 mg tablet See Rx Instructions PO .COMPLEX 09/24/24 #30 tabs cyclobenzaprine 10 mg tablet 10 mg PO BEDTIME PRN muscle spasm 11/16/24 #10 tabs methylprednisolone 4 mg tablets in See Rx Instructions PO .COMPLEX 11/16/24 a dose pack (Medrol (Rangel)) #21 ea Allergies Allergy/AdvReac Type Severity Reaction Status Date / Time No Known Allergies Allergy Verified 09/24/24 15:19 Patient History Medical History Hyperkalemia Diarrhea Sprain of right thumb Left wrist fracture Pustule of nostril Vaginal irritation TIA (transient ischemic attack) Coronary artery disease Surgical History H/O total knee replacement Family History Mother Congenital heart disease Family/Other Cancer Social History household members: spouse alcohol intake frequency: 0-2 drinks per day Exam Initial Vital Signs Initial Vital Signs: Vital Signs Pulse Rate 80 01/13/25 08:41 Pulse Oximetry 94 01/13/25 08:41 GENERAL: Alert pleasant year female and in no acute distress. HEENT: Head atraumatic,EOMI, pupils reactive, face symmetric, moist mucous membranes CARDIOVASCULAR: Regular rate and rhythm without murmurs, rubs or gallops. RESPIRATORY: Breath sounds equal bilaterally, no wheezes rales or rhonchi. ABDOMEN: Soft, nontender. Normoactive bowel sounds all 4 quadrants. No guarding or rebound. EXTREMITIES: Normal range of motion, no clubbing or edema. Neurovascularly intact NEUROLOGICAL: Alert and oriented x4.Normal gait and speech. Cranial nerves II through XII grossly intact. Good fmjipy-ja-ceja, good dzfn-ds-gihg, strength equal bilaterally, no dysarthria or aphasia, sensation in tact to soft touch bilaterally, no visual changes, no facial droop SKIN: Warm, dry, no laceration, no petechiae, no rashes or lesions. Scores NIH Stroke Scale Level of Conciousness: Alert, keenly responsive Ask month/age: Answers both questions correctly. Open/close eyes, close hand: Performs both tasks correctly Best gaze horizontal: Normal Visual dunlap: No visual loss Facial palsy: Normal symetrical movement Left arm drift: No drift for full 10 sec Right arm drift: No drift for full 10 sec Left leg drift: No drift for full 5 sec Right leg drift: No drift for full 5 sec Limb ataxia: Absent Sensory on face/arms/legs: Normal, no sensory loss Best language: No aphasia, normal Dysarthria: Normal Extinction or inattention: No abnormality Total NIH Stroke scale score: 0 Course Orders Ordered: ED Orders 01/13/25 09:00 Complete Blood Count AUTO DIFF Stat Comprehensive Metabolic Panel Stat Ethanol (ETOH) Stat PTT Partial Thromboplastin Mega Stat Prothrombin Time INR Stat Troponin & CK Cardiac Panel Stat 01/13/25 09:06 CT head/brain wo con Stat 01/13/25 09:11 EKG-12 Lead Stat 01/13/25 09:25 CT angio head and neck Stat 01/13/25 09:30 COVID19 -Nasal RAPID Stat 01/13/25 09:34 Urinalysis and Microscopic Stat Urine Drug Screen, Rapid Stat 01/13/25 10:19 MR head/brain wo con Stat Discontinued Medications Aspirin (Aspirin 81 Mg Chew Tab) 324 mg PO NOW ONE Stop: 01/13/25 12:59 Last Admin: 01/13/25 13:02 Dose: 324 mg Documented By: DREW Lorazepam (Lorazepam 2 Mg/Ml Inj) 0.5 mg IV NOW ONE Stop: 01/13/25 10:23 Last Admin: 01/13/25 11:25 Dose: 0.5 mg Documented By: DREW(2) Vital Signs Vital signs: Vital Signs - 8 hr 01/13/25 08:41 01/13/25 08:43 01/13/25 08:43 Temperature Pulse Rate 80 71 Respiratory Rate Blood Pressure 181/79 H Pulse Oximetry 94 96 Oxygen Delivery Method 01/13/25 08:55 01/13/25 09:00 01/13/25 09:04 Temperature 98.4 F Pulse Rate 71 65 Respiratory Rate 18 27 H Blood Pressure 181/79 H 147/67 H Pulse Oximetry 95 95 Oxygen Delivery Method Room Air 01/13/25 09:04 01/13/25 09:26 01/13/25 09:26 Temperature Pulse Rate 64 70 Respiratory Rate 24 12 Blood Pressure 157/67 H Pulse Oximetry 94 95 Oxygen Delivery Method 01/13/25 09:30 01/13/25 09:41 01/13/25 09:41 Temperature Pulse Rate 62 69 Respiratory Rate 20 Blood Pressure 148/66 H Pulse Oximetry 97 97 Oxygen Delivery Method 01/13/25 09:46 01/13/25 09:46 01/13/25 10:00 Temperature Pulse Rate 66 Respiratory Rate Blood Pressure 135/62 136/55 L Pulse Oximetry 98 Oxygen Delivery Method 01/13/25 10:00 01/13/25 10:15 01/13/25 10:15 Temperature Pulse Rate 64 65 Respiratory Rate 19 Blood Pressure 132/62 Pulse Oximetry 98 Oxygen Delivery Method 01/13/25 10:30 01/13/25 10:30 01/13/25 10:45 Temperature Pulse Rate 67 Respiratory Rate Blood Pressure 149/67 H 159/72 H Pulse Oximetry 98 Oxygen Delivery Method 01/13/25 10:45 01/13/25 13:22 Temperature Pulse Rate 68 66 Respiratory Rate 23 18 Blood Pressure 150/70 H Pulse Oximetry 98 98 Oxygen Delivery Method Room Air MDM - Neuro Symptoms/Deficit Lab Data 01/13/25 09:00 01/13/25 09:00 Labs: Lab Results 01/13/25 01/13/25 01/13/25 Range/Units 09:00 09:30 09:34 WBC 5.3 (4.5-11.0) X10^3/uL RBC 4.38 (4.0-5.2) X10^6/uL Hgb 14.1 (12.0-16.0) g/dL Hct 40.4 (36-46) % MCV 92.3 (80-100) fL MCH 32.1 (26-34) PG MCHC 34.8 (30-36) % RDW 13.0 (11.6-14.8) % Plt Count 227 (150-400) X10^3/uL Neut % (Auto) 61.9 (50-75) % Lymph % (Auto) 21.6 L (25-40) % [place] % (Auto) 7.9 (3-14) % Eos % (Auto) 7.5 H (2-4) % Baso % (Auto) 1.1 (0-2) % Neut # (Auto) 3300 (8369-3943) /uL Lymph # (Auto) 1100 (7636-4077) /uL [place] # (Auto) 400 (0-900) /uL Eos # (Auto) 400 (0-450) /uL Baso # (Auto) 100 (0-100) /uL PT 11.3 (9.4-12.5) SECONDS INR 1.0 (0.9-1.3) APTT 32 (25.1-36.5) SECONDS Sodium 138 (137-145) mmol/L Potassium 4.3 (3.4-5.1) mmol/L Chloride 104 (98-107) mmol/L Carbon Dioxide 27 (22-32) mmol/L BUN 19 H (7-17) mg/dL Creatinine 0.91 (0.52-1.04) mg/dL Estimated GFR > 60 (>60) mL/min BUN/Creatinine Ratio 20.9 (6-22) Glucose 111 H (80-110) mg/dL Calcium 9.2 (8.4-10.2) mg/dL Total Bilirubin 0.6 (0.2-1.3) mg/dL AST 30 (14-36) IU/L ALT 23 (<35) IU/L Alkaline Phosphatase 63 (38-126) U/L Total Creatine Kinase 90 (30-135) U/L Troponin I < 0.012 (0.01-0.034) ng/mL Total Protein 6.8 (6.3-8.2) g/dL Albumin 4.0 (3.5-5.0) g/dL Globulin 2.8 (1.7-4.1) g/dL Albumin/Globulin Ratio 1.4 (1.0-2.8) Urine Color Yellow Urine Appearance Clear Urine pH 6.0 (4.5-8.0) Ur Specific [place] <=1.005 (1.000-1.035) Urine Protein Negative (Negative) Urine Glucose (UA) Negative (Negative) g/dL Urine Ketones Negative (NEGATIVE) Urine Occult Blood Negative (Negative) Urine Nitrate Negative (Negative) Urine Bilirubin Negative (NEGATIVE) Urine Urobilinogen 0.2 (0.2) E.U./dL Ur Leukocyte Esterase Negative (NEGATIVE) Urine RBC None seen (0-5/HPF) Urine WBC None seen (0-5/HPF) Ur Squamous Epith Cells None seen (0-5/HPF) Urine Bacteria None seen (None) Ur Culture Indicated? Cult not indicated Vol Urine Centrifuged 10ml (spun) U Opiates 300ng/mL cut Negative (Negative) Ur Oxycodone Screen Negative (Negative) Urine Methadone Screen Negative (Negative) Ur Barbiturates Screen Negative (Negative) U Tricyclic Antidepress Negative (Negative) Ur Phencyclidine Scrn Negative (Negative) Ur Amphetamines Screen Negative (Negative) U Methamphetamines Scrn Negative (Negative) Ur MDMA Scrn (Ecstasy) Negative (Negative) U Benzodiazepines Scrn Negative (Negative) Urine Cocaine Screen Negative (Negative) U Marijuana (THC) Screen Negative (Negative) Urine Specific [place] (Normal) Ethyl Alcohol < 10 ( - 10) mg/dL Ur Creatinine (Normal) SARS-CoV-2 (PCR) Negative (Negative) 01/13/25 Range/Units 09:34 WBC (4.5-11.0) X10^3/uL RBC (4.0-5.2) X10^6/uL Hgb (12.0-16.0) g/dL Hct (36-46) % MCV (80-100) fL MCH (26-34) PG MCHC (30-36) % RDW (11.6-14.8) % Plt Count (150-400) X10^3/uL Neut % (Auto) (50-75) % Lymph % (Auto) (25-40) % [place] % (Auto) (3-14) % Eos % (Auto) (2-4) % Baso % (Auto) (0-2) % Neut # (Auto) (1263-1594) /uL Lymph # (Auto) (7460-1103) /uL [place] # (Auto) (0-900) /uL Eos # (Auto) (0-450) /uL Baso # (Auto) (0-100) /uL PT (9.4-12.5) SECONDS INR (0.9-1.3) APTT (25.1-36.5) SECONDS Sodium (137-145) mmol/L Potassium (3.4-5.1) mmol/L Chloride (98-107) mmol/L Carbon Dioxide (22-32) mmol/L BUN (7-17) mg/dL Creatinine (0.52-1.04) mg/dL Estimated GFR (>60) mL/min BUN/Creatinine Ratio (6-22) Glucose (80-110) mg/dL Calcium (8.4-10.2) mg/dL Total Bilirubin (0.2-1.3) mg/dL AST (14-36) IU/L ALT (<35) IU/L Alkaline Phosphatase (38-126) U/L Total Creatine Kinase (30-135) U/L Troponin I (0.01-0.034) ng/mL Total Protein (6.3-8.2) g/dL Albumin (3.5-5.0) g/dL Globulin (1.7-4.1) g/dL Albumin/Globulin Ratio (1.0-2.8) Urine Color Urine Appearance Urine pH Normal (4.5-8.0) Ur Specific [place] (1.000-1.035) Urine Protein (Negative) Urine Glucose (UA) (Negative) g/dL Urine Ketones (NEGATIVE) Urine Occult Blood (Negative) Urine Nitrate (Negative) Urine Bilirubin (NEGATIVE) Urine Urobilinogen (0.2) E.U./dL Ur Leukocyte Esterase (NEGATIVE) Urine RBC (0-5/HPF) Urine WBC (0-5/HPF) Ur Squamous Epith Cells (0-5/HPF) Urine Bacteria (None) Ur Culture Indicated? Vol Urine Centrifuged U Opiates 300ng/mL cut (Negative) Ur Oxycodone Screen (Negative) Urine Methadone Screen (Negative) Ur Barbiturates Screen (Negative) U Tricyclic Antidepress (Negative) Ur Phencyclidine Scrn (Negative) Ur Amphetamines Screen (Negative) U Methamphetamines Scrn (Negative) Ur MDMA Scrn (Ecstasy) (Negative) U Benzodiazepines Scrn (Negative) Urine Cocaine Screen (Negative) U Marijuana (THC) Screen (Negative) Urine Specific [place] Normal (Normal) Ethyl Alcohol ( - 10) mg/dL Ur Creatinine Normal (Normal) SARS-CoV-2 (PCR) (Negative) Point of Care Testing Glucose POC 104 ECG Data Attestation: I personally reviewed and interpreted this ECG as follows: Prior ECG tracings: not available for review Interpretation: Normal sinus rhythm rate 66 OR interval 130 QRS [address] changes no T- wave inversion MDM Narrative Medical decision making narrative: MDM CC: Tingling left side now resolved Complicating co-morbidities: Coronary artery disease hypertension hyperlipidemia Data collected from: Patient Medical records reviewed: PCP note reviewed, history of TIA but many years ago Differential considered: TIA CVA intracranial hemorrhage, neuropathy Exam documented above, pertinent findings include: NIH stroke scale 0 awake alert oriented 79-year-old female Lab Test results independently reviewed as above. Pertinent findings: CBC no leukocytosis no anemia CMP no electrolyte abnormality creatinine 0.91 Troponin negative Urinalysis negative Tox screen negative Independently reviewed EKG as above Sinus rhythm arrhythmia mild artifact noted Imaging studies independently reviewed: CT noncontrast head no acute intracranial hemorrhage CT angio no large vessel occlusion MRI no evidence of CVA or a TIA Treatments: Aspirin 325, Ativan for MRI Re-evaluations: No recurrence of symptoms Discussion: Patient is 79-year-old female who presents today with numbness that started in her left fingertips went up to her neck and then down her leg. Symptoms lasted 10 minutes. She had no weakness. Workup in the emergency department right overall negative. Had extensive imaging including MRI which was negative. Instructed her to take aspirin follow up with primary care provider. Also discussed with both her and her has been that if symptoms should return or worsen in any way at any time then she should return to the emergency department immediately Discharge Plan Departure Patient Disposition: Home Clinical Impression: Neuropathy Instructions: DI for Transient Ischemic Attack Activity Restrictions/Additional Instructions: *You have been diagnosed with neuropathy *What to do: At this time please follow-up with PCP take aspirin daily *Continue to take medications as directed Aspirin 325 *Follow up with your primary care provider in 2-3 days or call [phone] Hays is office to schedule follow up appointment *Return to ER if you should have increasing weakness numbness chest pain shortness of breath or any new, worsening or concerning symptoms Prescriptions: No Action atorvastatin 40 mg tablet 40 mg PO DAILY pramipexole 0.125 mg tablet 0.125 mg PO BEDTIME Qty: 30 0RF Rx Instructions: Initial: 0.125 mg once daily 2 to 3 hours before bedtime. Daily dose may be increased based on response and tolerability to 0.25 mg after 4 to 7 days. omega-3 fatty acids 1,250 mg capsule 1,250 mg PO DAILY cholecalciferol (vitamin D3) 25 mcg (1,000 unit) tablet 25 mcg PO DAILY sumatriptan succinate 25 mg tablet See Rx Instructions PO .COMPLEX Qty: 30 0RF Rx Instructions: take 1 tab at onset of headache; if no relief may repeat 1 tab after at least 2 hrs; max = 4 tabs/24 hr PO atenolol 25 mg tablet 12.5 mg PO DAILY aspirin 81 mg 81 mg PO DAILY imsoaokvyy-whutorgqaxhih-fdws [Fioricet] 50-300-40 mg capsule 1 cap PO Q4-6H PRN (Reason: pain) Qty: 14 0RF cyclobenzaprine 10 mg tablet 10 mg PO BEDTIME PRN (Reason: muscle spasm) Qty: 10 0RF methylprednisolone [Medrol (Rangel)] 4 mg tablets,dose pack See Rx Instructions .ROUTE .COMPLEX Qty: 21 0RF Rx Instructions: for 6 days Referrals: Lana Hays DO [Primary Care Provider] - Stand Alone Forms: Patient Portal/API/Survey
[2025-01-13 09:25] LABS: PTT Partial Thromboplastin Tim 32 SECONDS (25.1-36.5)
--- NOTE | 2025-01-13 09:25 | DI.CT.S_ITS ---
PROCEDURE: CT ANGIO HEAD AND NECK INDICATIONS: numbness left side now resolved TECHNIQUE: After the administration of intravenous contrast, 1 mm thick sections acquired from the aortic arch through the [place]. 3-dimensional podqvbi-xiiwujhdn-aqrainzshe (MIP) and/or volume rendering reformats were acquired of the central intracranial vasculature and neck separately. For radiation dose reduction, the following was used: automated exposure control, adjustment of mA and/or kV according to patient size. COMPARISON: [facility], CT, CT ANGIO HEAD AND NECK, 06/24/2022, 15:59. FINDINGS: Image quality: Diagnostic. BRAIN: See separately dictated CT brain report of 01/13/[address] ANGIOGRAPHY: Anterior circulation: Intracranial internal carotid arteries are normal in size and flow. The flow within the paired anterior cerebral arteries is normal and symmetric. The flow within the middle cerebral arteries is normal and symmetric. The anterior communicating artery is seen. No aneurysms are seen. Posterior circulation: Visualized portions of the vertebral arteries demonstrate normal caliber, and join to form a normal appearing basilar artery. Flow within the posterior cerebral arteries is normal and symmetric. No aneurysms are seen. NECK CT ANGIOGRAPHY: Carotid system: The great vessels demonstrate a conventional anatomy as they arise from the aortic arch. The origins of the common carotid arteries appear patent. The common carotid arteries demonstrate normal caliber and courses. The bifurcation regions are both widely patent. The internal carotid arteries demonstrate normal calibers and courses. Posterior circulation: The origins of the vertebral arteries both appear widely patent. The more superior extracranial portions of both vertebral arteries also demonstrate normal courses and calibers. They join to form a normal appearing basilar artery. Soft tissues: Visualized neck soft tissues demonstrate no suspicious abnormalities. Bones: No suspicious bony lesions. Visualized cervical spine appears normally aligned. IMPRESSION: No significant intracranial arterial abnormality is seen. No significant abnormality is seen within the arteries of the neck. Any quantitative measurements of stenosis were performed using NASCET criteria. Dictated by: Harika Chow M.D. on 01/13/2025 at 9:40 Approved by: Harika Chow M.D. on 01/13/2025 at 9:41
[2025-01-13 09:27] LABS: Alanine Aminotransferase 23 IU/L (<35); Albumin Globulin Ratio 1.4 (1.0-2.8); Alkaline Phosphatase 63 U/L (38-126); Aspartate Aminotransferase 30 IU/L (14-36); BUN Creatinine Ratio 20.9 (6-22); Bilirubin Total 0.6 mg/dL (0.2-1.3); Blood Urea Nitrogen 19 mg/dL (7-17); Calcium 9.2 mg/dL (8.4-10.2); Carbon Dioxide 27 mmol/L (22-32); Chloride 104 mmol/L (98-107); Creatine Kinase 90 U/L (30-135); Estimated Glomerular Filt Rate > 60 mL/min (>60); Ethanol (ETOH) < 10 mg/dL; Globulin 2.8 g/dL (1.7-4.1); Glucose 111 mg/dL (80-110); HEMOLYSIS < 15 (0-50); Potassium 4.3 mmol/L (3.4-5.1); Sodium 138 mmol/L (137-145); Total Protein 6.8 g/dL (6.3-8.2)
[2025-01-13 09:38] LABS: Troponin I < 0.012 ng/mL (0.01-0.034)
[2025-01-13 09:47] LABS: UR Morphine/Opiate cutoff 300 Negative (Negative); Ur Creatinine Normal (Normal); Ur Specific Gravity Normal (Normal); Urine Amphetamines Negative (Negative); Urine Barbiturates Negative (Negative); Urine Benzodiazepines Negative (Negative); Urine Cocaine Negative (Negative); Urine MDMA Negative (Negative); Urine Methadone Negative (Negative); Urine Methamphetamines Negative (Negative); Urine Oxycodone Negative (Negative); Urine Phencyclidine Negative (Negative); Urine Tetrahydrocannabinol Negative (Negative); Urine Tricyclic Antidepressant Negative (Negative); Urine pH Normal (Normal)
[2025-01-13 09:48] LABS: Appearance Urine UA CLEAR; Bilirubin Urine UA NEGATIVE (NEGATIVE); Color Urine UA YELLOW; Glucose Urine UA NEGATIVE (Negative); Ketones Urine UA NEGATIVE (NEGATIVE); Leukocyte Esterase Urine UA NEGATIVE (NEGATIVE); Nitrite Urine UA NEGATIVE (Negative); Occult Blood Urine UA NEGATIVE (Negative); Protein Urine UA NEGATIVE (Negative); Specific Gravity Urine UA <=1.005 (1.000-1.035); Urine Volume 10mL (spun); Urobilinogen Urine UA 0.2 E.U./dL (0.2)
[2025-01-13 09:49] LABS: Bacteria Urine None Seen; Culture Indicated Urine Cult Not Indicated; RBC Urine None Seen (0-5/HPF); Squamous Epithelial Cell Urine None Seen (0-5/HPF); WBC Urine None Seen (0-5/HPF)
[2025-01-13 09:51] LABS: COVID19 -Nasal RAPID Negative (Negative)
--- NOTE | 2025-01-13 10:19 | DI.MRI.S_ITS ---
PROCEDURE: MR HEAD/BRAIN WO CON INDICATIONS: left side tingling TECHNIQUE: Non-contrast axial T1 spin echo, axial T2 fast spin echo, sagittal and axial FLAIR, coronal T2 fast spin echo, axial gradient echo, axial diffusion and ADC through the brain. COMPARISON: [facility], CT, CT ANGIO HEAD AND NECK, 01/13/2025, 9:19. [facility], CT, CT HEAD/BRAIN WO CON, 01/13/2025, 9:19. [facility], MR, MR HEAD/BRAIN WO CON, 06/25/2022, 9:13. FINDINGS: Image quality: Excellent. CSF spaces: Ventricles appear symmetric in size and shape. Basal cisterns are patent. No extra-axial fluid collections. Brain: No intracranial bleeds or mass effects. There is cerebral volume loss for age. There are periventricular and deep white matter chronic small vessel ischemic changes. Brainstem appears normal. Diffusion-weighted images show no acute infarct. No chronic ischemic insults. Normal intravascular flow voids are present. Skull and face: Calvarial bone marrow is normal in signal. Orbits are normal. Sinuses: Sinuses and mastoids are clear. IMPRESSION: 1. No acute intracranial process. 2. Moderate atrophy and chronic microvascular ischemic changes. Dictated by: Harika Chow M.D. on 01/13/2025 at 12:19 Approved by: Harika Chow M.D. on 01/13/2025 at 12:20
[2025-01-13] MEDS: LORazepam 2 MG/ML INJ 0.5 MG IV (11:25)
[2025-01-13] MEDS: ASPIRIN 81 MG CHEW TAB 324 MG PO (13:02)
== END 2025-01-13 13:24 | disposition home or self-care (01) ==
PROVIDERS: Emergency Provider Emergency Medicine; PCP Family Medicine
DX: G62.9 Polyneuropathy, unspecified (principal); R29.700 NIHSS score 0; Z86.73 Personal history of transient ischemic attack (TIA), and cerebral infarction without residual deficits
CPT/HCPCS: 36415; 70450; 70496; 70498; 70551; 80053; 80305; 80320; 81001; 82550; 82962; 84484; 85025; 85610; 85730; 87635; 93005; 96374; 99285; J2060; Q9967

== ENCOUNTER → 2025-03-30 09:20 | Outpatient (CLI) | payer MEDICARE, SELFPAY ==
[2025-01-14 17:10] VITALS: BMI 26.7
[2025-03-30 10:47] LABS: Cholesterol 143 mg/dL (140-199); HDL Cholesterol 65 mg/dL (40-60); LDL Cholesterol Calculated 52 mg/dL (<100); Triglycerides 131 mg/dL (35-150)
== END ==
LOC: LAB 09:22
PROVIDERS: PCP Family Medicine; Referring Provider Psychiatry & Neurology Neurology; Visit Provider Psychiatry & Neurology Neurology
DX: R20.0 Anesthesia of skin (principal)
CPT/HCPCS: 36415; 80061

== ENCOUNTER 2025-04-22 04:10 | Emergency (ER) | payer MEDICARE, SELFPAY ==
[2025-01-14 17:10] VITALS: BMI 26.7
[2025-04-22] VITALS (9 sets, daily range): BP systolic 152–176; BP diastolic 71–84; PULSE 55–62; RESP 14–17; TEMP 36.8; O2SAT 95–98; BMI 26.4
--- NOTE | 2025-04-22 04:21 | ED.GENADULT ---
HPI - General Adult General Chief complaint: Headache Stated complaint: migraine x 4 days Time Seen by Provider: 04/22/25 04:21 History of Present Illness HPI narrative: 79-year-old woman with a history of hypertension, hyperlipidemia, IA in 2001 with angioplasty, concern for TIA in January of 2025 with left-sided numbness eventual CT head CTA of the head and neck and MRI of the brain did not show obvious abnormalities. She had a fall in mid March landing forward on her face was, was seen in an emergency department while on vacation with a CT scan of her head at that time unremarkable. She is not anticoagulated. She comes in today complaining of headache that has been waxing and waning but never completely resolved over the last 3 days awoke her from sleep at about 330 this morning again. She describes it in the right side of her face, behind her eye almost to her ear. Severe pain without significant photophobia, no or, nausea associated with the pain but not preceding the pain. She has noted no recent fevers, cough, chills, no other trauma since that fall and CT scan in mid March. No skin changes or rashes to suggest zoster prodrome over the last couple of days. Within the last year or so she had had episodes of visual changes in 1 I associated with some word-finding difficulty eventually saw a neurologist who felt that this perhaps was an ocular migraine. She does not have significant history of headache, none really occurring until this most recent year. She does have a prescription for Fioricet, has taken it a couple times over these last couple of days but it is not working with her current episode of head pain. Not complaining of palpitations, dyspnea, abdominal pain, no neurologic symptoms beyond the focal right sided headache Related Data Home Medications ?Medication ?Instructions ?Recorded ?Confirmed cholecalciferol (vitamin D3) 25 25 mcg PO DAILY 08/15/23 04/19/25 mcg (1,000 unit) tablet omega-3 fatty acids 1,250 mg 1,250 mg PO DAILY 08/15/23 04/19/25 capsule aspirin 81 mg tablet,delayed 81 mg PO DAILY 01/27/25 04/19/25 release (Adult Low Dose Aspirin) atorvastatin 20 mg tablet 20 mg PO DAILY 01/27/25 04/19/25 omeprazole 10 mg capsule,delayed 10 mg PO DAILY 01/27/25 04/19/25 release Previous Rx's ?Medication ?Instructions ?Recorded asaakztvbd-ooasyjbgdmtky-ppcdtose 1 cap PO Q4-6H PRN pain #14 caps 01/27/23 50 mg-300 mg-40 mg capsule (Fioricet) lidocaine 4 % topical gel 1 applic topical ONCE #10 grams 04/13/25 Allergies Allergy/AdvReac Type Severity Reaction Status Date / Time No Known Allergies Allergy Verified 04/22/25 04:27 Review of Systems Review of Systems Narrative: Pertinent positive and negative findings as per HPI Patient History Medical History TIA (transient ischemic attack) Hyperkalemia Diarrhea Sprain of right thumb Left wrist fracture Pustule of nostril Vaginal irritation TIA (transient ischemic attack) Coronary artery disease Surgical History H/O total knee replacement Family History Mother Congenital heart disease Family/Other Cancer Social History household members: spouse Smoking Status: Never smoker alcohol intake frequency: 0-2 drinks per day Exam Initial Vital Signs Initial Vital Signs: Vital Signs Temperature 98.2 F 04/22/25 04:27 Pulse Rate 60 04/22/25 04:27 Respiratory Rate 17 04/22/25 04:27 Blood Pressure 167/84 H 04/22/25 04:27 Pulse Oximetry 97 04/22/25 04:27 Oxygen Delivery Method Room Air 04/22/25 04:27 General: Healthy appearing, in no acute distress. Able to give a complete and coherent history. Well-nourished well-developed HEENT: Moist mucous membranes, normal sclera with reactive pupils, no facial paresthesia, no scleral injection, no skin rashes in a V1 distribution. No tenderness over her temporal artery Respiratory: Lungs are clear to auscultation, no wheezing no rales no rhonchi. Full and symmetrical air movement Cardiac: Regular rate and rhythm no murmurs no bruits Neurologic: Grossly neurologically intact with no obvious asymmetries or abnormalities Extremities: No trauma, well perfused Psych: Cooperative, appropriate insight and affect Course Orders Ordered: ED Orders 04/22/25 04:22 CBC Auto Diff [Complete Blood Count AUTO DIFF] Stat CMP [Comprehensive Metabolic Panel] Stat CRP [C-Reactive Protein Quant] Stat Erythrocyte Sedimentation Rate Stat 04/22/25 04:41 CT head/brain wo con Stat Discontinued Medications Dexamethasone (Dexamethasone 10 Mg/Ml Vial) 10 mg IV NOW ONE Stop: 04/22/25 04:42 Last Admin: 04/22/25 04:48 Dose: 10 mg Documented By: JAYLENE Diphenhydramine HCl (Diphenhydramine 50 Mg/Ml Vial) 25 mg IV NOW ONE Stop: 04/22/25 04:42 Last Admin: 04/22/25 04:47 Dose: 25 mg Documented By: JAYLENE Droperidol (Droperidol 2.5 Mg/Ml Vial) 0.625 mg IV NOW ONE Stop: 04/22/25 04:42 Last Admin: 04/22/25 04:49 Dose: 0.625 mg Documented By: JAYLENE Sodium Chloride (Normal Saline 0.9%) 1,000 mls @ 1,000 mls/hr IV BOLUS ONE Stop: 04/22/25 05:40 Last Admin: 04/22/25 04:46 Dose: 1,000 mls/hr Documented By: JAYLENE Vital Signs Vital signs: Vital Signs - 8 hr 04/22/25 04:27 Temperature 98.2 F Pulse Rate 60 Respiratory Rate 17 Blood Pressure 167/84 H Pulse Oximetry 97 Oxygen Delivery Method Room Air Medical Decision Making Lab Data 04/22/25 04:22 04/22/25 04:22 Labs: Lab Results 04/22/25 Range/Units 04:22 WBC 4.9 (4.5-11.0) X10^3/uL RBC 4.43 (4.0-5.2) X10^6/uL Hgb 14.2 (12.0-16.0) g/dL Hct 40.5 (36-46) % MCV 91.3 (80-100) fL MCH 32.0 (26-34) PG MCHC 35.1 (30-36) % RDW 13.4 (11.6-14.8) % Plt Count 187 (150-400) X10^3/uL Neut % (Auto) 51.7 (50-75) % Lymph % (Auto) 31.8 (25-40) % Howard % (Auto) 8.7 (3-14) % Eos % (Auto) 6.6 H (2-4) % Baso % (Auto) 1.2 (0-2) % Neut # (Auto) 2500 (1981-7678) /uL Lymph # (Auto) 1600 (3923-8690) /uL Howard # (Auto) 400 (0-900) /uL Eos # (Auto) 300 (0-450) /uL Baso # (Auto) 100 (0-100) /uL ESR 9 (0-20) MM/HR Sodium 137 (137-145) mmol/L Potassium 4.2 (3.4-5.1) mmol/L Chloride 103 (98-107) mmol/L Carbon Dioxide 28 (22-32) mmol/L BUN 18 H (7-17) mg/dL Creatinine 0.84 (0.52-1.04) mg/dL Estimated GFR > 60 (>60) mL/min BUN/Creatinine Ratio 21.4 (6-22) Glucose 104 H (70-99) mg/dL Calcium 9.0 (8.4-10.2) mg/dL Total Bilirubin 0.4 (0.2-1.3) mg/dL AST 25 (14-36) IU/L ALT 16 (<35) IU/L Alkaline Phosphatase 62 (38-126) U/L C-Reactive Protein < 0.5 (<1.0) mg/dL Total Protein 6.8 (6.3-8.2) g/dL Albumin 4.0 (3.5-5.0) g/dL Globulin 2.8 (1.7-4.1) g/dL Albumin/Globulin Ratio 1.4 (1.0-2.8) MDM Narrative Medical decision making narrative: CC: 3 days right-sided headache Complicating co-morbidities: Recent diagnosis of ocular migraine, consideration of TIA with negative workup today, fall with facial trauma approximately 3 weeks ago, hyperlipidemia, Data collected from: patient Medical records reviewed: Workup for TIA including head CT, CT angiogram head and neck as well as brain MRI are reviewed. No pathology appreciated that time Differential considered: Trauma secondary to fall 3 weeks ago, subarachnoid hemorrhage, intracranial hemorrhage, migraine, infection, trigeminal neuralgia, zoster Exam documented above, pertinent findings include: Aside from the complaints of pain above her right brow and into the right temporal area exam is otherwise benign. She does not have any tenderness to the temporal artery area. No photosensitivity and no skin changes Lab Test results independently reviewed as above. Pertinent findings: CBC is unremarkable Chemistries are reassuring Imaging studies independently reviewed: CT scan of the head does not show intracranial hemorrhage or other pathology Treatments: 1 L of fluid, dexamethasone, droperidol, Benadryl Discussion: 79-year-old woman who was recently diagnosed with migraine headache. She has butalbital to use at home as needed. Three days of headache seems to be getting worse comes in for further evaluation. The description of the pain very much sounds migraine like however seems a bit unusual to be developing migraines at the age of 79. Possibility of infection, trauma, temporal arteritis, zoster prodrome or all entertained and seemed to not be related to her current issue. With rather classic migraine treatment her pain has resolved significantly. I did ask her to follow up with her neurologist. I also gave her information on trigeminal neuralgia to see if she feels like this fits the pattern of the pain that she has been experiencing. I do not suspect temporal arteritis at this time. She is currently pain-free feels that she can go home and get some sleep and she is discharged Discharge Plan Departure Patient Disposition: Home Clinical Impression: Migraine Qualifiers: Migraine type: unspecified Status migrainosus presence: without status migrainosus Intractability: not intractable Qualified Code(s): G43.909 - Migraine, unspecified, not intractable, without status migrainosus Instructions: DI for Migraine, DI for Trigeminal Neuralgia Activity Restrictions/Additional Instructions: Thank you for coming in tonight, I am glad that you are feeling better As we discussed, developing migraine headaches this late in life is somewhat unusual Your pain this evening responded to migraine treatment. Your blood work was reassuring, there was no sign of developing shingles, no indication of temporal arteritis and CT scan of your brain shows no trauma or intracranial bleeding. The possibility of trigeminal neuralgia is considered, I have given you some printed information on what this is to see if it fits with your pain pattern. I would encourage you to follow up with your neurologist. A neurologist is going to be the 1 to help sort out migraine, other pain syndromes and trigeminal neuralgia. If you find that you are getting worse or develop any new symptoms, please feel free to return to the emergency department for further evaluation. Prescriptions: No Action aspirin [Adult Low Dose Aspirin] 81 mg tablet,delayed release (DR/EC) 81 mg PO DAILY omeprazole 10 mg capsule,delayed release(DR/EC) 10 mg PO DAILY atorvastatin 20 mg tablet 20 mg PO DAILY omega-3 fatty acids 1,250 mg capsule 1,250 mg PO DAILY cholecalciferol (vitamin D3) 25 mcg (1,000 unit) tablet 25 mcg PO DAILY lidocaine 4 % gel 1 applic topical ONCE Qty: 10 0RF Rx Instructions: apply 1 inch or less to sore area around upper lip stitch 30-60 minutes prior to Saturday's appointment svjzxgyyld-iythptpizwlag-woxx [Fioricet] 50-300-40 mg capsule 1 cap PO Q4-6H PRN (Reason: pain) Qty: 14 0RF Referrals: Lana Hays DO [Primary Care Provider, Family Practice] Stand Alone Forms: Patient Portal/API
--- NOTE | 2025-04-22 04:41 | DI.CT.S_ITS ---
PROCEDURE: CT HEAD/BRAIN WO CON INDICATIONS: Severe right head pain TECHNIQUE: Noncontrast 4.5 mm thick angled axial sections acquired from the foramen magnum to the vertex, with coronal and sagittal reformats. For radiation dose reduction, the following was used: automated exposure control, adjustment of mA and/or kV according to patient size. COMPARISON: [facility], CT, CT HEAD/BRAIN WO CON, 01/13/2025, 9:19. FINDINGS: Image quality: Diagnostic. CSF spaces: Basal cisterns are patent. No extra-axial fluid collections. The ventricles are symmetric in size and shape. Brain: No intracranial bleeds or mass effect. There is cerebral volume loss, with resultant ventricular and sulcal prominence. There are periventricular and deep white matter chronic small vessel ischemic changes. There is intracranial internal carotid artery atherosclerosis. Skull and face: Calvarium and visualized facial bones appear intact, without suspicious lesions. Sinuses: Visualized sinuses and mastoids are clear. IMPRESSION: No acute intracranial pathology. Findings are concordant with preliminary interpretation provided by [facility]. Dictated by: Anthony Joseph M.D. on 04/22/2025 at 8:30 Approved by: Anthony Joseph M.D. on 04/22/2025 at 8:31
[2025-04-22] MEDS: SODIUM CHLORIDE 0.9% 1,000 ML 1000 ML IV (04:46)
[2025-04-22] MEDS: diphenhydrAMINE 50 MG/ML VIAL 25 MG IV (04:47)
[2025-04-22] MEDS: DEXAMETHASONE 10 MG/ML VIAL IV (04:48)
[2025-04-22] MEDS: droPERidol 2.5 MG/ML VIAL 0.625 MG IV (04:49)
--- NOTE | 2025-04-22 04:50 | PC.NURSE ---
Pt to imaging via ED stretcher with biofuels production technician
[2025-04-22 04:53] LABS: Add Manual Diff / Slide Review NO; Hematocrit 40.5 % (36-46); Hemoglobin 14.2 g/dL (12.0-16.0); Lymphocytes Absolute Auto 1600 /uL (1100-4500); Mean Corpuscular HGB Conc 35.1 % (30-36); Mean Corpuscular Hemoglobin 32.0 PG (26-34); Mean Corpuscular Volume 91.3 fL (80-100); Platelet Count 187 X10^3/uL (150-400)
[2025-04-22 04:57] LABS: Alanine Aminotransferase 16 IU/L (<35); Albumin 4.0 g/dL (3.5-5.0); Albumin Globulin Ratio 1.4 (1.0-2.8); Alkaline Phosphatase 62 U/L (38-126); Blood Urea Nitrogen 18 mg/dL (7-17); Calcium 9.0 mg/dL (8.4-10.2); Carbon Dioxide 28 mmol/L (22-32); Chloride 103 mmol/L (98-107); Estimated Glomerular Filt Rate > 60 mL/min (>60); Globulin 2.8 g/dL (1.7-4.1); Glucose 104 mg/dL (70-99); HEMOLYSIS < 15 (0-50); Potassium 4.2 mmol/L (3.4-5.1); Sodium 137 mmol/L (137-145); Total Protein 6.8 g/dL (6.3-8.2)
== END 2025-04-22 06:42 | disposition home or self-care (01) ==
PROVIDERS: Emergency Provider Emergency Medicine; PCP Family Medicine
DX: G43.909 Migraine, unspecified, not intractable, without status migrainosus (principal); I10 Essential (primary) hypertension; I25.2 Old myocardial infarction
CPT/HCPCS: 36415; 70450; 80053; 85025; 85651; 86140; 96361; 96374; 96375; 99284; J1100; J1200; J1790

== ENCOUNTER → 2025-08-27 14:10 | Outpatient (CLI) | payer MEDICARE, SELFPAY ==
[2025-08-27 11:33] VITALS: BMI 26.7
[2025-08-27 15:29] LABS: Uric Acid 5.1 mg/dL (2.5-6.2)
== END ==
LOC: LAB 14:12
PROVIDERS: PCP Family Medicine; Referring Provider Family Medicine; Visit Provider Family Medicine
DX: M79.89 Other specified soft tissue disorders (principal)
CPT/HCPCS: 36415; 84550

== ENCOUNTER → 2025-09-13 15:56 | Outpatient (CLI) | payer MEDICARE, SELFPAY ==
[2025-08-27 11:33] VITALS: BMI 26.7
--- NOTE | 2025-09-13 16:01 | DI.RAD.S_ITS ---
PROCEDURE: XR FINGER RT MIN 2V INDICATIONS: right pinky finger injury TECHNIQUE: AP hand, 2 views of the 5th finger(s) acquired. COMPARISON: [facility], , FINGER RT, 08/23/2017, 18:50. FINDINGS: Bones: No fractures or dislocations. No suspicious bony lesions. Previous volar plain screw fixation of the distal radius. Moderate PIP and DIP joint space narrowing of the 2nd through 5th digits. Soft tissues: No suspicious soft tissue calcifications. IMPRESSION: No acute bony abnormality. Dictated by: Debi Coleman M.D. on 09/14/2025 at 13:21 Approved by: Debi Coleman M.D. on 09/14/2025 at 13:22
== END ==
LOC: RAD 15:58
PROVIDERS: PCP Family Medicine; Referring Provider Family Medicine; Visit Provider Family Medicine
DX: M79.644 Pain in right finger(s) (principal); S69.90XA Unspecified injury of unspecified wrist, hand and finger(s), initial encounter
CPT/HCPCS: 73140

== ENCOUNTER 2025-09-26 15:33 | Emergency (ER) | payer MEDICARE, SELFPAY ==
[2025-08-27 11:33] VITALS: BMI 26.7
[2025-09-26] VITALS (7 sets, daily range): BP systolic 146–162; BP diastolic 71–86; PULSE 54–77; RESP 16–20; TEMP 36.1; O2SAT 94–99; BMI 26.6
--- NOTE | 2025-09-26 15:43 | DI.CT.S_ITS ---
PROCEDURE: CT HEAD/BRAIN WO CON INDICATIONS: Positive BE-FAST, Stroke symptoms TECHNIQUE: Noncontrast 4.5 mm thick angled axial sections acquired from the foramen magnum to the vertex, with coronal and sagittal reformats. For radiation dose reduction, the following was used: automated exposure control, adjustment of mA and/or kV according to patient size. COMPARISON: [facility], CT, CT ANGIO HEAD AND NECK, 09/26/2025, 15:48. [facility], CT, CT HEAD/BRAIN WO CON, 04/22/2025, 4:46. FINDINGS: Image quality: Diagnostic. CSF spaces: Basal cisterns are patent. No extra-axial fluid collections. Ventricles are normal in size and shape. Brain: No midline shift. No intracranial mass effect or hemorrhage. [place]- white matter interface is normal. Diffuse cerebral volume loss. Patchy areas of white matter hypoattenuation often associated with small vessel ischemic disease. Intracranial atherosclerotic calcification. Skull and face: Calvarium and visualized facial bones are intact, without suspicious lesions. Sinuses: Visualized sinuses and mastoids are clear. IMPRESSION: No acute ischemic changes. Dictated by: Jaspreet Campbell M.D. on 09/26/2025 at 16:43 Approved by: Jaspreet Campbell M.D. on 09/26/2025 at 16:49
--- NOTE | 2025-09-26 15:43 | DI.CT.S_ITS ---
PROCEDURE: CT ANGIO HEAD AND NECK INDICATIONS: r/o stroke TECHNIQUE: After the administration of intravenous contrast, 1 mm thick sections acquired from the aortic arch through the [place]. 3-dimensional kvhqgid-oekwkssnc-dxsbxlpmkn (MIP) and/or volume rendering reformats were acquired of the central intracranial vasculature and neck separately. For radiation dose reduction, the following was used: automated exposure control, adjustment of mA and/or kV according to patient size. COMPARISON: [facility], CT, CT ANGIO HEAD AND NECK, 01/13/2025, 9:19. FINDINGS: Image quality: Diagnostic. Cerebral CT Angiogram: Internal carotid arteries: No acute findings. Intracranial atherosclerotic calcifications at the cavernous portions. Intracranial ICA are patent with no significant stenosis. No occlusion. No aneurysm. Anterior cerebral arteries: Unremarkable. No significant stenosis. No occlusion. No aneurysm. Middle cerebral arteries: Unremarkable. No significant stenosis. No occlusion. No aneurysm. Posterior cerebral arteries: Unremarkable. No significant stenosis. No occlusion. No aneurysm. Basilar artery: Unremarkable. No significant stenosis. No occlusion. No aneurysm. Vertebral arteries: Unremarkable as visualized. Dural venous sinuses: Unremarkable given phase of enhancement. Other: Arterial phase appearance of the brain parenchyma is unremarkable. Neck CT Angiogram: Internal carotid arteries: Trace mural calcification. No significant stenosis. No dissection or occlusion. Common carotid arteries: Unremarkable. No significant stenosis. No dissection or occlusion. External carotid arteries: Unremarkable. No occlusion. Vertebral arteries: Unremarkable. No significant stenosis. No dissection or occlusion. Aortic Arch and Mediastinum: Partially visualized aortic arch unremarkable without evidence of aneurysm. Origins of the great vessels unremarkable. Other: Degenerative changes of the cervical spine. IMPRESSION: No significant intracranial arterial abnormality is seen. No significant abnormality is seen within the arteries of the neck. Any quantitative measurements of stenosis were performed using NASCET criteria. Dictated by: Jaspreet Campbell M.D. on 09/26/2025 at 16:50 Approved by: Jaspreet Campbell M.D. on 09/26/2025 at 16:54
--- NOTE | 2025-09-26 15:43 | DI.RAD.S_ITS ---
PROCEDURE: XR CHEST 1V INDICATIONS: Possible stroke TECHNIQUE: One view of the chest was acquired. COMPARISON: None. FINDINGS: Surgical changes and devices: None. Lungs and pleura: Lungs are clear. No pleural effusions or pneumothorax. Mediastinum: Mediastinal contours appear normal. Heart size is normal. Bones and chest wall: No suspicious bony lesions. Overlying soft tissues appear unremarkable. IMPRESSION: No acute cardiopulmonary abnormality is seen. Dictated by: Jonathan Kendall M.D. on 09/26/2025 at 15:15 Approved by: Jonathan Kendall M.D. on 09/26/2025 at 15:15
[2025-09-26 16:17] LABS: INR 1.0 (0.9-1.3); Prothrombin Time 11.3 SECONDS (9.4-12.5)
[2025-09-26 16:20] LABS: PTT Partial Thromboplastin Tim 27 SECONDS (25.1-36.5)
[2025-09-26 16:21] LABS: Alanine Aminotransferase 18 IU/L (<35); Albumin 4.0 g/dL (3.5-5.0); Albumin Globulin Ratio 1.4 (1.0-2.8); Alkaline Phosphatase 60 U/L (38-126); Blood Urea Nitrogen 19 mg/dL (7-17); Calcium 8.7 mg/dL (8.4-10.2); Carbon Dioxide 25 mmol/L (22-32); Chloride 105 mmol/L (98-107); Creatine Kinase 93 U/L (30-135); Estimated Glomerular Filt Rate 59 mL/min (>60); Globulin 2.9 g/dL (1.7-4.1); Glucose 129 mg/dL (70-99); HEMOLYSIS 39 (0-50); Potassium 3.9 mmol/L (3.4-5.1); Sodium 137 mmol/L (137-145); Total Protein 6.9 g/dL (6.3-8.2)
[2025-09-26 16:25] LABS: Add Manual Diff / Slide Review NO; Hematocrit 41.4 % (36-46); Hemoglobin 14.3 g/dL (12.0-16.0); Lymphocytes Absolute Auto 1400 /uL (1100-4500); Mean Corpuscular HGB Conc 34.5 % (30-36); Mean Corpuscular Hemoglobin 32.0 PG (26-34); Mean Corpuscular Volume 92.8 fL (80-100); Platelet Count 194 X10^3/uL (150-400)
[2025-09-26 16:33] LABS: Troponin I < 0.012 ng/mL (0.01-0.034)
--- NOTE | 2025-09-26 16:56 | ED.NEUROSD ---
HPI - Neuro Symptoms/Deficit General Chief Complaint: Neuro Symptoms/Deficit Stated Complaint: episode today, numb hand/arm and speech slur Time Seen by Provider: 09/26/25 16:35 Source: patient and family Mode of arrival: Ambulatory History of Present Illness HPI Narrative: Patient is a 80-year-old female history of migraines hyperlipidemia presenting to day with migraine and right hand numbness. She reports that she developed a typical migraine headache earlier in the day she had an aura she took her Fioricet which usually helps and did. She had some relief from her headache and then she developed slurring of speech and right arm and hand numbness. No weakness. She was actually at a store her has been witnessed it, the transfer clerk and could all understand what she was saying but it was altered. Symptoms lasted for about 15 minutes and resolved. She is now complaining of a headache again. She does report that she has previously had TIAs in the past. LKW 1530, symptoms lasted for about 10 minutes On Anticoagulants: No Related Data Home Medications ?Medication ?Instructions ?Recorded ?Confirmed cholecalciferol (vitamin D3) 25 25 mcg PO DAILY 08/15/23 09/22/25 mcg (1,000 unit) tablet omega-3 fatty acids 1,250 mg 1,250 mg PO DAILY 08/15/23 09/22/25 capsule aspirin 81 mg tablet,delayed 81 mg PO DAILY 01/27/25 09/22/25 release (Adult Low Dose Aspirin) omeprazole 10 mg capsule,delayed 10 mg PO DAILY 01/27/25 09/22/25 release sumatriptan succinate 25 mg tablet 25 mg PO Q2-4H PRN 09/22/25 09/22/25 Previous Rx's ?Medication ?Instructions ?Recorded cnodtcyqoq-rjjnidqvjbmvn-evsrhibx 1 cap PO Q4-6H PRN pain #14 caps 01/27/23 50 mg-300 mg-40 mg capsule (Fioricet) atorvastatin 20 mg tablet 20 mg PO DAILY #90 tabs 05/17/25 Allergies Allergy/AdvReac Type Severity Reaction Status Date / Time droperidol AdvReac Severe Hallucinati Verified 09/26/25 15:36 ng Review of Systems Hematologic/Lymphatic On Anticoagulants: No Patient History Medical History Hallucinations TIA (transient ischemic attack) Hyperkalemia Diarrhea Sprain of right thumb Left wrist fracture Pustule of nostril Vaginal irritation TIA (transient ischemic attack) Coronary artery disease Surgical History H/O total knee replacement Family History Mother Congenital heart disease Family/Other Cancer Social History household members: spouse Smoking Status: Never smoker alcohol intake frequency: 0-2 drinks per day Exam Initial Vital Signs Initial Vital Signs: Vital Signs Temperature 97.0 F L 09/26/25 15:36 Pulse Rate 54 L 09/26/25 15:36 Respiratory Rate 16 09/26/25 15:36 Blood Pressure 146/82 H 09/26/25 15:36 Pulse Oximetry 96 09/26/25 15:36 Oxygen Delivery Method Room Air 09/26/25 15:36 GENERAL: Alert pleasant well-appearing 72-year-old female and in no acute distress. HEENT: Head atraumatic,EOMI, pupils reactive, face symmetric, moist mucous membranes CARDIOVASCULAR: Regular rate and rhythm without murmurs, rubs or gallops. RESPIRATORY: Breath sounds equal bilaterally, no wheezes rales or rhonchi. ABDOMEN: Soft, nontender. Normoactive bowel sounds all 4 quadrants. No guarding or rebound. EXTREMITIES: Normal range of motion, no clubbing or edema. Neurovascularly intact NEUROLOGICAL: Alert and oriented x4.Normal gait and speech. Cranial nerves II through XII grossly intact. Good ggbnzx-uv-iekc, good ijxe-vt-omyq, strength equal bilaterally, no dysarthria or aphasia, sensation in tact to soft touch bilaterally, no visual changes, no facial droop SKIN: Warm, dry, no laceration, no petechiae, no rashes or lesions. Scores NIH Stroke Scale Level of Conciousness: Alert, keenly responsive Ask month/age: Answers both questions correctly. Open/close eyes, close hand: Performs both tasks correctly Best gaze horizontal: Normal Visual dunlap: No visual loss Facial palsy: Normal symetrical movement Left arm drift: No drift for full 10 sec Right arm drift: No drift for full 10 sec Left leg drift: No drift for full 5 sec Right leg drift: No drift for full 5 sec Limb ataxia: Absent Sensory on face/arms/legs: Normal, no sensory loss Best language: No aphasia, normal Dysarthria: Normal Extinction or inattention: No abnormality Total NIH Stroke scale score: 0 Course Orders Ordered: Discontinued Medications Sodium Chloride (Normal Saline 0.9%) 500 mls @ 1,000 mls/hr IV BOLUS ONE Stop: 09/26/25 17:25 Last Infusion: 09/26/25 18:06 Dose: Infused Documented By: Admin: 09/26/25 17:13 Dose: 1,000 mls/hr Documented By: SENA Ketorolac Tromethamine (Ketorolac 30 Mg/Ml Vial) 15 mg IV NOW ONE Stop: 09/26/25 16:57 Last Admin: 09/26/25 17:10 Dose: 15 mg Documented By: SENA Ondansetron HCl (Ondansetron 4 Mg/2 Ml Inj) 4 mg IV NOW PRN PRN Reason: Nausea And Vomiting Last Admin: 09/26/25 17:10 Dose: 4 mg Documented By: SENA Ondansetron HCl (Ondansetron 4 Mg Odt) 4 mg PO NOW PRN PRN Reason: Nausea And Vomiting Vital Signs Vital signs: Vital Signs - 8 hr 09/26/25 15:36 09/26/25 16:38 09/26/25 16:38 Temperature 97.0 F L Pulse Rate 54 L 77 Respiratory Rate 16 16 Blood Pressure 146/82 H 162/86 H Pulse Oximetry 96 99 Oxygen Delivery Method Room Air 09/26/25 17:00 09/26/25 17:00 09/26/25 17:30 Temperature Pulse Rate 63 70 Respiratory Rate 20 Blood Pressure 154/71 H Pulse Oximetry 97 94 Oxygen Delivery Method 09/26/25 18:00 09/26/25 18:00 Temperature Pulse Rate 64 Respiratory Rate Blood Pressure 159/73 H Pulse Oximetry Oxygen Delivery Method MDM - Neuro Symptoms/Deficit Lab Data 09/26/25 15:55 09/26/25 15:55 Labs: Lab Results 09/26/25 09/26/25 Range/Units 15:55 16:30 WBC 6.1 (4.5-11.0) X10^3/uL RBC 4.47 (4.0-5.2) X10^6/uL Hgb 14.3 (12.0-16.0) g/dL Hct 41.4 (36-46) % MCV 92.8 (80-100) fL MCH 32.0 (26-34) PG MCHC 34.5 (30-36) % RDW 12.9 (11.6-14.8) % Plt Count 194 (150-400) X10^3/uL Neut % (Auto) 65.2 (50-75) % Lymph % (Auto) 22.4 L (25-40) % [place] % (Auto) 7.5 (3-14) % Eos % (Auto) 3.8 (2-4) % Baso % (Auto) 1.1 (0-2) % Neut # (Auto) 4000 (9919-4894) /uL Lymph # (Auto) 1400 (8029-3971) /uL [place] # (Auto) 500 (0-900) /uL Eos # (Auto) 200 (0-450) /uL Baso # (Auto) 100 (0-100) /uL PT 11.3 (9.4-12.5) SECONDS INR 1.0 (0.9-1.3) APTT 27 (25.1-36.5) SECONDS Sodium 137 (137-145) mmol/L Potassium 3.9 (3.4-5.1) mmol/L Chloride 105 (98-107) mmol/L Carbon Dioxide 25 (22-32) mmol/L BUN 19 H (7-17) mg/dL Creatinine 0.98 (0.52-1.04) mg/dL Estimated GFR 59 L (>60) mL/min BUN/Creatinine Ratio 19.4 (6-22) Glucose 129 H (70-99) mg/dL Calcium 8.7 (8.4-10.2) mg/dL Total Bilirubin 0.3 (0.2-1.3) mg/dL AST 29 (14-36) IU/L ALT 18 (<35) IU/L Alkaline Phosphatase 60 (38-126) U/L Total Creatine Kinase 93 (30-135) U/L Troponin I < 0.012 (0.01-0.034) ng/mL Total Protein 6.9 (6.3-8.2) g/dL Albumin 4.0 (3.5-5.0) g/dL Globulin 2.9 (1.7-4.1) g/dL Albumin/Globulin Ratio 1.4 (1.0-2.8) U Opiates 300ng/mL cut Positive H (Negative) Ur Oxycodone Screen Negative (Negative) Urine Methadone Screen Negative (Negative) Ur Barbiturates Screen Positive H (Negative) U Tricyclic Antidepress Negative (Negative) Ur Phencyclidine Scrn Negative (Negative) Ur Amphetamines Screen Negative (Negative) U Methamphetamines Scrn Negative (Negative) Ur MDMA Scrn (Ecstasy) Negative (Negative) U Benzodiazepines Scrn Negative (Negative) Urine Cocaine Screen Negative (Negative) U Marijuana (THC) Screen Negative (Negative) Urine pH Normal (Normal) Urine Specific [place] Normal (Normal) Ur Creatinine Normal (Normal) Urine Dip Bedside Urine Glucose Negative Bedside Urine Bilirubin - Negative Bedside Urine Ketone - Negative Urine Specific [place] 1.015 Bedside Urine Occult Blood - Negative Bedside Urine pH 6 Bedside Urine Protein - Negative Bedside Urine Urobilinogen - Negative Bedside Urine Nitrite - Negative Bedside Urine Leukocytes - Negative Esterase Imaging Data CT scan - head: Radiologist's Impression: PROCEDURE: CT HEAD/BRAIN WO CON INDICATIONS: Positive BE-FAST, Stroke symptoms TECHNIQUE: Noncontrast 4.5 mm thick angled axial sections acquired from the foramen magnum to the vertex, with coronal and sagittal reformats. For radiation dose reduction, the following was used: automated exposure control, adjustment of mA and/or kV according to patient size. COMPARISON: [facility], CT, CT ANGIO HEAD AND NECK, 09/26/2025, 15:48. [facility], CT, CT HEAD/BRAIN WO CON, 04/22/2025, 4:46. FINDINGS: Image quality: Diagnostic. CSF spaces: Basal cisterns are patent. No extra-axial fluid collections. Ventricles are normal in size and shape. Brain: No midline shift. No intracranial mass effect or hemorrhage. [place]-white matter interface is normal. Diffuse cerebral volume loss. Patchy areas of white matter hypoattenuation often associated with small vessel ischemic disease. Intracranial atherosclerotic calcification. Skull and face: Calvarium and visualized facial bones are intact, without suspicious lesions. Sinuses: Visualized sinuses and mastoids are clear. IMPRESSION: No acute ischemic changes. Dictated by: Jaspreet Campbell M.D. on 09/26/2025 at 16:43 CTA - brain/neck: Radiologist's Impression: PROCEDURE: CT ANGIO HEAD AND NECK INDICATIONS: r/o stroke TECHNIQUE: After the administration of intravenous contrast, 1 mm thick sections acquired from the aortic arch through the [place] of [place]. 3-dimensional kunbpyr-kgjxxrtdr-yseqhvynoo (MIP) and/or volume rendering reformats were acquired of the central intracranial vasculature and neck separately. For radiation dose reduction, the following was used: automated exposure control, adjustment of mA and/or kV according to patient size. COMPARISON: [facility], CT, CT ANGIO HEAD AND NECK, 01/13/2025, 9:19. FINDINGS: Image quality: Diagnostic. Cerebral CT Angiogram: Internal carotid arteries: No acute findings. Intracranial atherosclerotic calcifications at the cavernous portions. Intracranial ICA are patent with no significant stenosis. No occlusion. No aneurysm. Anterior cerebral arteries: Unremarkable. No significant stenosis. No occlusion. No aneurysm. Middle cerebral arteries: Unremarkable. No significant stenosis. No occlusion. No aneurysm. Posterior cerebral arteries: Unremarkable. No significant stenosis. No occlusion. No aneurysm. Basilar artery: Unremarkable. No significant stenosis. No occlusion. No aneurysm. Vertebral arteries: Unremarkable as visualized. Dural venous sinuses: Unremarkable given phase of enhancement. Other: Arterial phase appearance of the brain parenchyma is unremarkable. Neck CT Angiogram: Internal carotid arteries: Trace mural calcification. No significant stenosis. No dissection or occlusion. Common carotid arteries: Unremarkable. No significant stenosis. No dissection or occlusion. External carotid arteries: Unremarkable. No occlusion. Vertebral arteries: Unremarkable. No significant stenosis. No dissection or occlusion. Aortic Arch and Mediastinum: Partially visualized aortic arch unremarkable without evidence of aneurysm. Origins of the great vessels unremarkable. Other: Degenerative changes of the cervical spine. IMPRESSION: No significant intracranial arterial abnormality is seen. No significant abnormality is seen within the arteries of the neck. Any quantitative measurements of stenosis were performed using NASCET criteria. Dictated by: Jaspreet Campbell M.D. on 09/26/2025 at 16:50 ECG Data Attestation: I personally reviewed and interpreted this ECG as follows: Prior ECG tracings: not available for review Interpretation: Normal rhythm rate 63 HI interval 128 QRS [address] changes no T-wave inversions MDM Narrative Medical decision making narrative: MDM CC: Headache Complicating co-morbidities: TIA migraine had hypertension hyperlipidemia Data collected from: Patient Medical records reviewed: PCP note from 09/22/2025, reports history of TIA and hypertension Differential considered: Complicated migraine versus TIA versus CVA Exam documented above, pertinent findings include: Patient 80-year-old female has a NIH stroke scale of 0 not currently in pain no focal deficits Lab Test results independently reviewed as above. Pertinent findings: CBC no leukocytosis no anemia no abnormality Electrolytes CMP within normal limits Troponin negative Bilirubin liver enzymes within normal Independently reviewed EKG as above Sinus rhythm Imaging studies independently reviewed: CT head no intracranial hemorrhage Head and neck angio no large vessel occlusion Consultations: 1820 Dr. Engel, Neurology at [facility] thinks likely complicated migraine but she does have lots of small vessel disease at risk for TIA. Would also recommend other medication for migraine headaches Treatments: [ ] Re-evaluations: Patient starting to have a migraine like headache given Toradol and IV fluids Discussion: Patient is 72-year-old female presenting today with what sounds like was not an aura and headache took Fioricet got better. She then had numbness tingling of her right hand which and slurring of speech which lasted 10 minutes which symptoms completely resolved. She then developed a sore another headache while in the ED. Imaging workup in the ED is overall negative. Consulting stroke for complicated migraine versus TIA. thinks to be likely more of a complicated migraine. Discussion with patient she agrees now sometimes having tingling in the left rather than right. Headache is generally getting better after Toradol. Recommended outpatient MRI discussion with her about she is at risk for stroke she has small-vessel disease her CT per neurology. Discharge Plan Departure Patient Disposition: Home Clinical Impression: Complicated migraine Instructions: Migraine -- Adult Activity Restrictions/Additional Instructions: *You have been diagnosed with complicated migraines *What to do: At this time you are at risk for more TIAs and CVAs but you likely had a complicated migraine today which does happen. Neurology suggested seeing headache clinic and possible other medication for your migraine *Continue to take medications as directed *Follow up with your primary care provider in 2-3 days or call [phone] *Return to ER if you should have worsening headache numbness tingling weakness difficulty speaking facial droop or any new, worsening or concerning symptoms Prescriptions: No Action aspirin [Adult Low Dose Aspirin] 81 mg tablet,delayed release (DR/EC) 81 mg PO DAILY omeprazole 10 mg capsule,delayed release(DR/EC) 10 mg PO DAILY sumatriptan succinate 25 mg tablet 25 mg PO Q2-4H PRN Rx Instructions: TAKE 1 TABLET BY MOUTH AT ONSET OF MIGRAINE MAY REPEAT IN TWO HOURS MAX 4 IN TWENTY-FOUR HOURS omega-3 fatty acids 1,250 mg capsule 1,250 mg PO DAILY cholecalciferol (vitamin D3) 25 mcg (1,000 unit) tablet 25 mcg PO DAILY atorvastatin 20 mg tablet 20 mg PO DAILY Qty: 90 3RF jyrldrhbwl-ksxfhfqzuuioo-qmni [Fioricet] 50-300-40 mg capsule 1 cap PO Q4-6H PRN (Reason: pain) Qty: 14 0RF Referrals: Lana Hays DO [Primary Care Provider, Family Practice] Stand Alone Forms: Patient Portal/API
[2025-09-26] MEDS: KETOROLAC 30 MG/ML VIAL 15 MG IV (17:10)
[2025-09-26] MEDS: ONDANSETRON 4 MG/2 ML INJ IV (17:10)
[2025-09-26] MEDS: SODIUM CHLORIDE 0.9% 500 ML 1000 ML IV (17:13)
--- NOTE | 2025-09-26 17:13 | EKG_ITS ---
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
[2025-09-26 17:52] LABS: UR Morphine/Opiate cutoff 300 Positive (Negative); Ur Specific Gravity Normal (Normal); Urine MDMA Negative (Negative); Urine Methamphetamines Negative (Negative); Urine Tetrahydrocannabinol Negative (Negative); Urine Tricyclic Antidepressant Negative (Negative)
== END 2025-09-26 19:36 | disposition home or self-care (01) ==
PROVIDERS: Emergency Provider Emergency Medicine; PCP Family Medicine
DX: G43.109 Migraine with aura, not intractable, without status migrainosus (principal); R20.0 Anesthesia of skin
CPT/HCPCS: 70450; 70496; 70498; 71045; 80053; 80305; 81003; 82550; 84484; 85025; 85610; 85730; 93005; 96361; 96374; 96375; 99284; J1885; J2405; J7040; Q9967